=== PATIENT | female | born 1985 | race American Indian/Alaskan Native ===

== ENCOUNTER → 2020-07-06 08:53 | Outpatient (BNVA) | payer MEDICAID, SELFPAY | PROVIDERS: PCP Family Medicine; Visit Provider Advanced Practice Midwife | DX: Z30.42 Encounter for surveillance of injectable contraceptive (principal) | CPT/HCPCS: 96372; 99211 ==

== ENCOUNTER 2020-07-13 11:06 | Outpatient (REF) | payer MEDICAID, SELFPAY ==
[2020-07-13 16:07] LABS: CT PCR NOT DETECTED (Not Detect.); NG PCR NOT DETECTED (Not Detect.)
[2020-07-14 12:22] LABS: BV Int Neg Control Negative (Negative); BV Int Pos Control Positive (Positive)
[2020-07-15 12:26] LABS: HIV RNA PCR Qn Copies <20 NOT DETECTED copies/mL (NOT DETECTED); HIV RNA PCR Qn Log Copies <1.30 NOT DETECTED (NOT DETECTED)
[2020-07-16 08:50] LABS: HBsAGNum1 0.19 S/CO (0.00-0.99); Hepatitis B Surface Antigen Negative (Negative)
[2020-07-18 05:08] LABS: Syphilis Screen Nonreactive (Nonreactive)
[2020-07-19 21:13] LABS: HPV mRNA E6/E7 Not Detected (Not Detected)
== END 2020-07-13 11:07 | disposition home or self-care (01) ==
LOC: HO.LAB 11:06
PROVIDERS: PCP Family Medicine; Visit Provider Obstetrics & Gynecology
DX: N93.0 Postcoital and contact bleeding (principal); Z11.3 Encounter for screening for infections with a predominantly sexual mode of transmission; Z98.51 Tubal ligation status
CPT/HCPCS: 86780; 87340; 87480; 87491; 87510; 87536; 87591; 87624; 87625; 87660; 88142; 99213

== ENCOUNTER 2020-07-19 16:13 | Outpatient (REF) | payer MEDICAID, SELFPAY | END 2020-07-19 16:14 | disposition home or self-care (01) | LOC: HO.LAB 16:13 | PROVIDERS: Visit Provider Obstetrics & Gynecology | DX: Z13.89 Encounter for screening for other disorder (principal) ==

== ENCOUNTER → 2020-08-01 13:05 | Outpatient (BNVA) | payer MEDICAID, SELFPAY | PROVIDERS: PCP Family Medicine; Referring Provider Family Medicine; Visit Provider Advanced Practice Midwife | DX: Z76.89 Persons encountering health services in other specified circumstances (principal) ==

== ENCOUNTER → 2020-09-21 12:56 | Outpatient (BNVA) | payer MEDICAID, SELFPAY | PROVIDERS: Visit Provider Advanced Practice Midwife | DX: Z30.42 Encounter for surveillance of injectable contraceptive (principal) | CPT/HCPCS: 96372; 99211; J1050 ==

== ENCOUNTER → 2020-10-30 09:44 | Outpatient (BNVA) | payer MEDICAID, SELFPAY | PROVIDERS: PCP Family Medicine; Visit Provider Surgery | DX: N64.4 Mastodynia (principal); Z80.3 Family history of malignant neoplasm of breast; Z80.41 Family history of malignant neoplasm of ovary | CPT/HCPCS: 99202 ==

== ENCOUNTER 2020-11-12 08:42 | Outpatient (REF) | payer MEDICAID, SELFPAY ==
[2020-11-12 10:27] LABS: Hematocrit 37.2 % (37-47); Hemoglobin 12.3 g/dl (12.0-16.0); Mean Corpuscular HGB Conc 33.1 g/dl (31.0-35.0); Mean Corpuscular Hemoglobin 25.5 pg (27.0-33.0); Mean Corpuscular Volume 77.2 fL (80-98); Mean Platelet Volume 11.1 fL (9.4-12.3); Platelet Count 247 X10*3/uL (160-400); Red Blood Count 4.82 X10*6/uL (4.20-5.50)
[2020-11-12 11:10] LABS: TSH reflex Free T4 1.09 uIU/mL (0.32-4.0)
== END 2020-11-12 08:43 | disposition home or self-care (01) ==
LOC: HO.LAB 08:42
PROVIDERS: PCP Family Medicine; Visit Provider Advanced Practice Midwife
DX: R30.0 Dysuria (principal); N93.9 Abnormal uterine and vaginal bleeding, unspecified; N89.8 Other specified noninflammatory disorders of vagina
CPT/HCPCS: 36415; 81003; 84443; 85027; 87086; 87088; 87186; 87210; 99212

== ENCOUNTER → 2020-12-07 10:58 | Outpatient (BNVA) | payer MEDICAID, SELFPAY | PROVIDERS: PCP Family Medicine; Visit Provider Advanced Practice Midwife | DX: Z30.42 Encounter for surveillance of injectable contraceptive (principal) | CPT/HCPCS: 96372; 99211 ==

== ENCOUNTER 2020-12-12 11:00 | Outpatient (REF) | payer MEDICAID, SELFPAY ==
--- NOTE | ~2020-12-12 | US_ITS ---
EXAMINATION: US PELVIS COMPLETE CLINICAL INFORMATION: Abnormal uterine bleeding. COMPARISON: Ultrasound pelvis 02/02/2020. TECHNIQUE: Transabdominal and transvaginal imaging of pelvis is performed. FINDINGS: The uterus is anteverted and anteflexed measuring 8.7 cm in length, 4.0 cm in AP and 4.7 cm in transverse dimension. There is a hypoechoic lesion in the anterior lower uterus measuring 1.0 x 0.6 x 0.7 cm consistent with fibroid. There is echogenic fluid with debris within the endometrial canal. Endometrial thickness is 0.4 cm. The right ovary measures 2.5 x 2.2 x 1.7 cm, volume 4.9 mL. There are small follicular cysts seen. The right ovary measures 2.8 x 1.4 x 2.4 cm. The left ovary measures 2.6 x 1.6 x 2.5 cm and volume 5.4 mL. There are small follicular cysts seen. Previously left ovary measured 4.4 x 2.0 x 2.5 cm. There is a small amount of free fluid in the cul-de-sac. US/US pelvic complete IMPRESSION: Small uterine fibroid. Endometrial echogenic fluid collection with internal debris, likely from recent menses. The ovaries are grossly unremarkable. No free fluid seen. No abnormality seen in the right adnexa.
--- NOTE | ~2020-12-12 | US_ITS ---
EXAMINATION: US PELVIS COMPLETE CLINICAL INFORMATION: Abnormal uterine bleeding. COMPARISON: Ultrasound pelvis 02/02/2020. TECHNIQUE: Transabdominal and transvaginal imaging of pelvis is performed. FINDINGS: The uterus is anteverted and anteflexed measuring 8.7 cm in length, 4.0 cm in AP and 4.7 cm in transverse dimension. There is a hypoechoic lesion in the anterior lower uterus measuring 1.0 x 0.6 x 0.7 cm consistent with fibroid. There is echogenic fluid with debris within the endometrial canal. Endometrial thickness is 0.4 cm. The right ovary measures 2.5 x 2.2 x 1.7 cm, volume 4.9 mL. There are small follicular cysts seen. The right ovary measures 2.8 x 1.4 x 2.4 cm. The left ovary measures 2.6 x 1.6 x 2.5 cm and volume 5.4 mL. There are small follicular cysts seen. Previously left ovary measured 4.4 x 2.0 x 2.5 cm. There is a small amount of free fluid in the cul-de-sac. US/US transvaginal IMPRESSION: Small uterine fibroid. Endometrial echogenic fluid collection with internal debris, likely from recent menses. The ovaries are grossly unremarkable. No free fluid seen. No abnormality seen in the right adnexa.
== END 2020-12-12 11:01 | disposition home or self-care (01) ==
LOC: HO.US 11:00
PROVIDERS: Visit Provider Advanced Practice Midwife
DX: N93.9 Abnormal uterine and vaginal bleeding, unspecified (principal); Z80.41 Family history of malignant neoplasm of ovary
CPT/HCPCS: 76830; 76856; 99212

== ENCOUNTER → 2020-12-24 11:28 | Outpatient (BNVA) | payer MEDICAID, SELFPAY | PROVIDERS: PCP Family Medicine; Visit Provider Advanced Practice Midwife ==

== ENCOUNTER 2020-12-31 08:07 | Outpatient (REF) | payer MEDICAID, SELFPAY ==
[2021-01-01 08:53] LABS: CT PCR NOT DETECTED (Not Detect.); NG PCR NOT DETECTED (Not Detect.)
== END 2020-12-31 08:08 | disposition home or self-care (01) ==
LOC: HO.LAB 08:07
PROVIDERS: PCP Family Medicine; Visit Provider Obstetrics & Gynecology
DX: N93.0 Postcoital and contact bleeding (principal); D25.9 Leiomyoma of uterus, unspecified
CPT/HCPCS: 87491; 87591; 99212

== ENCOUNTER 2021-01-11 08:42 | Outpatient (REF) | payer MEDICAID, SELFPAY ==
[2021-01-11 09:13] LABS: COVID-19 Test Negative (Negative)
== END 2021-01-11 08:43 | disposition home or self-care (01) ==
LOC: HO.LAB 08:42
PROVIDERS: Visit Provider Internal Medicine
DX: Z20.822 Contact with and (suspected) exposure to COVID-19 (principal)
CPT/HCPCS: 36415; 87635; C9803

== ENCOUNTER 2021-01-14 10:03 | Outpatient (REF) | payer MEDICAID, SELFPAY ==
--- NOTE | ~2021-01-14 | MM_ITS ---
EXAMINATION: MM DIAGNOSTIC DIGITAL BREAST TOMOSYNTHESIS, BILATERAL US DIAGNOSTIC ULTRASOUND BREAST, LEFT CLINICAL INFORMATION: 35-year-old with recent palpable fullness and tenderness posterior upper outer left breast near axilla. Symptoms have resolved since making appointment. Family history multiple cancers. Patient notes personal BRCA testing negative. No prior breast imaging. The lifetime risk of breast cancer based on the Tyrer-Cuzick Model is 19%. COMPARISON: None (current study represents initial baseline exam). TECHNIQUE: Digital breast tomosynthesis is performed in both the craniocaudal and mediolateral oblique views along with computer-aided detection (CAD). Synthesized 2D images are generated from the tomosynthesis. Ultrasound left breast is targeted to the area of recent clinical concern, posterior upper outer quadrant/axilla. Grayscale imaging and color Doppler are performed without and with harmonics. FINDINGS: The breasts are heterogeneously dense, which may obscure small masses (ACR BI-RADS breast composition Category c). There are no significant masses, abnormal calcifications, or other abnormalities. No adenopathy. The skin contours are smooth. There is no skin thickening or retraction. No coarsening of the Waldo's ligaments. Ultrasound left breast demonstrates no cystic or solid mass, architectural abnormality, or focal duct ectasia. No lymphadenopathy. There is a benign node seen left axilla measuring under 1 cm short axis with normal tuan architecture and color flow. There is no skin thickening or edema tracking in soft tissue planes. Results are discussed with the patient at time of visit. MM/MM tomosynthesis diagnostic BI IMPRESSION: 1. No mammographic evidence of malignancy. 2. Unremarkable targeted left breast ultrasound. ASSESSMENT: BI-RADS 2: Benign RECOMMENDATION: 1. Patient should be managed based on the clinical impression. 2. Otherwise, routine annual screening mammography, by age 40, or earlier as clinical risk factors warrant. This patient's information was entered into a reminder system with a target due date for their next mammogram.
== END 2021-01-14 10:04 | disposition home or self-care (01) ==
LOC: HO.MAMMO 10:03
PROVIDERS: PCP Family Medicine; Visit Provider Surgery
DX: N64.4 Mastodynia (principal); Z80.3 Family history of malignant neoplasm of breast; Z80.41 Family history of malignant neoplasm of ovary
CPT/HCPCS: 76642; 77062; 77066

== ENCOUNTER 2021-01-29 08:35 | Outpatient (REF) | payer MEDICAID, SELFPAY | END 2021-01-29 08:36 | disposition home or self-care (01) | LOC: HO.LAB 08:35 | PROVIDERS: PCP Family Medicine; Visit Provider Obstetrics & Gynecology | DX: N93.0 Postcoital and contact bleeding (principal) | CPT/HCPCS: 58100; 88305 ==

== ENCOUNTER → 2021-02-12 11:37 | Outpatient (BNVA) | payer MEDICAID, SELFPAY | PROVIDERS: PCP Family Medicine; Visit Provider Obstetrics & Gynecology ==

== ENCOUNTER → 2021-02-27 12:55 | Outpatient (BNVA) | payer MEDICAID, SELFPAY | PROVIDERS: PCP Family Medicine; Visit Provider Advanced Practice Midwife | DX: Z30.42 Encounter for surveillance of injectable contraceptive (principal) | CPT/HCPCS: 96372; 99211; J1050 ==

== ENCOUNTER 2021-04-04 11:06 | Emergency (ER) | payer MEDICAID, SELFPAY ==
--- NOTE | ~2021-04-04 | CT_ITS ---
EXAMINATION: CT ABDOMEN AND PELVIS WITH CONTRAST CLINICAL INFORMATION: Generalized abdominal pain. Evaluate for appendicitis. COMPARISON: Previous CT of the abdomen and pelvis August 2008 pelvic ultrasound December 2020 TECHNIQUE: Multidetector volumetric images were obtained from the superior aspect of the liver through the pubic symphysis following administration 85 mL of Omnipaque 350 intravenous contrast. Sagittal and coronal reformatted images were obtained on the technologist's workstation. Oral contrast: Yes This CT examination was performed using dose optimization techniques as appropriate, variously including the following: *Automated exposure control *Adjustment of mA and/or kV according to patient size (this includes techniques or standardized protocols for targeted exams where dose is matched to indication/reason for exam; i.e. extremities or head) *Use of iterative reconstruction technique DLP: 465 mGy-cm FINDINGS: LUNG BASES: The visualized lung bases are unremarkable. LIVER, GALLBLADDER, AND BILIARY TREE: The liver is normal in size, shape, and attenuation. No focal hepatic lesion or biliary ductal dilatation is present. The gallbladder is unremarkable with no evidence of radiopaque gallstones, gallbladder wall thickening, or obvious pericholecystic inflammatory changes. PANCREAS: Unremarkable. SPLEEN: Unremarkable. ADRENAL GLANDS: Unremarkable. KIDNEYS AND URETERS: The kidneys are normal in size, shape, and attenuation. No hydronephrosis, hydroureter, or calculi seen. No perinephric stranding. BLADDER: Unremarkable. GASTROINTESTINAL TRACT: The small and large bowel are unremarkable. The appendix is unremarkable. ABDOMINAL WALL: There is a small umbilical hernia containing fat. LYMPH NODES: Normal. VASCULAR: Unremarkable. PELVIC VISCERA: There is a probable small anterior uterine fibroid. Uterus and adnexa are otherwise unremarkable. OSSEOUS STRUCTURES: Unremarkable. CT/CT abdomen pelvis w con IMPRESSION: Normal-appearing appendix. Small umbilical hernia containing fat. Small uterine fibroid.
[2021-04-04 11:37] VITALS: BP 109/72; PULSE 74; RESP 18; TEMP 36.6; O2SAT 98; BMI 29.9
[2021-04-04 13:49] VITALS: BP 118/71; PULSE 73; RESP 18; TEMP 36.7; O2SAT 100
[2021-04-04] MEDS: 0.9 % Sodium Chloride 1,000 ML 999 ML IV (14:09)
[2021-04-04 14:15] LABS: MANUAL DIFF FLAG NO
[2021-04-04 14:29] LABS: Basophils Absolute Auto 0.1 X10*3/uL (0.0-0.2); Basophils Percent Auto 0.5 % (0-2); Eosinophils Absolute Auto 0.2 X10*3/uL (0.0-0.4); Eosinophils Percent Auto 1.8 % (0-4); Hematocrit 38.3 % (37-47); Hemoglobin 12.5 g/dl (12.0-16.0); Imm Gran Abs Auto 0.06 X10*3/uL (0.00-0.03); Imm Gran Pct Auto 0.6 % (0.0-0.4); Lymphocytes Absolute Auto 3.1 X10*3/uL (1.2-4.9); Lymphocytes Percent Auto 29.5 % (20-40); Mean Corpuscular HGB Conc 32.6 g/dl (31.0-35.0); Mean Corpuscular Volume 76.6 fL (80-98); Mean Platelet Volume 10.4 fL (9.4-12.3); Monocytes Absolute Auto 0.7 X10*3/uL (0.1-1.2); Neutrophils Absolute Auto 6.4 X10*3/uL (2.0-8.3); Neutrophils Percent Auto 60.6 % (45-73); Platelet Count 289 X10*3/uL (160-400); Red Cell Distribution Width 13.2 % (11.0-16.0); White Blood Count 10.5 X10*3/uL (4.8-10.8)
[2021-04-04 14:33] LABS: Glucose Urine UA NEG (NEG); Leukocyte Esterase Urine TRACE (NEG); Nitrite Urine NEG (NEG); Urine Blood NEG (NEG); Urine Ketones NEG (NEG); Urine Protein NEG (NEG-TRACE)
[2021-04-04 14:39] LABS: Appearance Urine CLEAR; Color Urine YELLOW
[2021-04-04 14:48] LABS: UPreg QC Valid YES; Urine Pregnancy NEGATIVE (NEGATIVE)
[2021-04-04 14:52] LABS: Alanine Aminotransferase 10 U/L (0-31); Albumin Level 4.2 g/dL (3.5-5.0); Alkaline Phosphatase 86 U/L (39-117); Anion Gap 13 (12-20); Aspartate Amino Transferase 14 U/L (5-31); Bilirubin Direct 0.3 mg/dL (0.0-0.5); Bilirubin Total 0.8 mg/dL (0.0-1.0); Blood Urea Nitrogen 10 mg/dL (9-16); Calcium 9.6 mg/dL (8.4-10.2); Carbon Dioxide 24 mmol/L (22-29); Chloride 106 mmol/L (96-108); Creatinine Clr Calc Pharmacy 115.6; Estimated Glomerular Filt Rate > 60; Glucose Random 79 mg/dL (60-115); Lipase 23 U/L (8-78); Magnesium 2.1 mg/dL (1.6-2.6); Potassium 3.9 mmol/L (3.3-5.1); Sodium 139 mmol/L (135-145); Total Protein 7.7 g/dL (6.5-8.0)
--- NOTE | 2021-04-04 14:56 | ED.ABDPAIN ---
HPI - Abdominal Pain General Chief Complaint: Abdominal Pain Stated Complaint: VOMITING Time Seen by Provider: 04/04/21 13:40 Source: patient Mode of arrival: ambulatory Limitations: no limitations History of Present Illness HPI narrative: patient presents to ED for abdominal pain /cramping for the past 2 weeks. Patient states has not had a normal bowel movement 2 weeks. states only having small drops of bowel movement when she use the bathroom. Patient states also she has been working out a lot and trying a new protein drinks. Patient denies any vaginal discharge, vaginal bleeding, flank pain, nausea,dysuria, hematuria, or vomiting. MD elicited complaint: abdominal pain Related Data Previous Rx's Medication Instructions Recorded medroxyprogesterone 150 mg/mL 150 mg IM [id number] #1 ml 08/01/20 intramuscular suspension nitrofurantoin 100 mg PO Q12H 5 Days #10 cap 11/12/20 monohydrate/macrocrystals 100 mg capsule polyethylene glycol 3350 [Miralax] 17 g PO DAILY 7 Days #119 g 04/04/21 Allergies Allergy/AdvReac Type Severity Reaction Status Date / Time No Known Allergies Allergy Verified 02/12/21 11:38 [No Known Allergies*] Review of Systems Review of Systems Yes all other systems are reviewed and are negative Constitutional: Reports as per HPI and Reports no additional constitutional complaints Eyes: Reports as per HPI and Reports no additional eye complaints Reports system reviewed and no additional complaints, except as documented and Reports as per HPI Cardiovascular: Reports as per HPI and Reports no additional cardiovascular complaints Respiratory: Reports as per HPI and Reports no additional respiratory complaints Gastrointestinal: Reports as per HPI, Reports no additional gastrointestinal complaints, Reports abdominal pain, Reports constipation and Reports GI cramping Genitourinary: Reports no additional female genitourinary complaints and Reports as per HPI Musculoskeletal: Reports no additional musculoskeletal complaints and Reports as per HPI Reports system reviewed and no additional complaints, except as documented and Reports as per HPI Psychiatric: Reports no additional psychiatric complaints and Reports as per HPI Physical Exam Vital Signs: Vital Signs: Last Vital Signs Temp 98.0 F 04/04/21 13:49 Pulse 73 04/04/21 13:49 Resp 18 04/04/21 13:49 BP 118/71 04/04/21 13:49 Pulse Ox 100 04/04/21 13:49 Body Mass Index 29.9 Const: General: cooperative, healthy appearing, comfortable, no acute distress, well developed, alert, awake and Physically active Orientation/consciousness: patient oriented x3 HENMT: Head: Yes normal to inspection, Yes No palpable skull fracture present, Yes normocephalic, Yes atraumatic and No abrasion Eyes: General: appearance normal, both eyes and all related structures Neck: Neck: Yes normal visual inspection, Yes full ROM, Yes no lymphadenopathy, Yes no meningeal signs, Yes trachea midline, Yes supple and No tender Chest: Chest palpation & inspection: normal inspection of the chest and normal palpation of entire chest wall Resp: Effort & Inspection: normal respiratory effort and able to speak in complete sentences Auscultation: clear to auscultation bilaterally Cardio: Jugular venous distension: no JVD and no JVD Heart sounds: S1 normal heart sound present and S2 normal heart sound present GI: Inspection: Yes normal to inspection and No abdominal wall ecchymosis Palpation (GI): Tenderness to palpation present (GI) (mild) in the RLQ; not in the epigastrum, not in the LLQ, not in the LUQ, not in the RUQ, not at McBurney's point, not periumbilically, not suprapubicly, Keane's sign negative, obturator sign negative, psoas sign negative, with no rebound tenderness, Rovsing's sign negative and no other, no guarding and not rigid : General: No CVA tenderness and Yes no CVA tenderness Back/Spine/Pelvis: Back: no CVA tenderness, No CVA tenderness and No back tenderness Skin: General skin exam: no rashes or lesions noted and elasticity normal Neuro: General: patient oriented x3, gait normal and no meningeal signs Cranial nerves: Yes CN's II-XII intact bilaterally Extrem: General: Yes normal to inspection and Yes full ROM Psych: Appearance: grossly normal, well kempt and not disheveled Course Course Course Narrative: Patient have medical evaluation due to slight right lower quadrant tenderness was sent for CT scan to rule out appendicitis. Patient denies any complaints. Patient have labs drawn. Reevaluation(s) Reevaluation #1: abdominal CT scan came back negative for any acute intra-abdominal processes. Negative for appendicitis or small-bowel obstruction. Urine negative for any infection. Patient is not . Patient will be discharged with MiraLax for constipation. Negative for elevated white blood cell count or electrolyte abnormality. Patient not in any distress. Time: 17:26 MDM - Abdominal Pain MDM Narrative Medical decision making narrative: constipation Lab Data Result diagrams: 04/04/21 13:58 04/04/21 13:58 Labs: Lab Results 04/04/21 04/04/21 04/04/21 Range/Units 13:58 13:58 13:58 WBC 10.5 (4.8-10.8) X10*3/uL RBC 5.00 (4.20-5.50) X10*6/uL Hgb 12.5 (12.0-16.0) g/dl Hct 38.3 (37-47) % MCV 76.6 L (80-98) fL MCH 25.0 L (27.0-33.0) pg MCHC 32.6 (31.0-35.0) g/dl RDW 13.2 (11.0-16.0) % Plt Count 289 (160-400) X10*3/uL MPV 10.4 (9.4-12.3) fL Immature Gran % (Auto) 0.6 H (0.0-0.4) % Neut % (Auto) 60.6 (45-73) % Lymph % (Auto) 29.5 (20-40) % Angelina % (Auto) 7.0 (2-11) % Eos % (Auto) 1.8 (0-4) % Baso % (Auto) 0.5 (0-2) % Lymph # (Auto) 3.1 (1.2-4.9) X10*3/uL Angelina # (Auto) 0.7 (0.1-1.2) X10*3/uL Eos # (Auto) 0.2 (0.0-0.4) X10*3/uL Baso # (Auto) 0.1 (0.0-0.2) X10*3/uL Abs Immat Gran (auto) 0.06 H (0.00-0.03) X10*3/uL Absolute Neuts (auto) 6.4 (2.0-8.3) X10*3/uL Absolute Nucleated RBC 0.000 (0.0-0.012) X10*3/uL Nucleated RBC % (auto) 0.0 (0.0-0.2) /100WBC Sodium 139 (135-145) mmol/L Potassium 3.9 (3.3-5.1) mmol/L Chloride 106 (96-108) mmol/L Carbon Dioxide 24 (22-29) mmol/L Anion Gap 13 (12-20) BUN 10 (9-16) mg/dL Creatinine 0.71 (0.5-1.4) mg/dL Estim Creat Clear Calc 115.6 Estimated GFR > 60 Random Glucose 79 (60-115) mg/dL Calcium 9.6 (8.4-10.2) mg/dL Magnesium 2.1 (1.6-2.6) mg/dL Total Bilirubin 0.8 (0.0-1.0) mg/dL Direct Bilirubin 0.3 (0.0-0.5) mg/dL AST 14 (5-31) U/L ALT 10 (0-31) U/L Alkaline Phosphatase 86 (39-117) U/L Total Creatine Kinase 106 (26-140) U/L Total Protein 7.7 (6.5-8.0) g/dL Albumin 4.2 (3.5-5.0) g/dL Lipase 23 (8-78) U/L Urine Color YELLOW Urine Appearance CLEAR Urine pH 7.0 (5.0-8.0) Ur Specific [place] 1.020 (1.005-1.025) Urine Protein NEG (NEG-TRACE) MG/DL Urine Glucose (UA) NEG (NEG) MG/DL Urine Ketones NEG (NEG) MG/DL Urine Blood NEG (NEG) Urine Nitrite NEG (NEG) Ur Leukocyte Esterase TRACE H (NEG) Urine RBC 0-2 (0) /HPF Urine WBC 1-4 (0-4) /HPF Ur Squamous Epith Cells 2+ /LPF Urine Bacteria 3+ /LPF Urine Test (NEGATIVE) 04/04/21 Range/Units 14:36 WBC (4.8-10.8) X10*3/uL RBC (4.20-5.50) X10*6/uL Hgb (12.0-16.0) g/dl Hct (37-47) % MCV (80-98) fL MCH (27.0-33.0) pg MCHC (31.0-35.0) g/dl RDW (11.0-16.0) % Plt Count (160-400) X10*3/uL MPV (9.4-12.3) fL Immature Gran % (Auto) (0.0-0.4) % Neut % (Auto) (45-73) % Lymph % (Auto) (20-40) % Angelina % (Auto) (2-11) % Eos % (Auto) (0-4) % Baso % (Auto) (0-2) % Lymph # (Auto) (1.2-4.9) X10*3/uL Angelina # (Auto) (0.1-1.2) X10*3/uL Eos # (Auto) (0.0-0.4) X10*3/uL Baso # (Auto) (0.0-0.2) X10*3/uL Abs Immat Gran (auto) (0.00-0.03) X10*3/uL Absolute Neuts (auto) (2.0-8.3) X10*3/uL Absolute Nucleated RBC (0.0-0.012) X10*3/uL Nucleated RBC % (auto) (0.0-0.2) /100WBC Sodium (135-145) mmol/L Potassium (3.3-5.1) mmol/L Chloride (96-108) mmol/L Carbon Dioxide (22-29) mmol/L Anion Gap (12-20) BUN (9-16) mg/dL Creatinine (0.5-1.4) mg/dL Estim Creat Clear Calc Estimated GFR Random Glucose (60-115) mg/dL Calcium (8.4-10.2) mg/dL Magnesium (1.6-2.6) mg/dL Total Bilirubin (0.0-1.0) mg/dL Direct Bilirubin (0.0-0.5) mg/dL AST (5-31) U/L ALT (0-31) U/L Alkaline Phosphatase (39-117) U/L Total Creatine Kinase (26-140) U/L Total Protein (6.5-8.0) g/dL Albumin (3.5-5.0) g/dL Lipase (8-78) U/L Urine Color Urine Appearance Urine pH (5.0-8.0) Ur Specific [place] (1.005-1.025) Urine Protein (NEG-TRACE) MG/DL Urine Glucose (UA) (NEG) MG/DL Urine Ketones (NEG) MG/DL Urine Blood (NEG) Urine Nitrite (NEG) Ur Leukocyte Esterase (NEG) Urine RBC (0) /HPF Urine WBC (0-4) /HPF Ur Squamous Epith Cells /LPF Urine Bacteria /LPF Urine Test NEGATIVE (NEGATIVE) Discharge Plan Discharge Clinical Impression: Constipation Patient Disposition: Home, Self-Care Instructions: Constipation (ED) Additional Instructions: return to the ED immediately for worsening abdominal pain, vaginal bleeding, vaginal discharge, dysuria, hematuria, flank pain, fever, chills, inability to tolerate solid food/liquid, or any other concerning symptoms. Your history physical exam indicate constipation. The labs are normal. CT scan did not show any intra-abdominal processes. CT scan shows possible small uterine fibroid. Recommend high-fiber diet. Please follow-up with your PCP Prescriptions: New polyethylene glycol 3350 [Miralax] 17 gram/dose powder 17 g PO DAILY 7 Days Qty: 119 RF: 0 No Action medroxyprogesterone [Depo-Provera] 150 mg/mL suspension 150 mg IM [id number] Qty: 1 RF: 3 medroxyprogesterone [Depo-Provera] 150 mg/mL syringe 150 mg IM ONCE Qty: 1 RF: 0 nitrofurantoin monohyd/m-cryst [Macrobid] 100 mg capsule 100 mg PO Q12H 5 Days Qty: 10 RF: 0 Referrals: Suzy Mabry MD [Primary Care Provider] - 2 days ( cramping abdominal pain with constipation for [address] scan negative for intra-acute abdominal processes. labs normal. urine negative for UTI. negative) Stand Alone Forms: Work/School Release Interventions: ED Discharge Assessment Last Done: 04/04/21 18:06 Discharge Date/Time: 04/04/21 18:06 Print Language: [place] [facility] Past Medical History Medical History Asthma Family history of breast cancer Family history of ovarian cancer Hx of lipoma Surgical History H/O tubal ligation History of hernia surgery Family History Family History Paternal Aunt Hx of breast cancer Hx of ovarian cancer Maternal Aunt History of uterine cancer Father History of prostate cancer Paternal Grandmother History of colon cancer Paternal Uncle History of prostate cancer Social History Social History Alcohol intake: never Smoked in Last 30 Days: No Use of substances other than those prescribed or required for medical reasons: No Advance Directives: Yes Advance Directives Information Provided: Yes Advance Directives on File: No Patient : No Sexual orientation: Straight/Heterosexual Gender identity: female
[2021-04-04 14:58] LABS: RBC Urine 0-2 /HPF (0); Squamous Epithelial Cell Urine 2+ /LPF
[2021-04-04 14:59] LABS: Bacteria Urine 3+ /LPF
--- NOTE | 2021-04-04 15:58 | PC.NURSE ---
Patient is resting quietly in bed in no dsitress
[2021-04-04] MEDS: iohexoL 350 MG/ML 100 ML INFUS..BTL IV (16:15)
== END 2021-04-04 18:06 | disposition home or self-care (01) ==
PROVIDERS: Physician Assistant; Emergency Provider Emergency Medicine Emergency Medical Services; PCP Family Medicine
DX: K59.00 Constipation, unspecified (principal)
CPT/HCPCS: 36415; 74177; 80053; 80076; 81001; 81025; 82248; 82550; 83690; 83735; 85025; 96360; 99284; Q9967

== ENCOUNTER 2021-05-09 11:52 | Outpatient (REF) | payer MEDICAID, SELFPAY | END 2021-05-09 11:53 | disposition home or self-care (01) | LOC: HO.LAB 11:52 | PROVIDERS: PCP Family Medicine; Visit Provider Internal Medicine | DX: Z20.822 Contact with and (suspected) exposure to COVID-19 (principal) | CPT/HCPCS: C9803; U0003; U0005 ==

== ENCOUNTER → 2021-05-20 13:57 | Outpatient (BNVA) | payer MEDICAID, SELFPAY | PROVIDERS: PCP Family Medicine; Visit Provider Advanced Practice Midwife | DX: Z30.42 Encounter for surveillance of injectable contraceptive (principal) | CPT/HCPCS: 96372; 99211 ==

== ENCOUNTER 2021-08-15 12:10 | Emergency (ER) | payer MEDICAID, SELFPAY ==
--- NOTE | ~2021-08-15 | XR_ITS ---
EXAMINATION: XR FOOT, LEFT CLINICAL INFORMATION: Left foot pain. COMPARISON: None TECHNIQUE: AP, lateral, and oblique views of the left foot. FINDINGS: The bones and soft tissues are normal. No fracture. Alignment is anatomic. Joint spaces are maintained. Incidental note is made of an accessory ossicle adjacent to the cuboid. XR/XR foot LT 2V IMPRESSION: No radiographic evidence of any osseous, articular or soft tissue abnormalities identified.
[2021-08-15 12:17] VITALS: BP 114/70; PULSE 89; RESP 18; TEMP 36.7; O2SAT 99; BMI 26.2
--- NOTE | 2021-08-15 12:57 | ED_ITS ---
HPI - General Adult General Chief complaint: Extremity Injury, Lower Stated complaint: ft pain Time Seen by Provider: 08/15/21 12:57 Source: patient Limitations: no limitations History of Present Illness HPI narrative: Patient complaining of left foot pain. Patient had some skin breakdown between the 4th and 5th toes. Question fungal infection. Now read some redness on the dorsum of the left foot. Patient states pain is 6/10. Patient denies any recent trauma. Patient denies history of diabetes. Patient states no fever chills chest pain shortness of breath. Patient did state her foot was itchy before this redness started. Symptoms mild to moderate. No other complaints at this time. Related Data Previous Rx's Medication Instructions Recorded medroxyprogesterone 150 mg/mL 150 mg IM [id number] #1 ml 08/01/20 intramuscular suspension (Depo-Provera) nitrofurantoin 100 mg PO Q12H 5 Days #10 cap 11/12/20 monohydrate/macrocrystals 100 mg capsule (Macrobid) polyethylene glycol 3350 17 17 g PO DAILY 7 Days #119 g 04/04/21 gram/dose oral powder (Miralax) medroxyprogesterone 150 mg/mL 150 mg IM [id number] Days #1 ml 08/13/21 intramuscular suspension cephalexin 500 mg capsule 500 mg PO TID 7 Days #21 cap 08/15/21 tolnaftate 1 % topical spray 1 spray TOPICAL BID 7 Days #150 g 08/15/21 (Tinactin) Allergies Allergy/AdvReac Type Severity Reaction Status Date / Time No Known Allergies Allergy Verified 08/15/21 12:17 [No Known Allergies*] Review of Systems Constitutional: Constitutional: Denies chills, Denies fever(s) and Denies headache(s) ENT: Denies headache(s) and Denies sore throat Cardiovascular: Cardiovascular: Denies chest pain and Denies dyspnea Respiratory: Respiratory: Denies dyspnea Gastrointestinal: Gastrointestinal: Denies nausea and Denies vomiting Musculoskeletal: Comments: Left foot pain Neurologic: Denies headache(s) Hematologic/Lymphatic: Hematologic/Lymphatic: Denies easy bleeding PMFSH Past Medical History Medical History Asthma Family history of breast cancer Family history of ovarian cancer Hx of lipoma Surgical History H/O tubal ligation History of hernia surgery Family History Family History Paternal Aunt Hx of breast cancer Hx of ovarian cancer Maternal Aunt History of uterine cancer Father History of prostate cancer Paternal Grandmother History of colon cancer Paternal Uncle History of prostate cancer Social History Social History Alcohol intake: never Advance Directives: No Advance Directives Information Provided: No Patient : No Sexual orientation: Straight/Heterosexual Gender identity: Female Physical Exam Vital Signs: Vital Signs: Last Vital Signs Temp 98.0 F 08/15/21 12:17 Pulse 89 08/15/21 12:17 Resp 18 08/15/21 12:17 BP 114/70 08/15/21 12:17 Pulse Ox 99 08/15/21 12:17 Body Mass Index 26.2 vital signs have been reviewed as normal and appeared to be correct. Blood pressure normal. Heart rate normal. Respiration rate normal. Temperature normal. Oxygen saturation normal. Appearance: Alert. Oriented X3. No acute distress. Head: Normal external exam. Normocephalic. Atraumatic. Eyes: PERRLA. EOMI. Conjunctiva and sclera normal. Eyelids normal. ENT: Pharynx normal. Uvula midline. Moist mucous membranes. Neck: Soft full range of motion, no JVD CVS: Heart regular rate and rhythm no murmurs and rubs Respiratory: Breath sounds are clear to auscultation bilaterally. No accessory muscle use noted. Skin: Slight erythema located on the dorsum of the left foot. Extremities: Left foot between the 4th and 5th digit some white skin noted positive tenderness erythema extends to the dorsum of the left foot with no overt lymphangitis positive pulses positive sensation Course Course Course Narrative: Left foot fungal infection Left foot cellulitis Left foot rash Left foot allergic reaction Symptoms are consistent with fungal infection between the 4th and 5th digit slight erythema noted to the dorsum of the foot may be early cellulitis on top of fungal infection will treat accordingly X-rays pending Medical Decision Making Imaging Data Chest x-ray: Radiologist's impression: Launch?Image [address] [address] XRay Report Signed Patient: Iirsh Pope MR#: [id number] : 1985 Acct:[id number] Age/Sex: 36 / F ADM Date: 08/15/21 Loc: HO.ED Attending Dr: Ordering Physician: Zeyad Ochoa MD Date of Service: 08/15/21 Procedure(s): XR foot LT 2V Accession Number(s): [id number] cc: Zeyad Ochoa MD~ EXAMINATION: XR FOOT, LEFT CLINICAL INFORMATION: Left foot pain.? COMPARISON: None? TECHNIQUE: AP, lateral, and oblique views of the left foot. FINDINGS: The bones and soft tissues are normal. No fracture. Alignment is anatomic. Joint spaces are maintained. Incidental note is made of an accessory ossicle adjacent to the cuboid. XR/XR foot LT 2V IMPRESSION: No radiographic evidence of any osseous, articular or soft tissue abnormalities identified. Dictated By: BECKY QUEEN MD Signed By: <Electronically signed by BECKY QUEEN MD in OV> 08/15/21 1316 DD/ 1233 TD/TT:? Inserter Promotional Item: PK Discharge Plan Discharge Clinical Impression: Cellulitis of foot, left, Infection, fungal, left foot Patient Disposition: Home, Self-Care Instructions: Cellulitis (ED), Athlete's Foot (ED) Additional Instructions: X-rays negative Rest elevate your left leg. Medications as directed Prescriptions: New cephalexin 500 mg capsule 500 mg PO TID 7 Days Qty: 21 RF: 0 Tinactin 1 % aerosol,spray 1 spray topical BID 7 Days Qty: 150 RF: 0 No Action medroxyprogesterone 150 mg/mL suspension 150 mg IM [id number] 90 Days Qty: 1 RF: 0 polyethylene glycol 3350 [Miralax] 17 gram/dose powder 17 g PO DAILY 7 Days Qty: 119 RF: 0 medroxyprogesterone [Depo-Provera] 150 mg/mL suspension 150 mg IM [id number] Qty: 1 RF: 3 medroxyprogesterone [Depo-Provera] 150 mg/mL syringe 150 mg IM ONCE Qty: 1 RF: 0 nitrofurantoin monohyd/m-cryst [Macrobid] 100 mg capsule 100 mg PO Q12H 5 Days Qty: 10 RF: 0
== END 2021-08-15 13:57 | disposition home or self-care (01) ==
PROVIDERS: Emergency Provider Emergency Medicine; PCP Family Medicine
DX: L03.116 Cellulitis of left lower limb (principal); B35.3 Tinea pedis
CPT/HCPCS: 73620; 99283

== ENCOUNTER → 2021-08-19 11:01 | Outpatient (BNVA) | payer MEDICAID, SELFPAY | PROVIDERS: PCP Family Medicine; Visit Provider Advanced Practice Midwife | DX: Z30.42 Encounter for surveillance of injectable contraceptive (principal) | CPT/HCPCS: 96372; 99211 ==

== ENCOUNTER 2021-10-07 11:12 | Outpatient (REF) | payer MEDICAID, SELFPAY ==
[2021-10-07 12:39] LABS: COVID-19 Test Positive (Negative); IDNOW Serial# 16C4AD1C
== END 2021-10-07 11:13 | disposition home or self-care (01) ==
LOC: HO.LAB 11:12
PROVIDERS: Visit Provider Internal Medicine
DX: Z20.822 Contact with and (suspected) exposure to COVID-19 (principal)
CPT/HCPCS: 36415; 87635; C9803

== ENCOUNTER → 2021-11-11 10:42 | Outpatient (BNVA) | payer MEDICAID, SELFPAY | PROVIDERS: PCP Family Medicine; Visit Provider Advanced Practice Midwife | DX: Z30.42 Encounter for surveillance of injectable contraceptive (principal) | CPT/HCPCS: 96372; 99211 ==

== ENCOUNTER → 2022-02-07 09:02 | Outpatient (BNVA) | payer MEDICAID, SELFPAY | PROVIDERS: PCP Family Medicine; Visit Provider Advanced Practice Midwife | DX: N93.0 Postcoital and contact bleeding (principal) | CPT/HCPCS: 96372; 99211 ==

== ENCOUNTER 2022-02-28 10:32 | Outpatient (REF) | payer MEDICAID, SELFPAY ==
[2022-02-28 20:21] LABS: CT PCR NOT DETECTED (Not Detect.); NG PCR NOT DETECTED (Not Detect.)
[2022-03-01 12:49] LABS: BV Int Neg Control Negative (Negative); BV Int Pos Control Positive (Positive)
[2022-03-07 06:25] LABS: HPV mRNA E6/E7 rflx Not Detected (Not Detected)
== END 2022-02-28 10:33 | disposition home or self-care (01) ==
LOC: HO.LAB 10:32
PROVIDERS: PCP Family Medicine; Visit Provider Advanced Practice Midwife
DX: Z01.419 Encounter for gynecological examination (general) (routine) without abnormal findings (principal); Z11.51 Encounter for screening for human papillomavirus (HPV); K64.9 Unspecified hemorrhoids
CPT/HCPCS: 87480; 87491; 87510; 87591; 87624; 87660; 88142

== ENCOUNTER → 2022-05-02 09:06 | Outpatient (BNVA) | payer MEDICAID, SELFPAY | PROVIDERS: PCP Family Medicine; Visit Provider Advanced Practice Midwife | DX: Z30.42 Encounter for surveillance of injectable contraceptive (principal); D25.9 Leiomyoma of uterus, unspecified | CPT/HCPCS: 96372; 99211 ==

== ENCOUNTER → 2022-09-01 11:35 | Outpatient (BNVA) | payer MEDICAID, SELFPAY | PROVIDERS: PCP Family Medicine; Visit Provider Advanced Practice Midwife | DX: Z30.42 Encounter for surveillance of injectable contraceptive (principal); Z87.42 Personal history of other diseases of the female genital tract | CPT/HCPCS: 81025; 96372; 99212 ==

== ENCOUNTER → 2022-11-27 09:07 | Outpatient (BNVA) | payer MEDICAID, SELFPAY | PROVIDERS: PCP Family Medicine; Visit Provider Advanced Practice Midwife | DX: Z30.42 Encounter for surveillance of injectable contraceptive (principal) | CPT/HCPCS: 96372; 99211 ==

== ENCOUNTER → 2023-02-19 09:01 | Outpatient (BNVA) | payer MEDICAID, SELFPAY | PROVIDERS: PCP Family Medicine; Visit Provider Advanced Practice Midwife | DX: Z30.42 Encounter for surveillance of injectable contraceptive (principal) | CPT/HCPCS: 96372; 99211 ==

== ENCOUNTER 2023-02-20 12:55 | Outpatient (REF) | payer MEDICAID, SELFPAY ==
--- NOTE | ~2023-02-20 | XR_ITS ---
EXAMINATION: XR CERVICAL SPINE CLINICAL INFORMATION: Pain. No injury. COMPARISON: None available. TECHNIQUE: 6 views of the cervical spine. FINDINGS: Straightening of the cervical curvature. The vertebral alignment is normal. No acute fracture or subluxation. Vertebral body heights and disc spaces are maintained. Facet degeneration at C7-T1. No prevertebral soft tissue swelling. Neural foramen are grossly patent. Lung apices are clear. XR/XR cervical spine 5V IMPRESSION: No radiographic evidence of acute fracture.
== END 2023-02-20 12:56 | disposition home or self-care (01) ==
LOC: HO.HHCX 12:55
PROVIDERS: Visit Provider General Practice
DX: M54.2 Cervicalgia (principal)
CPT/HCPCS: 72050

== ENCOUNTER 2023-03-11 14:01 | Outpatient (REF) | payer MEDICAID, SELFPAY ==
[2023-03-12 03:28] LABS: CT PCR NOT DETECTED (Not Detect.); NG PCR NOT DETECTED (Not Detect.)
[2023-03-12 13:40] LABS: BV Int Neg Control Negative (Negative); BV Int Pos Control Positive (Positive)
== END 2023-03-11 14:02 | disposition home or self-care (01) ==
LOC: HO.LNP 14:01
PROVIDERS: PCP Family Medicine; Visit Provider Advanced Practice Midwife
DX: Z01.419 Encounter for gynecological examination (general) (routine) without abnormal findings (principal); Z87.42 Personal history of other diseases of the female genital tract; K64.9 Unspecified hemorrhoids
CPT/HCPCS: 0353U; 81003; 87480; 87510; 87660

== ENCOUNTER 2023-04-15 16:12 | Outpatient (REF) | payer MEDICAID, SELFPAY ==
[2023-04-15 17:41] LABS: MANUAL DIFF FLAG NO
[2023-04-15 17:52] LABS: Basophils Absolute Auto 0.1 X10*3/uL (0.0-0.2); Basophils Percent Auto 0.8 % (0-2); Eosinophils Absolute Auto 0.2 X10*3/uL (0.0-0.4); Eosinophils Percent Auto 1.7 % (0-4); Hematocrit 37.2 % (37.0-47.0); Hemoglobin 12.1 g/dl (12.0-16.0); Imm Gran Abs Auto 0.04 X10*3/uL (0.00-0.03); Imm Gran Pct Auto 0.5 % (0.0-0.4); Lymphocytes Percent Auto 23.5 % (20-40); Mean Corpuscular HGB Conc 32.5 g/dl (31.0-35.0); Mean Corpuscular Hemoglobin 24.8 pg (27.0-33.0); Mean Corpuscular Volume 76.4 fL (80.0-98.0); Mean Platelet Volume 11.3 fL (9.4-12.3); Monocytes Absolute Auto 0.6 X10*3/uL (0.1-1.2); Monocytes Percent Auto 6.6 % (2-11); Neutrophils Absolute Auto 5.8 x10*3/uL (2.0-8.3); Neutrophils Percent Auto 66.9 % (45-73); Platelet Count 247 X10*3/uL (160-400); Red Blood Count 4.87 X10*6/uL (4.20-5.50); Red Cell Distribution Width 13.2 % (11.0-16.0); White Blood Count 8.7 X10*3/uL (4.8-10.8)
[2023-04-15 18:05] LABS: Estimated Average Glucose 88 mg/dL; Hemoglobin A1c % 4.7 %
[2023-04-15 18:59] LABS: Alanine Aminotransferase 18 U/L (0-31); Albumin Level 4.2 g/dL (3.5-5.0); Alkaline Phosphatase 78 U/L (39-117); Anion Gap 16 (12-20); Aspartate Amino Transferase 18 U/L (5-31); Bilirubin Total 0.7 mg/dL (0.0-1.0); Blood Urea Nitrogen 10 mg/dL (9-16); Calcium 9.8 mg/dL (8.4-10.2); Carbon Dioxide 21 mmol/L (22-29); Chloride 109 mmol/L (96-108); Estimated Glomerular Filt Rate > 60; Glucose Random 70 mg/dL (60-115); Iron 43 mcg/dL (30-160); Percent Iron Saturation 18 % (15-50); Potassium 3.5 mmol/L (3.3-5.1); Sodium 142 mmol/L (135-145); Total Iron Binding Capacity 242 mcg/dL (228-428); Total Protein 7.5 g/dL (6.5-8.0); Unsaturated Iron Binding 199 ug/dL
[2023-04-15 19:16] LABS: Ferritin 160 ng/mL (10-122); Vitamin D 25-OH Total 18.3 ng/mL (>30)
[2023-04-15 19:27] LABS: Folate 13.7 ng/mL (> or = 4.0); Vitamin B12 419 pg/mL (200-900)
[2023-04-17 06:14] LABS: HBS Num1 38.06 mIU/mL (0-7.99); HBc Num1 0.14 S/CO (0.00-0.79); HIV AB/AG Nonreactive (Nonreactive); HIV Num 1 0.07 S/CO (0.00-0.99); Hepatitis B Core Antibody Nonreactive (Nonreactive); Hepatitis B Surface Antigen Negative (Negative); ~Hepatitis B Surface Antibody REACTIVE (Nonreactive); ~Hepatitis C Antibody Nonreactive (Nonreactive)
[2023-04-17 12:08] LABS: Syphilis Screen Nonreactive (Nonreactive)
== END 2023-04-15 16:13 | disposition home or self-care (01) ==
LOC: HO.HHCL 16:12
PROVIDERS: Visit Provider Family Medicine
DX: Z00.00 Encounter for general adult medical examination without abnormal findings (principal); E55.9 Vitamin D deficiency, unspecified; R10.13 Epigastric pain; Z11.3 Encounter for screening for infections with a predominantly sexual mode of transmission; Z86.2 Personal history of diseases of the blood and blood-forming organs and certain disorders involving the immune mechanism
CPT/HCPCS: 36415; 80053; 82306; 82607; 82728; 82746; 83036; 83540; 85025; 86704; 86706; 86780; 86803; 87340; 87389

== ENCOUNTER 2023-05-07 11:03 | Outpatient (AMB) | payer MEDICAID, SELFPAY ==
[2023-05-07 11:20] VITALS: BMI 27.2
--- NOTE | 2023-05-07 11:20 | AM.OFFVISNUR ---
Intake Vital Signs 05/07/23 11:20 Height 5 ft 5 in Weight 74.162 kg BMI 27.2 Intake Visit Reasons: Depo inj. Allergies No Known Allergies [No Known Allergies*] Allergy (Verified 03/11/23 14:05) Nursing Note [place] is here today for her scheduled Depo-Provera inj. She ad some dk spotting 04/25/23. Pt is concerned about Depo-Provera and increased risk of Osteoporosis, as she has a family hx of this. Pt was advised to schedule consult with provider to discuss her concerns. Office Procedures Depo Questionnaire If YES to any of the following questions, please consult a provider. Date of last injection: 02/19/23 Date of last menstrual period: 04/25/23 Date of last gynecology exam: 03/11/23 Menstrual pattern since last injection has been: Light Irregular bleeding?: No Breast lumps or other breast changes?: No Changes in weight or appetite?: No Depression or changes in mood?: No Abnormal hair growth or loss?: No Skin problems (rash, acne, discoloration)?: No Pain at the injection site?: No Headaches?: No Nervousness?: No Abdominal pain or cramping?: No Dizziness or nausea?: No Fatigue or weakness?: No Decrease in sexual drive?: No Chest pain or shortness of breath?: No Swelling in arms or legs?: No Any other problems or concerns?: Pt concerned regarding effects of Depo-Provera and Osteoporosis. Form completed by?: Tho chairez LPN Office Meds Depo-Provera Performing Provider: Araceli Valdivia CNM Administered by: Shayy Chairez LPN on 05/07/23 11:21 Dose Route Admin Location Lot Number Expiration Date NDC Lease Picker 150 mg IM rt. deltoid [id number] 10/04/26 99757-596-63 [facility] Coding Level of Care Code Established Pt Est Pt Level 1 (03410) Patient Type Established History Problem Focused Exam Problem Focused Medical Decision Making Low Complexity Diagnoses Time Spent (min) 20 Assessment & Plan Assessment & Plan Orders: Orders AMB Medroxyprogesterone Injection Patient Supplied Today Z87.42 - Personal history of other diseases of the female genital tract
== END 2023-05-07 12:52 | disposition home or self-care (01) ==
LOC: HO.HWS 11:03
PROVIDERS: PCP Family Medicine; Visit Provider Advanced Practice Midwife
DX: Z87.42 Personal history of other diseases of the female genital tract (principal)

== ENCOUNTER → 2023-05-07 11:03 | Outpatient (BNVA) | payer MEDICAID, SELFPAY | PROVIDERS: PCP Family Medicine; Visit Provider Advanced Practice Midwife | DX: Z87.42 Personal history of other diseases of the female genital tract (principal) | CPT/HCPCS: 96372; 99211; J1050 ==

== ENCOUNTER 2023-10-08 14:52 | Outpatient (REF) | payer MEDICAID, SELFPAY | END 2023-10-08 14:53 | disposition home or self-care (01) | LOC: HO.LAB 14:52 | PROVIDERS: PCP Family Medicine; Visit Provider Advanced Practice Midwife | DX: N94.9 Unspecified condition associated with female genital organs and menstrual cycle (principal); R10.2 Pelvic and perineal pain; Z20.2 Contact with and (suspected) exposure to infections with a predominantly sexual mode of transmission; Z11.3 Encounter for screening for infections with a predominantly sexual mode of transmission; Z11.59 Encounter for screening for other viral diseases; Z86.018 Personal history of other benign neoplasm | CPT/HCPCS: 0353U; 81003; 81025; 86704; 86780; 86803; 87389; 87480; 87510; 87660; 99212 ==

== ENCOUNTER 2023-10-08 14:52 | Outpatient (AMB) | payer MEDICAID, SELFPAY ==
--- NOTE | 2023-10-08 14:54 | MHC.OFFVIS ---
Intake Vital Signs 10/08/23 14:55 Height 5 ft 5 in Weight 160 lb BMI 26.6 BP 126/80 Intake Visit Reasons: BC follow up/30 mins Intake Note: pt stopped depo, pt c/o yeast infection would like STD testing Allergies No Known Allergies [No Known Allergies*] Allergy (Verified 10/08/23 14:54) Is last menstrual period known: Yes Last menstrual period: 09/04/23 HPI HPI Comments History of Present Illness Details Patient is here today with concerns: Stopped Depo due to concerns re: bone loss. She reports on cycle in September. History of very painful heavy menses, used Depo for many years. For to just watch and see how her body reacts now that she is not on Depo-Provera. She is reports she is prone to yeast infections and she used a suppository to clean herself out after her last week. She has cramps today. [facility] Medical History (Updated 10/08/23 @ 15:26 by Chantelle Bernal CNM) Asthma Family history of ovarian cancer Family history of breast cancer Hx of lipoma Surgical History History of hernia surgery H/O tubal ligation Family History Paternal Aunt Hx of breast cancer Hx of ovarian cancer Maternal Aunt History of uterine cancer Father History of prostate cancer Paternal Grandmother History of colon cancer Paternal Uncle History of prostate cancer Social History Alcohol intake: never Sexual orientation: Straight/Heterosexual Gender identity: Female Female Reproductive History Menstrual Age of Menarche: 10 Date of last menstrual period: 09/04/23 Review of Systems Const All systems reviewed & are unremarkable except as noted in HPI and below Physical Exam Vital Signs: Last Vital Signs BP 126/80 10/08/23 14:55 BMI result Body Mass Index 26.6 Const General: cooperative, healthy appearing and no acute distress Orientation/consciousness: patient oriented x3 GI Inspection: Yes normal to inspection Palpation (GI): Soft to palpation and Other GI palpation findings present (Nontender) Rectal Exam - Female: visual inspection normal General: Yes bladder normal to palpation External Female Exam: normal appearance of the urethra Speculum Exam - Vagina: normal appearance of the vagina, normal palpation and normal vaginal discharge Speculum Exam - Cervix: normal appearance of the cervix and normal palpation Bimanual exam- vagina & uterus: normal bimanual exam, normal palpation, uterine size normal, bladder normal to palpation, normal palpation, uterine shape normal and Uterine tenderness (slightly) Bimanual Exam- Adnexa, other: normal adnexae Neuro General: patient oriented x3 Results AMB Test Urine AMB Test Urine Negative Last Edit by GINO Sanchez on 10/08/23 15:08 AMB Urinalysis, Automated UA Leukoctes 0 Jaja/uL Last Edit by GINO Sanchez on 10/08/23 15:08 UA Nitrite Negative Last Edit by Sarah De Dios Darvin on 10/08/23 15:08 UA Urobilinogen 2 mg/dL Last Edit by GINO Sanchez on 10/08/23 15:08 UA Protein 0 mg/dL Last Edit by Sraah De Dios Darvin on 10/08/23 15:08 UA pH 7.5 Last Edit by GINO Sanchez on 10/08/23 15:08 UA Blood 0 Johnny/uL Last Edit by Sarah De Dios Darvin on 10/08/23 15:08 UA Specific Richards 1.015 Last Edit by Sarah De Dios Darvin on 10/08/23 15:08 UA Ketone Negative Last Edit by GINO Sanchez on 10/08/23 15:08 UA Bilirubin 0 mg/dL Last Edit by Sarah De Dios Darvin on 10/08/23 15:08 UA Glucose 0 mg/dL Last Edit by Sarah De Dios [facility] on 10/08/23 15:08 Results Reviewed Results Reviewed: Laboratory Last Values Urine pH (Auto) 7.5 10/08/23 15:07 Specific Richards (Auto) 1.015 10/08/23 15:07 Urine Protein (Auto) 0 mg/dL 10/08/23 15:07 Glucose (UA)(Auto) 0 mg/dL 10/08/23 15:07 Urine Ketones (Auto) Negative 10/08/23 15:07 Urine Blood (Auto) 0 Johnny/uL 10/08/23 15:07 Urine Nitrite (Auto) Negative 10/08/23 15:07 Urine Bilirubin (Auto) 0 mg/dL 10/08/23 15:07 Urine Urobilinogen (Auto) 2 mg/dL 10/08/23 15:07 Leukocyte Esterase (Auto) 0 Jaja/uL 10/08/23 15:07 Tst Clinic Negative 10/08/23 15:07 Assessment & Plan Assessment & Plan (1) Pelvic pain: Code(s): R10.2 - Pelvic and perineal pain (2) History of uterine fibroid: Code(s): Z86.018 - Personal history of other benign neoplasm (3) control counseling: Code(s): Z30.09 - Encounter for other general counseling and advice on contraception (4) Possible exposure to STD: Code(s): Z20.2 - Contact with and (suspected) exposure to infections with a predominantly sexual mode of transmission Plan Discussed previous ultrasound with findings of fibroids. Counseled re: Leiomyoma: common pelvic neoplasm. Differential diagnosis-may include leiomyosarcoma which is a rare uterine sarcoma 3-7/100,000, difficult to distinguish from fibroids on ultrasound from uterine sarcoma's. Unlikely any single test will have a highly positive predictive value. Hysterectomy is not recommended for sole purpose of excluding malignant neoplasm. Discussed control options including Mirena IUD, Depo-Provera, pills, NuvaRing. Plan ultrasound for follow-up on fibroids and pelvic pain, consider labs due to potential exposure to STDs. Return to the office after ultrasound for results and plan of care. Discussed use of [id number] medications such as Tylenol or ibuprofen, use as directed with taken with food. Use of a heating pad. If significant pelvic pain to report to the emergency room for immediate evaluation. All of her questions and concerns were addressed to the best of my ability and shared decision making. She is agreeable to the plan of care. Orders: Orders AMB HCG Urine Test Today Z32.02 - Encounter for test, result negative Bacterial Vaginosis Panel Today R10.2 - Pelvic and perineal pain, Z20.2 - Contact with and (suspected) exposure to infections with a predominantly sexual mode of transmission, Z86.018 - Personal history of other benign neoplasm CT NG by PCR Today R10.2 - Pelvic and perineal pain, Z20.2 - Contact with and (suspected) exposure to infections with a predominantly sexual mode of transmission, Z86.018 - Personal history of other benign neoplasm US pelvic and transvaginal Today R10.2 - Pelvic and perineal pain, Z86.018 - Personal history of other benign neoplasm Syphilis Screen Today Z20.2 - Contact with and (suspected) exposure to infections with a predominantly sexual mode of transmission AMB Urinalysis Automated Today N94.9 - Unspecified condition associated with female genital organs and menstrual cycle HIV Ab/Ag Today Z20.2 - Contact with and (suspected) exposure to infections with a predominantly sexual mode of transmission Hepatitis C Antibody Today Z20.2 - Contact with and (suspected) exposure to infections with a predominantly sexual mode of transmission Hepatitis B Core Antibody Today Z20.2 - Contact with and (suspected) exposure to infections with a predominantly sexual mode of transmission Coding Level of Care Code Est Pt Level 4 (97448) Diagnoses Pelvic pain R10.2 History of uterine fibroid Z86.018 control counseling Z30.09 Possible exposure to STD Z20.2
[2023-10-08 14:55] VITALS: BP 126/80; BMI 26.6
== END 2023-10-08 15:46 | disposition home or self-care (01) ==
LOC: HO.HWS 14:52
PROVIDERS: PCP Family Medicine; Visit Provider Advanced Practice Midwife
DX: R10.2 Pelvic and perineal pain (principal); Z86.018 Personal history of other benign neoplasm; Z30.09 Encounter for other general counseling and advice on contraception; Z20.2 Contact with and (suspected) exposure to infections with a predominantly sexual mode of transmission; Z32.02 Encounter for pregnancy test, result negative; N94.9 Unspecified condition associated with female genital organs and menstrual cycle
CPT/HCPCS: 99214

== ENCOUNTER 2023-10-08 15:21 | Outpatient (REF) | payer MEDICAID, SELFPAY | END 2023-10-08 15:22 | disposition home or self-care (01) | LOC: HO.LNP 15:21 | PROVIDERS: Visit Provider Advanced Practice Midwife | DX: Z13.89 Encounter for screening for other disorder (principal) ==

== ENCOUNTER 2023-10-15 14:30 | Outpatient (REF) | payer MEDICAID, SELFPAY ==
--- NOTE | ~2023-10-15 | US_ITS ---
EXAMINATION: US PELVIS CLINICAL INFORMATION: Pelvic and perineal pain. COMPARISON: CT abdomen pelvis 04/04/2021, ultrasound pelvis 12/12/2020. TECHNIQUE: Ultrasound of the pelvis is performed using both transabdominal and transvaginal transducers along with Doppler. Transvaginal imaging is performed due to inadequate visualization transabdominally. FINDINGS: Uterus: The uterus is anteverted and measures 8.1 x 4.8 x 5.2 cm. The double wall endometrial thickness is 10 mm. The uterus is smooth in contour and has normal myometrial echogenicity. Small dorsal fibroid measuring 5 x 3 x 4 mm, slightly smaller than previous when this measured 10 x 6 x 7 mm. Adnexa: Both ovaries are visualized. There is normal color flow to the adnexa. There is no ovarian torsion. There is no pelvic ascites or fluid collection. Right ovary measures 3.0 x 2.0 x 2.6 cm for a volume of 7.9 mL which includes a 2.8 cm minimally complex cyst. Left ovary measures 2.6 x 1.9 x 1.8 cm for a volume of 4.6 mL and appears normal. US/US pelvic and transvaginal IMPRESSION: 1. Small uterine fibroid. 2. Minimally complex right ovarian cyst. No follow up should be needed. 3. No other significant abnormality is seen.
== END 2023-10-15 14:31 | disposition home or self-care (01) ==
LOC: HO.HMGCX 14:30
PROVIDERS: PCP Family Medicine; Visit Provider Advanced Practice Midwife
DX: R10.2 Pelvic and perineal pain (principal); Z86.018 Personal history of other benign neoplasm
CPT/HCPCS: 76830; 76856

== ENCOUNTER 2023-10-29 10:29 | Outpatient (AMB) | payer MEDICAID, SELFPAY ==
--- NOTE | 2023-10-29 10:32 | A.OFFVIS_ITS ---
Intake Vital Signs 10/29/23 10:34 BP 110/72 Intake Visit Reasons: US follow up Allergies No Known Allergies [No Known Allergies*] Allergy (Verified 10/29/23 10:33) Is last menstrual period known: Yes Last menstrual period: 10/16/23 HPI HPI Comments History of Present Illness Details Patient is here for an ultrasound follow-up due to heavy menstrual bleeding. She reports her last cycle was normal and no concerns for bleeding at this time. She would like to monitor her menstrual cycles, not start cycle control therapy at this time. She reports discomfort at times on the right side in the area where her hernia surgery was. She reports a history of rectal bleeding in the past and was seen a few years back she reports the bleeding has been ongoing from the hemorrhoids here [facility] Medical History (Updated 10/29/23 @ 11:51 by Chantelle Bernal CNM) Asthma Family history of ovarian cancer Family history of breast cancer Hx of lipoma Surgical History History of hernia surgery H/O tubal ligation Family History Paternal Aunt Hx of breast cancer Hx of ovarian cancer Maternal Aunt History of uterine cancer Father History of prostate cancer Paternal Grandmother History of colon cancer Paternal Uncle History of prostate cancer Social History Alcohol intake: never Sexual orientation: Straight/Heterosexual Gender identity: Female Female Reproductive History Menstrual Age of Menarche: 10 Date of last menstrual period: 10/16/23 Physical Exam Vital Signs: Last Vital Signs BP 110/72 10/29/23 10:34 Results Reviewed Results Reviewed: [facility] [place] [address] Ultrasound Report Signed Patient: Irish Pope MR#: [id number] : 1985 Acct:[id number] Age/Sex: 38 / F ADM Date: 10/15/23 Loc: HO.HMGCX Attending Dr: Chantelle Bernal CNM Ordering Physician: Chantelle Bernal CNM Date of Service: 10/15/23 Procedure(s): US pelvic and transvaginal Accession Number(s): [id number] cc: Chantelle Bernal CNM; Suzy Mabry MD~ EXAMINATION: US PELVIS CLINICAL INFORMATION: Pelvic and perineal pain. COMPARISON: CT abdomen pelvis 04/04/2021, ultrasound pelvis 12/12/2020. TECHNIQUE: Ultrasound of the pelvis is performed using both transabdominal and transvaginal transducers along with Doppler. Transvaginal imaging is performed due to inadequate visualization transabdominally. FINDINGS: Uterus: The uterus is anteverted and measures 8.1 x 4.8 x 5.2 cm. The double wall endometrial thickness is 10 mm. The uterus is smooth in contour and has normal myometrial echogenicity. Small dorsal fibroid measuring 5 x 3 x 4 mm, slightly smaller than previous when this measured 10 x 6 x 7 mm. Adnexa: Both ovaries are visualized. There is normal color flow to the adnexa. There is no ovarian torsion. There is no pelvic ascites or fluid collection. Right ovary measures 3.0 x 2.0 x 2.6 cm for a volume of 7.9 mL which includes a 2.8 cm minimally complex cyst. Left ovary measures 2.6 x 1.9 x 1.8 cm for a volume of 4.6 mL and appears normal. US/US pelvic and transvaginal IMPRESSION: 1. Small uterine fibroid. 2. Minimally complex right ovarian cyst. No follow up should be needed. 3. No other significant abnormality is seen. Dictated By: Zeyad Sagastume MD Signed By: <Electronically signed by Zeyad Sagastume MD in OV> 10/19/23 1637 DD/ 1508 TD/TT: Medical Assistant Dermatology: SS Assessment & Plan Assessment & Plan (1) Uterine fibroid: Code(s): D25.9 - Leiomyoma of uterus, unspecified Qualifiers: Uterine leiomyoma location: unspecified location Qualified Code(s): D25.9 - Leiomyoma of uterus, unspecified (2) Encounter to discuss test results: Code(s): Z71.2 - Person consulting for explanation of examination or test findings (3) Rectal bleeding: Code(s): K62.5 - Hemorrhage of anus and rectum Plan Discussed: Ultrasound findings including ovarian cyst and fibroid. Most cysts are benign and resolve on their own. Radiology recommendations do do not suggest any concerns for surveillance. If she was to have any pain on the right side or increased discomfort she is advised today to notify the office so she can have a sooner follow-up and evaluation. Fibroid Counseled re: Leiomyoma: common pelvic neoplasm. Differential diagnosis- may include leiomyosarcoma which is a rare uterine sarcoma 3-7/100,000, difficult to distinguish from fibroids on ultrasound from uterine sarcoma's. Unlikely any single test will have a highly positive predictive value. H ysterectomy is not recommended for sole purpose of excluding malignant neoplasm. Report any AUB. Pelvic pressure, bloating, or pain. Currently the fibroid has decreased in size over the last couple of years. Menstrual cycle is currently normal not heavy, she would prefer to watch it with expected management versus a trial of hormones at this time. Advised small risk with a tubal ligation history, if Ms. Menses or late menses to do a home test to confirm, if positive would need to be seen immediately due to the risk of a tubal . Referral sent to GI for rectal bleeding. All of her questions and concerns were addressed to the best of my ability and shared decision making. She is agreeable to the plan of care. Schedule annual exam for March 2024. Orders: Referrals General Surgery Referral K64.9 - Unspecified hemorrhoids Coding Level of Care Code Est Pt Level 3 (63222) Diagnoses Uterine leiomyoma, unspecified location D25.9 Uterine leiomyoma location: unspecified location Encounter to discuss test results Z71.2 Rectal bleeding K62.5
[2023-10-29 10:34] VITALS: BP 110/72
== END 2023-10-29 11:01 | disposition home or self-care (01) ==
LOC: HO.HWS 10:29
PROVIDERS: PCP Family Medicine; Visit Provider Advanced Practice Midwife
DX: D25.9 Leiomyoma of uterus, unspecified (principal); Z71.2 Person consulting for explanation of examination or test findings; K62.5 Hemorrhage of anus and rectum
CPT/HCPCS: 99213

== ENCOUNTER → 2023-10-29 10:29 | Outpatient (BNVA) | payer MEDICAID, SELFPAY | PROVIDERS: PCP Family Medicine; Visit Provider Advanced Practice Midwife | DX: D25.9 Leiomyoma of uterus, unspecified (principal); Z71.2 Person consulting for explanation of examination or test findings; K62.5 Hemorrhage of anus and rectum | CPT/HCPCS: 99212 ==

== ENCOUNTER 2024-02-17 10:18 | Outpatient (AMB) | payer MEDICAID, SELFPAY ==
--- NOTE | 2024-02-17 10:39 | A.OFFVIS_ITS ---
Vital Signs 02/17/24 10:49 Height 5 ft 5 in Weight 156 lb BMI 26.0 BP 141/74 H Blood Pressure Location Rt brachial Position Sitting Pulse 80 Intake Visit Reasons: Hemorrhoids Intake Note: This patient presents for an assessment for hemorrhoids. Patient c/o; reports occasional spotting after bowel movements, reports no rectal pain, straining with bowel movements or constipation. Police Chief Deputy Required: No Vocational Instructor: Vocational Instructor Present (Kayleigh) Accompanied by: Self / Same As Patient Allergies No Known Allergies [No Known Allergies*] Allergy (Verified 02/17/24 10:48) Medication List - Last Reconciled 02/17/24 by Maynor Billingsley MD No Known Home Meds HPI HPI Hemorrhoids: Details: [age] year old female referred for hemorrhoid issues. She says she has had hemorrhoids for about 18 years now since she 1st became . She occasionally has passage of bright blood per rectum seen on wiping. She also has itching around her anus once in a while and discomfort. She denies being constipated. She does describe her symptoms as mild but says that she wanted this rechecked. [facility] Medical History (Updated 02/17/24 @ 11:01 by Maynor Billingsley MD) Bleeding hemorrhoids Asthma Family history of ovarian cancer Family history of breast cancer Hx of lipoma Surgical History History of hernia surgery H/O tubal ligation Family History Paternal Aunt Hx of breast cancer Hx of ovarian cancer Maternal Aunt History of uterine cancer Father History of prostate cancer Paternal Grandmother History of colon cancer Paternal Uncle History of prostate cancer Social History Alcohol intake: never Sexual orientation: Straight/Heterosexual Gender identity: Female Female Reproductive History Menstrual Age of Menarche: 10 Review of Systems Const Denies chills and Denies fever(s) Card Denies chest pain, Denies dyspnea and Denies dyspnea on exertion Resp Denies cough, Denies dyspnea and Denies dyspnea on exertion GI Denies hematochezia and Denies change in bowel habits Denies hematuria Musc Denies back pain and Denies limited range of motion Neuro Denies focal weakness and Denies convulsions Psych Denies depression and Denies mood swings Physical Exam Vital Signs: Last Vital Signs Pulse 80 02/17/24 10:49 BP 141/74 H 02/17/24 10:49 BMI result Body Mass Index 26.0 Const General: comfortable and no acute distress Orientation/consciousness: patient oriented x3 Neck Neck: Yes no lymphadenopathy Resp Auscultation: clear to auscultation bilaterally Cardio Rhythm: regular rhythm GI Other: rectal exam shows external hemorrhoids on the left and right side Palpation (GI): Soft to palpation, nontender and no guarding Neuro General: patient oriented x3 Office Procedures Anoscopy she was in antonia-knife position. The anoscope was gently inserted. A full examination of the anal canal was done. She does have non bulky hemorrhoidal columns on both the left and right side, a mix of internal and external . There were no other lesions. There was no fissure ulceration. There was no induration on digital exam. There was no bleeding. [id number] Assessment & Plan Assessment & Plan (1) Bleeding hemorrhoids: Code(s): K64.9 - Unspecified hemorrhoids Category: Medical Plan: She describes occasional passage of bright blood per rectum seen on wiping. She says that this is not frequent. She describes perianal itching as well with her hemorrhoids. I explained to her that her hemorrhoids are not bulky at all. I did explained the option of hemorrhoidectomy for severe symptoms. I discussed the technique of this procedure as well as the risks, benefits, and alternatives. She does state that she does not feel her symptoms are severe and wants to hold off on hemorrhoidectomy. She says she did want to have an ointment for perianal itching. I will prescribe her Calmoseptine. She can follow up with me on a p.r.n. basis. Coding Level of Care Code New Pt Level 3 (31879) Diagnoses Bleeding hemorrhoids K64.9 CPT Codes Details - CPT: 89101-Fduispfn ([id number])
[2024-02-17 10:49] VITALS: BP 141/74; PULSE 80; BMI 26.0
== END 2024-02-17 11:04 | disposition home or self-care (01) ==
PROVIDERS: PCP Family Medicine; Referring Provider Family Medicine; Visit Provider Surgery
DX: K64.9 Unspecified hemorrhoids (principal)
CPT/HCPCS: 46600; 99203

== ENCOUNTER → 2024-02-17 10:18 | Outpatient (BNVA) | payer MEDICAID, SELFPAY | PROVIDERS: PCP Family Medicine; Visit Provider Surgery | DX: K64.9 Unspecified hemorrhoids (principal) | CPT/HCPCS: 46600; 99202 ==

== ENCOUNTER 2024-06-27 10:39 | Outpatient (AMB) | payer MEDICAID, SELFPAY ==
[2024-06-27 11:03] VITALS: BP 110/70; BMI 25.3
--- NOTE | 2024-06-27 11:03 | A.OFFVIS_ITS ---
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 But she had been on the Depo for a very long time and she was told that it would be best to stop it because it was affecting her bones. She says she eats well and she does exercise at a women's gym and she gets enough calcium in her diet. She currently has no symptoms today though she did some that her clean-catch urine test which would we will send. She says she has not seen her primary care provider in years the here she is at the [facility]. She had her tubes tied so she does not need a hormonal method of control she says her periods can be very heavy on the 2nd day but they only last 3 days for max. She says before when she has been tested in seen at the time that she has the ?? cuts she has been told problem was using panty liners and pads. PFSH Medical History Bleeding hemorrhoids Asthma Family history of ovarian cancer Family history of breast cancer Hx of lipoma Surgical History History of hernia surgery H/O tubal ligation Family History Paternal Aunt Hx of breast cancer Hx of ovarian cancer Maternal Aunt History of uterine cancer Father History of prostate cancer Paternal Grandmother History of colon cancer Paternal Uncle History of prostate cancer Social History Alcohol intake: never Sexual orientation: Straight/Heterosexual Gender identity: Female Female Reproductive History Menstrual Age of Menarche: 10 Duration of menses: 3-5 days Date of last menstrual period: 06/08/24 control method: none Total pregnancies: 3 Full term: 3 Date of last pap smear: 03/05/22 (negative,previous pap 2020 +hpv) Physical Exam Vital Signs: Last Vital Signs BP 110/70 06/27/24 11:03 BMI result Body Mass Index 25.3 Const General: healthy appearing, comfortable, no acute distress, well developed and alert Nutritional Appearance: average body habitus Orientation/consciousness: patient oriented x3 Limitations: no limitations HEENT Head: Yes normocephalic Neck Neck: Yes normal visual inspection Chest Chest palpation & inspection: normal inspection of the chest Breast/axilla inspection: normal inspection of the breasts and normal inspection of the axillae Breast/axilla palpation: normal palpation of the breasts and normal palpation of the axillae Resp Effort & Inspection: normal respiratory effort GI Inspection: Yes normal to inspection, No Abdominal wall edema and No distended Palpation (GI): Soft to palpation and nontender Other: Completely within normal lesions or irritation all. Vagina and cervix multiparous healthy appearing scant clear mucus uterus midposition to anteverted mobile nontender adnexa nontender good tone with Kegel General: Yes bladder normal to palpation External Female Exam: normal external appearance and normal appearance of the urethra Speculum Exam - Vagina: normal appearance of the vagina, normal palpation and normal vaginal discharge Speculum Exam - Cervix: normal appearance of the cervix, normal palpation and nontender Bimanual exam- vagina & uterus: normal bimanual exam, normal palpation, uterine size normal, bladder normal to palpation, consistency normal, normal palpation, uterine mobility normal, uterine shape normal, No Cervical tenderness present, non-tender and no cervical motion tenderness Bimanual Exam- Adnexa, other: normal adnexae, no masses, normal and No adnexal tenderness Neuro General: patient oriented x3 Results Reviewed Results Reviewed: Irish Luke G Age/Sex: 37/F Attending: Araceli Valdivia CNM : 1985 Submitted by: Araceli Valdivia CNM Copies to: Suzy Mabry MD MR #: [id number] Status: DEP REF Collected: 02/28/22 Location: .LAB Received: 03/05/22 Interpretation Satisfactory for evaluation. Negative for intraepithelial lesion or malignancy. HPV mRNA E6/E7: NOT DETECTED This assay detects E6/E7 viral messenger RNA (mRNA) from 14 high-risk HPV types (16, 18, 31, 33, 35, 39, 45, 51, 52, 56, 58, 59, 66, 68) HPV testing performed by [facility], [place], [place]. See reference laboratory pion of the EMR for entire report. Clinical Information LMP: Paxtono prove Previous PAP test: 07/17/2020, HPV+ Material Received ThinPrep-Cervical Copies To Araceli Valdivia CNM [address] [place] [address] Dr. Lockhart [address] [place] [id number] Suzy Mabry MD [address] [place] [id number] Electronically Signed By: BRONSON Soto (ASCP) 03/21/22 1523 The Pap Test is a screening procedure with the inherent possibility of both false negative and false positive results. Results should be interpreted in the context of historic and current clinical findings. Reliability of the Pap Test is enhanced by performing the test on a regular repetitive basis. Patient: Irish Pope Age/Sex: 37/F MR#: [id number] Page 1 of 1 hipolito: Irish Pope Specimen #: [id number] Age/Sex: 35/F Attending: Karo Donahue MD : 1985 Submitted by: Karo Donahue MD Collected: 07/13/20 MR #: [id number] Received: 07/17/20 Status: [facility] REF Location: .LAB Interpretation Satisfactory for evaluation. Negative for intraepithelial lesion or malignancy. HPV mRNA E6/E7: Not Detected This assay detects E6/E7 viral messenger RNA (mRNA) from 14 high-risk HPV types (16, 18, 31, 33, 35, 39, 45, 51, 52, 56, 58, 59, 66, 68) HPV testing performed by [facility], [place], [place]. See reference laboratory portion of the EMR for entire report. Clinical Information LMP: 07/06/20 Previous PAP test: Unknown date, Abnormal Other history: HPV positive, On depo Material Received ThinPrep-Cervical Electronically Signed By: BRONSON Soto (ASCP) 08/27/20 0931 The Pap Test is a screening procedure with the inherent possibility of both false negative and false positive results. Results should be interpreted in the context of historic and current clinical findings. Reliability of the Pap Test is enhanced by performing the test on a regular repetitive basis. Patient: Enoch Page 1 of 1 Assessment & Plan Assessment & Plan (1) Well woman exam with routine gynecological exam: Code(s): Z01.419 - Encounter for gynecological examination (general) (routine) without abnormal findings Category: Medical (2) Cervical cancer screening: Comment: pt states hx of hpv.; Pap done is 02/28/2022 equals negative with negative HPV. 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 But she had been on the Depo for a very long time and she was told that it would be best to stop it because it was affecting her bones. She says she eats well and she does exercise at a women's gym and she gets enough calcium in her diet. She currently has no symptoms today though she did some that her clean-catch urine test which would we will send. She says she has not seen her primary care provider in years the here she is at the [facility]. She had her tubes tied so she does not need a hormonal method of control she says her periods can be very heavy on the 2nd day but they only last 3 days for max. She says before when she has been tested in seen at the time that she has the ?? cuts she has been told problem was using panty liners and pads. Discussed that if it were something else we would need to see her at the very moment that the cut like lesions or there so we can be sure that they do not appear herpetic and that will be the only way to test, and also I corrected this information she had about getting screened for herpes all the time ??, as that is not what commonly is included in STI blood work testing however she may have it today request. We will send UA C&S and see there is anything to treat there testing done today for GC chlamydia trich BV and yeast though it appears completely within normal. Recommend no panty liner use and limited pad use then the maybe the source of the issues she says that is what she was told before She will start mammograms next year when she turns 40.. Orders: Orders CT NG by PCR Today N94.89 - Other specified conditions associated with female genital organs and menstrual cycle, Z20.2 - Contact with and (suspected) exposure to infections with a predominantly sexual mode of transmission Bacterial Vaginosis Panel Today N89.8 - Other specified noninflammatory disorders of vagina Urine Culture Today N94.89 - Other specified conditions associated with female genital organs and menstrual cycle Hepatitis B Surface Antigen Today Z01.419 - Encounter for gynecological examination (general) (routine) without abnormal findings, Z11.3 - Encounter for screening for infections with a predominantly sexual mode of transmission, Z12.4 - Encounter for screening for malignant neoplasm of cervix Hepatitis C Antibody Today Z01.419 - Encounter for gynecological examination (general) (routine) without abnormal findings, Z11.3 - Encounter for screening for infections with a predominantly sexual mode of transmission, Z12.4 - Encounter for screening for malignant neoplasm of cervix HIV Ab/Ag Today [id number] - Encounter for gynecological examination (general) (routine) without abnormal findings, Z11.3 - Encounter for screening for infections with a predominantly sexual mode of transmission, Z12.4 - Encounter for screening for malignant neoplasm of cervix Syphilis Screen Today Z01.419 - Encounter for gynecological examination (general) (routine) without abnormal findings, Z11.3 - Encounter for screening for infections with a predominantly sexual mode of transmission, Z12.4 - Encounter for screening for malignant neoplasm of cervix Coding Level of Care Code Est Pt Prev Care 18-39y(87301) Diagnoses Well woman exam with routine gynecological exam Z01.419 Cervical cancer screening Z12.4 Encounter for screening examination for sexually transmitted disease Z11.3
== END 2024-06-27 12:12 | disposition home or self-care (01) ==
PROVIDERS: PCP Family Medicine; Visit Provider Advanced Practice Midwife
DX: Z01.419 Encounter for gynecological examination (general) (routine) without abnormal findings (principal); Z12.4 Encounter for screening for malignant neoplasm of cervix; Z11.3 Encounter for screening for infections with a predominantly sexual mode of transmission
CPT/HCPCS: 99395

== ENCOUNTER 2024-06-27 10:39 | Outpatient (REF) | payer MEDICAID, SELFPAY ==
[2024-06-28 11:38] LABS: Bacterial Vaginosis PCR NEGATIVE (Negative); Candida Group PCR NOT DETECTED (Not Detect); Candida glab krusei PCR NOT DETECTED (Not Detect); Trichomonas vaginalis PCR NOT DETECTED (Not Detect)
[2024-06-28 12:09] LABS: CT PCR NOT DETECTED (Not Detect.); NG PCR NOT DETECTED (Not Detect.)
== END 2024-06-27 10:40 | disposition home or self-care (01) ==
LOC: HO.LAB 10:39
PROVIDERS: PCP Family Medicine; Visit Provider Advanced Practice Midwife
DX: Z01.419 Encounter for gynecological examination (general) (routine) without abnormal findings (principal); N94.89 Other specified conditions associated with female genital organs and menstrual cycle; N89.8 Other specified noninflammatory disorders of vagina; Z20.2 Contact with and (suspected) exposure to infections with a predominantly sexual mode of transmission; Z11.3 Encounter for screening for infections with a predominantly sexual mode of transmission
CPT/HCPCS: 0352U; 87086; 87088; 87186; 87491; 87591; 99395

== ENCOUNTER 2024-06-27 12:45 | Outpatient (REF) | payer MEDICAID, SELFPAY ==
[2024-06-28 08:24] LABS: HBsAGNum1 0.47 S/CO (0.00-0.99); HIV AB/AG Nonreactive (Nonreactive); HIV Num 1 0.04 S/CO (0.00-0.99); Hepatitis B Surface Antigen Negative (Negative); ~HepC Num1 0.16 S/CO (0.00-0.79); ~Hepatitis C Antibody Nonreactive (Nonreactive)
[2024-06-28 08:36] LABS: Syphilis Screen Nonreactive (Nonreactive)
== END 2024-06-27 12:46 | disposition home or self-care (01) ==
LOC: HO.HHCL 12:45
PROVIDERS: Visit Provider Advanced Practice Midwife
DX: Z01.419 Encounter for gynecological examination (general) (routine) without abnormal findings (principal); Z11.3 Encounter for screening for infections with a predominantly sexual mode of transmission
CPT/HCPCS: 0352U; 36415; 86780; 86803; 87086; 87088; 87186; 87340; 87389; 87491; 87591; 99395

== ENCOUNTER 2024-07-21 14:47 | Outpatient (REF) | payer MEDICAID, SELFPAY ==
[2024-07-21 16:25] LABS: MANUAL DIFF FLAG NO
[2024-07-21 16:33] LABS: Basophils Absolute Auto 0.1 X10*3/uL (0.0-0.2); Basophils Percent Auto 0.7 % (0-2); Eosinophils Absolute Auto 0.1 X10*3/uL (0.0-0.4); Eosinophils Percent Auto 1.4 % (0-4); Hematocrit 35.7 % (37.0-47.0); Hemoglobin 11.8 g/dl (12.0-16.0); Imm Gran Abs Auto 0.03 X10*3/uL (0.00-0.03); Imm Gran Pct Auto 0.3 % (0.0-0.4); Immature Retic Fraction 16.3 % (3.0-15.9); Lymphocytes Absolute Auto 2.5 X10*3/uL (1.2-4.9); Lymphocytes Percent Auto 26.3 % (20-40); Mean Corpuscular HGB Conc 33.1 g/dl (31.0-35.0); Mean Corpuscular Hemoglobin 25.2 pg (27.0-33.0); Mean Corpuscular Volume 76.3 fL (80.0-98.0); Mean Platelet Volume 11.4 fL (9.4-12.3); Monocytes Absolute Auto 0.5 X10*3/uL (0.1-1.2); Monocytes Percent Auto 5.3 % (2-11); Neutrophils Absolute Auto 6.2 x10*3/uL (2.0-8.3); Platelet Count 244 X10*3/uL (160-400); Red Blood Count 4.68 X10*6/uL (4.20-5.50); Red Cell Distribution Width 13.1 % (11.0-16.0); Retic HGB Equivalent 29.1 pg (30.0-35.0); Reticulocyte Percent 1.5 % (0.5-1.8); Reticulocytes Absolute 0.069 X10*6/uL (0.026-0.095); White Blood Count 9.4 X10*3/uL (4.8-10.8)
[2024-07-21 16:52] LABS: Alanine Aminotransferase 10 U/L (0-31); Albumin Level 4.1 g/dL (3.5-5.0); Alkaline Phosphatase 80 U/L (39-117); Anion Gap 9 (12-20); Aspartate Amino Transferase 14 U/L (5-31); Bilirubin Total 0.4 mg/dL (0.0-1.0); Blood Urea Nitrogen 8 mg/dL (9-16); Calcium 9.3 mg/dL (8.4-10.2); Carbon Dioxide 26 mmol/L (22-29); Chloride 107 mmol/L (96-108); Estimated Glomerular Filt Rate > 60; Glucose Random 123 mg/dL (60-115); Iron 65 mcg/dL (30-160); Percent Iron Saturation 22 % (15-50); Potassium 3.3 mmol/L (3.3-5.1); Sodium 139 mmol/L (135-145); Total Iron Binding Capacity 292 mcg/dL (228-428); Total Protein 7.6 g/dL (6.5-8.0); Unsaturated Iron Binding 227 ug/dL
[2024-07-21 17:05] LABS: Parathyroid Hormone Intact 64.4 pg/mL (8.7-77.1)
[2024-07-21 17:08] LABS: Ferritin 26 ng/mL (10-122); TSH reflex Free T4 0.41 uIU/mL (0.32-4.0); Vitamin D 25-OH Total 20.8 ng/mL (>30)
[2024-07-25 13:24] LABS: Hematocrit 37.2 % (35.0-45.0); Hemoglobin 11.8 g/dL (11.7-15.5); MCH 25.3 pg (27.0-33.0); MCV 79.7 fL (80.0-100.0); RBC 4.67 Million/uL (3.80-5.10); RDW 12.7 % (11.0-15.0)
== END 2024-07-21 14:48 | disposition home or self-care (01) ==
LOC: HO.HHCL 14:47
PROVIDERS: Visit Provider Family Medicine
DX: Z86.2 Personal history of diseases of the blood and blood-forming organs and certain disorders involving the immune mechanism (principal); R53.83 Other fatigue; E55.9 Vitamin D deficiency, unspecified; Z83.2 Family history of diseases of the blood and blood-forming organs and certain disorders involving the immune mechanism
CPT/HCPCS: 36415; 80053; 82306; 82728; 83020; 83540; 83970; 84443; 85014; 85018; 85025; 85041; 85045

== ENCOUNTER 2024-08-23 11:54 | Outpatient (AMB) | payer MEDICAID, SELFPAY ==
[2024-08-23 11:55] VITALS: BP 102/74; BMI 25.3
--- NOTE | 2024-08-23 11:55 | MHC.OFFVIS ---
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 She stopped Depo because she thought it is attributed to her chronic vaginitis conditions. History of tubal ligation. She had stopped per Provera for awhile and discuss her concerns at her last annual and was told she had been using Depo for too long there was a concern for her bone density. At that time she was also bleeding for over a month. Labs 07/21/2024 hemoglobin was 11.8, TSH 0.41. 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 She also reports she has decreased desire. [facility] Medical History Bleeding hemorrhoids Asthma Family history of ovarian cancer Family history of breast cancer Hx of lipoma Surgical History History of hernia surgery H/O tubal ligation Family History Paternal Aunt Hx of breast cancer Hx of ovarian cancer Maternal Aunt History of uterine cancer Father History of prostate cancer Paternal Grandmother History of colon cancer Paternal Uncle History of prostate cancer Social History Alcohol intake: never Sexual orientation: Straight/Heterosexual Gender identity: Female Female Reproductive History Menstrual Age of Menarche: 10 control method: progesterone injection and permanent sterilization Total pregnancies: 3 Full term: 3 Number of Living Children: 3 Date of last pap smear: 03/05/22 History of abnormal pap smear: No History of STI: No Review of Systems Const All systems reviewed & are unremarkable except as noted in HPI and below Endo Reports no additional complaints Physical Exam Vital Signs: Last Vital Signs BP 102/74 08/23/24 11:55 BMI result Body Mass Index 25.3 Const General: cooperative, healthy appearing and no acute distress Psych Appearance: well kempt Attitude: cooperative Thought process: Normal thought process present Assessment & Plan Assessment & Plan (1) Uterine fibroid: Code(s): D25.9 - Leiomyoma of uterus, unspecified Category: Medical Qualifiers: Uterine leiomyoma location: unspecified location Qualified Code(s): D25.9 - Leiomyoma of uterus, unspecified (2) Abnormal uterine bleeding: Code(s): N93.9 - Abnormal uterine and vaginal bleeding, unspecified Plan Discussed: Workup for AUB to include pelvic ultrasound, recent GC chlamydia BV panel were all negative. Counseled regarding endometrial biopsy and pre biopsy anticipatory guidance. Discussed Depo-Provera use and other forms of contraception for cycle control along with her libido concerns at future visit. All of her questions and concerns were addressed to the best of my ability and shared decision making. She is agreeable to the plan of care. This note is constructed using voice recognition software. While every effort has been made to ensure accuracy, college and career counselor errors may have been included. Orders: Orders US pelvic and transvaginal Today D25.9 - Leiomyoma of uterus, unspecified, N93.9 - Abnormal uterine and vaginal bleeding, unspecified MM tomosynthesis screening BI Today Z12.31 - Encounter for screening mammogram for malignant neoplasm of breast Coding Level of Care Code Est Pt Level 3 (05947) Diagnoses Uterine leiomyoma, unspecified location D25.9 Uterine leiomyoma location: unspecified location Abnormal uterine bleeding N93.9
== END 2024-08-23 12:21 | disposition home or self-care (01) ==
LOC: HO.HWS 11:54
PROVIDERS: PCP Family Medicine; Visit Provider Advanced Practice Midwife
DX: D25.9 Leiomyoma of uterus, unspecified (principal); N93.9 Abnormal uterine and vaginal bleeding, unspecified
CPT/HCPCS: 99213

== ENCOUNTER → 2024-08-23 11:54 | Outpatient (BNVA) | payer MEDICAID, SELFPAY | PROVIDERS: PCP Family Medicine; Visit Provider Advanced Practice Midwife | DX: D25.9 Leiomyoma of uterus, unspecified (principal); N93.9 Abnormal uterine and vaginal bleeding, unspecified | CPT/HCPCS: 99212 ==

== ENCOUNTER 2024-09-07 11:07 | Outpatient (REF) | payer MEDICAID, SELFPAY | END 2024-09-07 11:08 | disposition home or self-care (01) | LOC: HO.US 11:07 | PROVIDERS: PCP Family Medicine; Visit Provider Advanced Practice Midwife | DX: D25.9 Leiomyoma of uterus, unspecified (principal); N93.9 Abnormal uterine and vaginal bleeding, unspecified | CPT/HCPCS: 76830; 76856 ==

== ENCOUNTER 2024-11-09 10:38 | Outpatient (REF) | payer MEDICAID, SELFPAY ==
--- OUTSIDE RECORDS SUMMARY | 2024-11-09 12:39 | XMS_ITS | Encounter Summary ---
Author Organization [facility] Address [address] [place] [address] Care Team Providers Care Child Care Director Name Role Phone Suzy Mabry MD Primary Care Provider [phone] Encounter Details Date Type Department Care Team (Late st Contact Info) Description 07/06/2023 Abstract [facility] MEDICINE [address] [place] [address] Apple Fuller Social History Tobacco Use Types Packs/Day Years Used Date Smoking Tobacco: Never Passive Smoke Exposure: Never Smokeless Tobacco: Never Alcohol Use Standard Drinks/Week Comments Not Currently 0 (1 standard drink = 0.6 oz pur e alcohol) Depression Answer Date Recorded Patient Health Questionnaire-9 Score 0 04/09/2023 Depression Answer Date Recorded Patient Health Questionnaire-2 Score 0 04/09/2023 Comments Unknown Sex and Gender Information Value Date Recorded Sex Assigned at Female 08/04/2022 10:20 AM EDT Legal Sex Female 10:20 AM EDT Gender Identity Female 02/20/2023 11:14 AM EDT Sexual Orientation Don't know 02/20/2023 11 :14 AM EDT documented as of this encounter Plan of Treatment Not on file documented as of this encounter Procedures Procedure Name Priority Date/Time Associated Diagnosis Comments PAP/HPV Routine 02/28/2022 PAP/HPV Routine 07/13/2020 documented in this encounter Results * Pap Smear (02/28/2022) Pap Negative for intraephithelial lesion or malignancy Negative for intraephithelial lesion or malignancy, Other HPV Undetected Historical Provider HEALTH MAINTENANCE Final Result * Pap Smear (07/13/2020) Pap Negative for intraephithelial lesion or malignancy Negative for intraephithelial lesion or malignancy, Other HPV Undetected Historical Provider HEALTH MAINTENANCE Edited Result - Final documented in this encounter Visit Diagnoses Not on filedocumented in this encounter Additional Health Concerns Assessment Noted Time PHQ-9 Depression Total Score: 0 04/09/20 23 11:11 AM EDT documented as of this encounter Care Teams Child Care Director Relationship Specialty Start Date End Date Suzy Mabry MD [address] [place] [id number] PCP - General Family Medicine 10/05/18 documented as of this encounter
--- OUTSIDE RECORDS SUMMARY | 2024-11-09 12:39 | XMS_ITS | Encounter Summary ---
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 Name Role Phone Rigoberto Carias MD Primary Care Provider [phone] Encounter Details Date Type Department Care Team (Late st Contact Info) Description 11/05/2011 Documentation [facility] [place] [address] [place] [address] Family Medicine, Physician [address] [place] [address] Social History Tobacco Use Types Packs/Day Years Used Date Smoking Tobacco: Never Assessed Comments Unknown Sex and Gender Information Value Date Recorded Sex Assigned at Not on file Legal Sex Female 4:40 PM EDT Gender Identity Not on file Sexual Orientation Not on file documented as of this encounter Plan of Treatment Not on file documented as of this encounter Visit Diagnoses Not on filedocumented in this encounter Care Teams Flash Welding Machine Operator Relationship Specialty Start Date End Date Rigoberto Carias MD [address] [facility] [place] [address] PCP - General 05/15/17 03/11/23 documented as of this encounter
--- OUTSIDE RECORDS SUMMARY | 2024-11-09 12:39 | XMS_ITS | Encounter Summary ---
Author Organization [employer] Address [address] [place] [address] Care Team Providers Care Color Dipper Name Role Phone Suzy Mabry MD Primary Care Provider [phone] Reason for Referral * Consultation (Routine) - Closed Specialty Diagnoses / Procedures Referred By Contac t Referred To Contact Optometry Diagnoses Visual impairment Suzy Mabry MD [address] [place] [address] Phone: tel: fax: [facility] OPTOMETRY [address] [place] [address] Phone: tel: fax: Referral ID Status Reason Start Date Expiration Date V isits Requested Visits Authorized [id number] Closed Consult and Treat 08/02/2024 08/02/2025 1 1 Encounter Details Date Type Department Care Team (Late st Contact Info) Description 07/26/2024 Orders Only [facility] MEDICINE [address] [place] [phone] Suzy Mabry MD [address], [place] [id number] Visual impairment (Primary Dx) Social History Tobacco Use Types Packs/Day Years Used Date Smoking Tobacco: Never Passive Smoke Exposure: Never Smokeless Tobacco: Never Alcohol Use Standard Drinks/Week Comments Not Currently 0 (1 standard drink = 0.6 oz pur e alcohol) Alcohol Answer Date Recorded Frequency of Alcohol Consumption Not on file 07/21/2024 Average Number of Drinks Not on file 024 Frequency of Binge Drinking Not on file 07/05 Score 0 07/21/2024 Depression Answer Date Recorded Patient Health Questionnaire-9 Score 0 04/09/2023 Housing Stability Answer Date Recorded What is your housing situation today? I have francie ordoñez 08/03/[address] you li ve. Do you have problems with any of the following? None of the above 08/03/2023 Food Insecurity Answer Date Recorded Within the past 12 months, y ou worried that your food would run out before you got money to buy more: Never True 08/03/2023 Within the past 12 months,th e food you bought just didn't last and you didn't have enough money to get more: Never True Transportation Answer Date Recorded In the past 12 months, has l ack of transportation kept you from medical appts, meetings, work or from getting things needed for daily living? No 08/03/2023 Utilities Answer Date Recorded In the past 12 months, has t he electric, gas, oil or water company threatened to shut off services in your home? No 08/03/2023 Depression Answer Date Recorded Patient Health Questionnaire-2 Score 0 04/09/2023 Comments Unknown Sex and Gender Information Value Date Recorded Sex Assigned at Female 08/04/2022 10:20 AM EDT Legal Sex Female 10:20 AM EDT Gender Identity Female 02/20/2023 11:14 AM EDT Sexual Orientation Don't know 02/20/2023 11 :14 AM EDT documented as of this encounter Plan of Treatment Scheduled Referrals Name Type Priority Associated Diagnoses Orde r Schedule Referral to [facility] Eye Care Outpatient Referral Routine Visual impairment Expected: 08/02/2024 (Approximate), Expires: 08/02/2025 documented as of this encounter Visit Diagnoses Diagnosis Visual impairment- Primary Unspecified visual loss documented in this encounter Additional Health Concerns Assessment Noted Time PHQ-9 Depression Total Score: 0 04/09/20 23 11:11 AM EDT documented as of this encounter Care Teams Color Dipper Relationship Specialty Start Date End Date Suzy Mabry MD [address] [place] [address] PCP - General Family Medicine 10/05/18 documented as of this encounter
--- OUTSIDE RECORDS SUMMARY | 2024-11-09 12:39 | XMS_ITS | Encounter Summary ---
Author Organization [employer] Address [address] [place] [address] Care Team Providers Care Vp Production Name Role Phone Suzy Mabry MD Primary Care Provider [phone] Encounter Details Date Type Department Care Team (Late st Contact Info) Description 09/07/2024 Orders Only [facility] External Provider, [facility] Social History Tobacco Use Types Packs/Day Years [...] Procedure Name Priority Date/Time Associated Diagnosis Comments US PELVIS TRANSVAGINAL Routine 09/07/2024 11:15 AM EST documented in this encounter Results * US Pelvis Transvaginal (09/07/2024 11:15 AM EST) Anatomical Region Laterality Modality Pelvis Ultrasound 09/07/2024 11:1 5 AM EST Narrative 10/23/2024 11:57 AM EST ? [facility] ?[address] ?[place] [address] ? Ultrasound Report ? Signed ? Patient: Irish Pope ?MR#: ?? [id number] ? : 1985 ?Acct:[id number] ? Age/Sex: 39 / F ?ADM Date: 09/07/24 ? Loc: HO.US ? Attending Dr: Chantelle Bernal CNM ? Ordering Physician: Chantelle Bernal CNM ?? Date of Service: 09/07/24 ?? Procedure(s): US pelvic and transvaginal ?? Accession Number(s): [id number] ? cc: Chantelle Bernal CNM; Suzy Mabry MD ? EXAMINATION: ? US PELVIS ? CLINICAL INFORMATION: ? Leiomyoma, last menstrual period is due any day. ? COMPARISON: ?? 10/15/2023. ? TECHNIQUE: ?? Ultrasound of the pelvis is performed using both transabdominal and ?? transvaginal transducers along with Doppler. Transvaginal imaging is ?? performed due to inadequate visualization transabdominally. ? FINDINGS: ?? Anteverted uterus measures 10.4 x 4.5 x 5.4 cm. Previously identified ?? 0.4 cm fibroid not identified on the current exam. Heterogeneous ?? uterine echotexture. ? No significant free fluid. ? Endometrial thickness is 12 mm. A 7 x 6 x 7 mm complex cystic ?? collection with echogenic wall is identified within the endometrium and ?? was not identified on the prior study. ? No significant free fluid. ? Right ovary measures 2.5 x 1.4 x 1.7 cm, volume 3.1 mL. ? Left ovary measures 2.7 x 1.8 x 1.6 cm, volume 4.1 mL. ? No significant free fluid. ? US/US pelvic and transvaginal ?? IMPRESSION: ?? 1. Previously identified 0.4 cm fibroid not identified on the current ?? exam. Heterogeneous uterine echotexture. ? 2. Endometrial thickness is 12 mm. A 7 x 6 x 7 mm complex cystic ?? collection with echogenic wall is identified within the endometrium and ?? was not identified on the prior study. ? 3. Gynecologic consultation recommended to determine further management ?? including possible biopsy. Recommend followup ultrasound in 6-8 weeks. ? Electronically signed by: ??Tory Escobar MD ??10/23/2024 11:54 AM EST ? Dictated By: ?Tory Escobar MD ? Signed By: ?<Electronically signed by Tory Escobar MD in OV> ? 10/23/24 1154 ? DD/ 1115 ? TD/TT: 09/07/24 1145 ? Figure Clerk: ? Procedure Note Sylwiater, Image - 10/23/[address] [address] Ultrasound Report Signed Patient: Irish Pope R#: [id number] : 1985Acct:[id number] Age/Sex: 39 / FADM Date: 09/07/24 Loc: HO. Attending Dr: Chantelle Bernal CNM Ordering Physician: Chantelle Bernal CNM Date of Service: 09/07/24 Procedure(s): US pelvic and transvaginal Accession Number(s): [id number] cc: Chantelle Bernal CNM; Suzy Mabry MD EXAMINATION: US PELVIS CLINICAL INFORMATION: Leiomyoma, last menstrual period is due any day. COMPARISON: 10/15/2023. TECHNIQUE: Ultrasound of the pelvis is performed using both transabdominal and transvaginal transducers along with Doppler. Transvaginal imaging is performed due to inadequate visualization transabdominally. FINDINGS: Anteverted uterus measures 10.4 x 4.5 x 5.4 cm. Previously identified 0.4 cm fibroid not identified on the current exam. Heterogeneous uterine echotexture. No significant free fluid. Endometrial thickness is 12 mm. A 7 x 6 x 7 mm complex cystic collection with echogenic wall is identified within the endometrium and was not identified on the prior study. No significant free fluid. Right ovary measures 2.5 x 1.4 x 1.7 cm, volume 3.1 mL. Left ovary measures 2.7 x 1.8 x 1.6 cm, volume 4.1 mL. No significant free fluid. US/US pelvic and transvaginal IMPRESSION: 1. Previously identified 0.4 cm fibroid not identified on the current exam. Heterogeneous uterine echotexture. 2. Endometrial thickness is 12 mm. A 7 x 6 x 7 mm complex cystic collection with echogenic wall is identified within the endometrium and was not identified on the prior study. 3. Gynecologic consultation recommended to determine further management including possible biopsy. Recommend followup ultrasound in 6-8 weeks. Electronically signed by: Tory Escobar MD 10/23/2024 11:54 AM [facility] Dictated By: Tory Escobar MD Signed By: <Electronically signed by Tory Escobar MD in OV> 10/23/24 1154 DD/ 1115 TD/TT: 09/07/24 1145 Figure Clerk: [facility] External Provider IMG US PROCEDURES Edited Result - Final documented in this encounter Visit Diagnoses Not on filedocumented in this encounter Additional Health Concerns Assessment Noted Time PHQ-9 Depression Total Score: 0 04/09/20 23 11:11 AM EDT documented as of this encounter Care Teams Vp Production Relationship Specialty Start Date End Date Suzy Mabry MD [address] [place] [address] PCP - General Family Medicine 10/05/18 documented as of this encounter
--- OUTSIDE RECORDS SUMMARY | 2024-11-09 12:39 | XMS_ITS | Encounter Summary ---
Author Organization [employer] Address [address] [facility] [address] [place] [address] Care Team Providers Care Pediatric Physical Therapy Assistant Name Role Phone Suzy Mabry MD Primary Care Provider [phone] Encounter Details Date Type Department Care Team (Late st Contact Info) Description 04/16/2023 Orders Only [facility] MEDICINE [address] [place], [place] [phone] Suzy Mabry MD [address] [place], [place] [phone] Social History Tobacco Use Types Packs/Day Years [...] Don't know 02/20/2023 11 :14 AM EDT COVID-19 Exposure Response Date Recorded In the last 10 days, have yo u been in contact with someone who was confirmed or suspected to have Coronavirus/COVID-19? No / Unsure 04/09/2023 11:01 AM EDT documented as of this encounter Plan of Treatment Not on file documented as of this encounter Visit Diagnoses Not on filedocumented in this encounter Additional Health Concerns Assessment Noted Time PHQ-9 Depression Total Score: 0 04/09/20 23 11:11 AM EDT documented as of this encounter Care Teams Pediatric Physical Therapy Assistant Relationship Specialty Start Date End Date Suzy Mabry MD [address] [place] [address] PCP - General Family Medicine 10/05/18 documented as of this encounter
--- OUTSIDE RECORDS SUMMARY | 2024-11-09 12:39 | XMS_ITS | Encounter Summary ---
Author Organization [employer] Address [address] [facility] [address] [place] [address] Care Team Providers Care Linter Drier Operator Name Role Phone Suzy Mabry MD Primary Care Provider [phone] Reason for Referral * Consultation (Urgent) - Closed Specialty Diagnoses / Procedures Referred By Contjamila t Referred To Contact Obstetrics and Gynecology Diagnoses Encounter for well woman exam with routine gynecological exam Pelvic pain Suzy Mabry MD [address] [place] [phone] Phone: tel: fax: [facility] Referral ID Status Reason Start Date Expiration Date V isits Requested Visits Authorized [id number] Closed Specialty Services Required 06/27/2024 06/27/2025 9 9 Encounter Details Date Type Department Care Team (Late st Contact Info) Description 06/28/2024 Orders Only [facility] MEDICINE [address] [place] [address] [phone] Suzy Mabry MD [address] [place], [place] [phone] Encounter for well woman exam with routine gynecological exam (Primary Dx); Pelvic pain; Nonintractable headache, unspecified chronicity pattern, unspecified headache type; History of anemia Social History Tobacco Use Types Packs/Day Years [...] Associated Diagnoses Orde r Schedule Referral to Obstetrics / Gynecology Outpatient Referral Urgent Encounter for well woman exam with routine gynecological exam Pelvic pain Expected: 06/28/2024 (Approximate), Expires: 06/28/2025 documented as of this encounter Procedures Procedure Name Priority Date/Time Associated Diagnosis Comments CBC WITH AUTO DIFFERENTIAL Routine 07/21/2024 2:50 PM EDT History of anemia IRON AND TOTAL IRON BINDING CAPACITY Routine 07/21/2024 2:50 PM EDT History of anemia RETICULOCYTE COUNT Routine 07/21/2024 2: 50 PM EDT History of anemia FERRITIN Routine 07/21/2024 2:50 PM EDT History of anemia documented in this encounter Results * (ABNORMAL) Reticulocyte Count (07/21/2024 2:50 PM EDT) Reticulocytes Absolute 0.069 0.026 - 0.095 X10*6/uL [facility] Immature Retic Fraction 16.3(H) 3.0 - 15.9 % [facility] Retic HGB Equivalent 29.1(L) 30.0 - 35.0 pg [facility] Reticulocyte Percent 1.5 0.5 - 1.8 % [facility] Blood Venous blood specimen / Unknown 07/21/2024 2:50 PM EDT 07/21/2024 4:18 PM EDT Suzy Mabry MD LAB BLOOD ORDERABLES Final Resul t Performing Organization Address [facility] Co de Phone Number [facility] [address] [place] [phone] * Iron And Total Iron Binding Capacity (07/21/2024 2:50 PM EDT) Iron 65 30 - 160 mcg/dL [facility] Total Iron Binding Capacity 292 228 - 428 mcg/dL [facility] Percent Iron Saturation 22 15 - 50 % [facility] Unsaturated Iron Binding 227 ug/dL [facility] Blood Venous blood specimen / Unknown 07/21/2024 2:50 PM EDT 07/21/2024 4:18 PM EDT Suzy Mabry MD LAB BLOOD ORDERABLES Final Resul t Performing Organization Address [facility] Co de Phone Number [facility] [address] [place] [phone] * Ferritin (07/21/2024 2:50 PM EDT) Ferritin 26 10 - 122 ng/mL [facility] Blood Venous blood specimen / Unknown 07/21/2024 2:50 PM EDT 07/21/2024 4:18 PM EDT us Suzy Mabry MD LAB BLOOD ORDERABLES Final Resul t [facility] [address] [place] [phone] * (ABNORMAL) CBC auto differential (07/21/2024 2:50 PM EDT) White Blood Count 9.4 4.8 - 10.8 X10*3/uL [facility] Red Blood Count 4.68 4.20 - 5.50 X10*6/uL [facility] Hemoglobin 11.8(L) 12.0 - 16.0 g/dl [facility] Hematocrit 35.7(L) 37.0 - 47.0 % [facility] Mean Corpuscular Volume 76.3(L) 80.0 - 98.0 fL [facility] Mean Corpuscular Hemoglobin 25.2(L) 27.0 - 33.0 pg [facility] Mean Corpuscular HGB Conc 33.1 31.0 - 35.0 g/dl [facility] Red Cell Distribution Width 13.1 11.0 - 16.0 % [facility] Platelet Count 244 160 - 400 X10*3/uL [facility] Mean Platelet Volume 11.4 9.4 - 12.3 fL [facility] Neutrophils Percent Auto 66.0 45 - 73 % [facility] Imm Gran Pct Auto 0.3 0.0 - 0.4 % [facility] Lymphocytes Percent Auto 26.3 20 - 40 % [facility] Monocytes Percent Auto 5.3 2 - 11 % [facility] Eosinophils Percent Auto 1.4 0 - 4 % [facility] Basophils Percent Auto 0.7 0 - 2 % [facility] NRBC Pct Auto 0.0 0.0 - 0.2 /100WBC [facility] Neutrophils Absolute Auto 6.2 2.0 - 8.3 x10*3/uL [facility] Imm Gran Abs Auto 0.03 0.00 - 0.03 X10*3/uL [facility] Lymphocytes Absolute Auto 2.5 1.2 - 4.9 X10*3/uL [facility] Monocytes Absolute Auto 0.5 0.1 - 1.2 X10*3/uL [facility] Eosinophils Absolute Auto 0.1 0.0 - 0.4 X10*3/uL [facility] Basophils Absolute Auto 0.1 0.0 - 0.2 X10*3/uL [facility] NRBC Abs Auto 0.000 0.0 - 0.012 X10*3/uL [facility] Blood Venous blood specimen / Unknown 07/21/2024 2:50 PM EDT 07/21/2024 4:18 PM EDT us Suzy Mabry MD LAB BLOOD ORDERABLES Final Resul t Performing Organization Address City/State/[facility] Co de Phone Number [facility] [address] [place] [phone] documented in this encounter Visit Diagnoses Diagnosis Encounter for well woman exam with routine gynecological exam- Primary Pelvic pain Nonintractable headache, unspecified chronicity pattern, unspecified headache type History of anemia Personal history of diseases of blood and blood-forming organs documented in this encounter Additional Health Concerns Assessment Noted Time PHQ-9 Depression Total Score: 0 04/09/20 23 11:11 AM EDT documented as of this encounter Care Teams Linter Drier Operator Relationship Specialty Start Date End Date Suzy Mabry MD [address] [place] [phone] PCP - General Family Medicine 10/05/18 documented as of this encounter
--- OUTSIDE RECORDS SUMMARY | 2024-11-09 12:39 | XMS_ITS | Encounter Summary ---
Author Organization [employer] Address [address] [place] [address] Care Team Providers Care Quantitative Research Analyst Name Role Phone Suzy Mabry MD Primary Care Provider [phone] Reason for Visit * Reason Comments Med Refill Encounter Details Date Type Department Care Team ([facility] st Contact Info) Description 10/15/2024 Refill [facility] MEDICINE [address] [place], [place] [phone] Suzy Mabry MD [address] [place], [place] [phone] Allergic rhinitis, unspecified seasonality, unspecified trigger Social History Tobacco Use Types Packs/Day Years [...] as of this encounter Visit Diagnoses Diagnosis Allergic rhinitis, unspecified seasonality, unspecified trigger documented in this encounter Additional Health Concerns Assessment Noted Time PHQ-9 Depression Total Score: 0 04/09/20 23 11:11 AM EDT documented as of this encounter Care Teams Quantitative Research Analyst Relationship Specialty Start Date End Date Suzy Mabry MD [address] [place] [phone] PCP - General Family Medicine 10/05/18 documented as of this encounter
--- OUTSIDE RECORDS SUMMARY | 2024-11-09 12:39 | XMS_ITS | Encounter Summary ---
Author Organization [employer] Address [address] [facility] [address] [place] [address] Care Team Providers Care Import Dispatcher Name Role Phone Suzy Mabry MD Primary Care Provider [phone] Encounter Details Date Type Department Care Team (Late st Contact Info) Description 05/01/2023 Abstract [facility] MEDICINE [address] [place], [place] [phone] Suzy Mabry MD [address] [place], [place] [phone] Social History Tobacco Use Types Packs/Day Years [...] Noted Time PHQ-9 Depression Total Score: 0 07/06/20 23 11:11 AM EDT documented as of this encounter Care Teams Import Dispatcher Relationship Specialty Start Date End Date Suzy Mabry MD [address] [place] [phone] PCP - General Family Medicine 10/05/18 documented as of this encounter
--- OUTSIDE RECORDS SUMMARY | 2024-11-09 12:40 | XMS_ITS | Continuity of Care Document ---
Author Organization [facility], [facility] Address [address] [place] [address] Care Team Providers Care Parking Patroller Name Role Phone BRANDON JOSEPH Primary Care Provider [phone] Assessment Encounter Date Assessment Date Assessment LastModified by Organization Details LastModified Time 10/18/2024 10/18/2024 Thankfully audiometric testing showed normal hearing. I recommended masking for the tinnitus. She has not yet been contacted about her CT, so I gave her contact information. She can continue allergy regimen. [email or web address] Not available 10/24/2024 04:44:58 Plan of Treatment Reminders Order Date Submit Date Provider Last Modified By Organization Details Last Modified Time Details Appointments None record ed. Lab None record ed. Referral None record ed. Procedures None record ed. Surgeries None record ed. Imaging None record ed. Medication Orders None record ed. Patient TargetsNo targets recorded. Patient InstructionsNo instructions recorded. Reason for Referral None Reported. Results Created Date Observation Date Name Description Value Unit Range Abnormal Flag Note LastModifiedBy Organization Detail LastModifiedTime 10/19/19 25 audio gram No observ ation record ed. BARCODE Not Available 2024 09:38:23 Result Notes None recorded. Problems Name Problem SNOMED Code Status Onset Date Resolution Date Notes Provider Name and Address Organization Details Recorded Time Mild intermitt ent asthma 492217214 Active 2015 Mild intermitt ent asthma, uncomplic ated; Note: Date Diagnosed : 12/07/2015 12:16 PM (J45.20) Not Available [facility] 03:23:42 Allergic rhinitis 38552678 Active 2015 Allergic rhinitis: Due to other allergen; Note: Date Diagnosed : 05/08/2016 4:32 PM (477.8) Other allergic rhinitis; Note: Date Diagnosed : 12/07/2015 12:35 PM (J30.89) ; Start Date : 6 Not Available [facility] 4 03:23:42 Acute upper respirato ry infection 70237943 Active 2015 Upper respirato ry disease, acute; Note: Date Diagnosed : 02/21/2016 11:24 AM (J06.9) Not Available [facility] 4 03:23:42 Hypertrop hy of nasal turbinate s 03175197 Active 2015 Hypertrop hy of nasal turbinate s; Note: Date Diagnosed : 12/07/2015 12:20 PM (J34.3) Not Available [facility] 4 03:23:42 Atypical facial pain 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 - [facility] 4 09:30:36 Deviated nasal septum 041374687 Active 2023 MARYLU BILLS MD [address] [place] [address],[place] [address], [place], [address] , [facility] - [facility] 4 05:49:37 Cyst of maxillary sinus 899391757 Active 2023 MARYLU BILLS MD [address] [place] [address],[place] [address], [place], [address] , [facility] - [facility] 4 05:49:43 Bilateral tinnitus 98954003969 02 Active 2024 Gerardo GARZA [address] [facility],[place] [address], [place], [address] , [facility] - [facility] 5 10:59:05 Problem Notes None recorded. Procedures Surgical History Date Name Laterality Status Provider Name and Address Organization Details Recorded Time 5 Comp Audio with Tymps (06617 & 22549) completed Gerardo GARZA [address], [address], [facility] - [facility] 10/18/2024 10:58:40 JMSNasal/Sinus Endoscopy completed MARYLU BILLS MD [address], [address], [facility] - [facility] 08/11/2024 09:30:24 Imaging Results None recorded. Procedure Notes None recorded. Medical Equipment None Reported. Allergies No known drug allergies Medications Name Sig Start Date Stop Date Status Note LastModified by Organization Details LastModified Time terbinafi ne HCl 1 % topical cream APPLY TO AFFECTED AREA TWICE A DAY 10/18 completed Not Available Not Available Not Available cetirizin e 10 mg tablet TAKE 1 TABLET (10 MG) BY MOUTH ONCE PER DAY. 10/18 completed Not Available Not Available Not Available fexofenad ine 180 mg tablet TAKE 1 TABLET BY MOUTH EVERY DAY 10/18 completed Not Available Not Available Not Available azelastin e 137 mcg (0.1 %) nasal spray 2 spray into both nostrils 10/18 completed Medicati on ID: [id number] P rescribe d By Name: Cristiane Royal nd Name: azelasti ne Send Method: E-Prescr ibed Sub s Allowed: subs OK Medic ationGen ericName : azelasti ne Not Available Not Available Not Available fluticaso ne propionat e 50 mcg/actua tion nasal spray,chidi pension PLEASE SEE ATTACHED FOR DETAILED DIRECTIO NS active Not Available Not Available No t Available medroxypr ogesteron e 150 mg/mL intramusc ular suspensio n INJECT 150 MG INTRAMUS CULARLY EVERY 12 WEEKS 10/18 completed Not Available Not Available Not Available oxymetazo line 0.05 % nasal spray 2 spray 10/18 completed Medicati on ID: [id number] D uration Value: 3 Prescri bed By Name: Cristiane Royal nd Name: oxymetaz oline nd Method: E-Prescr ibed Sub s Allowed: subs OK Speci al Instruct ion: 2 sprays to affected side for noseblee d Medica tionGene ricName: oxymetaz oline Not Available Not Available Not Available nitrofura ntoin monohydra te/macroc rystals 100 mg capsule TAKE 1 CAPSULE BY MOUTH TWICE A DAY 10/18 completed Not Available Not Available Not Available cholecalc iferol (vitamin D3) 25 mcg (1,000 unit) tablet TAKE 1 TABLET (25 MCG) BY MOUTH ONCE PER DAY. 10/18 completed Not Available Not Available Not Available Calmosept ine 0.44 %-20.6 % topical ointment APPLY TO AFFECTED AREA TOPICALL Y 4 TIMES A DAY NEEDED FOR ANAL ITCHING 10/18 completed Not Available Not Available Not Available EpiPen 2-Jermaine 0.3 mg/0.3 mL injection , auto-inje ctor 1 pen injector intramus cularly 10/18 completed Medicati on ID: [id number] D uration Value: 180 Prescri bed By Name: Cristiane Royal nd Name: EpiPen 2-Jermaine Se nd Method: E-Prescr ibed Sub s Allowed: subs OK Medic ationGen ericName : EpiPen 2-Jermaine Not Available Not Available Not Available Vitals Date Recorded Body height Body mass index (BMI) Body weight Provider Name and Address Organization Details Last Updated DateTime 10/18/2024 165.1 cm 25 kg/m2 77906.65 g Selina Griffin [place] - [facility] 10/18/2024 11:08:54 Social History None recorded. Functional Status None recorded. Mental Status None recorded. Family History Nothing Reported Notes:Cancer:. ? Pertinent negatives: lung cancer, thyroid cancer, unknown type of cancer. Ears:. ? Pertinent negatives: hearing loss after age 20, hearing loss before age 20. Cardiovascular: Hypertension - father. ? Pertinent negatives: heart disease. Respiratory: Asthma - mother and brother(s). Neurologic:. ? Pertinent negatives: stroke. Endocrine:. ? Pertinent negatives: diabetes (age at onset unspecified). Hematologic/Lymphatic:. ? Pertinent negatives: bleeding or blood clotting problems. Medical History Condition Response Anxiety Y Migraines Y Depression Y Anemia Y Asthma Y Gynecological HistoryNo gynecological history recorded. Obstetrics History GPAL:G 0 P 0 0 0 0 Past Encounters Encounter ID Performer Location Encounter Start Date Encounter Closed Date Diagnosis/Indication Diagnosis SNOMED-CT Code Diagnosis ICD10 Code Diagnosis Note [id number] MARYLU BILLS MD [facility] on [address] [place] [address] 10/18/2024 10:18:43 10/19/2024 08:30:39 Bilateral tinnitus [id number] 102 H93.13 Audiologic al evaluation results: Right ear: {{Normal* Normal through 2 kHz Mild M oderate Mo derately-s evere Loni re Profoun d}} {{hearing* hearing. sloping to a mild slopi ng to a moderate s loping to moderately severe slo ping to severe slo ping to profound f lat high frequency low frequency mid frequency cookie bite miles curve}} {{with* se nsorineura l hearing loss with condu ctive hearing loss with mixed hearing loss with}} {{excellen t* good fa ir poor no measurable }} word recognitio n. Left ear: {{Normal* Normal through 2 kHz Mild M oderate Mo derately-s evere Loni re Profoun d}} {{hearing* hearing. sloping to a mild slopi ng to a moderate s loping to moderately severe slo ping to severe slo ping to profound f lat high frequency low frequency mid frequency cookie bite miles curve}} {{with* se nsorineura l hearing loss with condu ctive hearing loss with mixed hearing loss with}} {{excellen t* good fa ir poor no measurable }} word recognitio n. Tympanomet ry: Right Ear:{{Type A* Type As Type Ad Type C Type C, shallow & rounded Ty pe B Type B with large volume Cou ld not maintain a hermetic seal}} Left Ear:{{Type A* Type As Type Ad Type C Type C, shallow & rounded Ty pe B Type B with large volume Cou ld not maintain a hermetic seal}} Health Concerns Section Related Observation LastModified by Organization Detai ls LastModified Time None Recorded Concern Status LastModified by Organization Details LastModified Time None Recorded Payers Encounter Date Sequence Insurance Name Policy Number Policy Krishnan Covered Member ID Krishnan Member ID Guarantor Name 10/18/2024 1 MEDICAID-[place]: [facility] Irish Kendall [id number] Irish Kendall Notes Date Note Type Note Provider Name and Address Organization Details Recorded Time 10/18/2024 text/html Did not get imag ing. PV: 39-year-old female presents today for evaluation of nasal cyst and allergies. Taking excedrin for migraines. Does have headache, dizziness, tinnitus No allergy medication now. She had a CT in 2009 showing mild send show nasal septal deviation to the right, 1 cm mucous retention cyst in the inferior posterior left maxillary sinus, and minimal mucosal thickening in the left maxillary sinus. She reports no testing since then. Has 2 dogs at home. [facility] trait PV (2015):. Patient presents for long standing hx of chronic nasal congestion refractory to antihistamines and nasal steroids.Hx of mild asthma, last albuterol use in October. No preventative medications. Allergy testing showed rx to dust, mold, cat grasses, dog, trees, ragweed, andcockroach. She has had minimal improvement with Astelin. MARYLU BILLS MD [address] [place] [address], [address], [facility] - [facility] 10/24/2024 04:45:07 OBGyn Episode No OBEpisode recorded.
--- OUTSIDE RECORDS SUMMARY | 2024-11-09 12:40 | XMS_ITS | Clinical Summary ---
Author Organization [facility] Address [address] [facility] [address] [place] [address] Care Team Providers Care Plumbing Hardware Assembler Name Role Phone Suzy Mabry MD Primary Care Provider [phone] Allergies No known active allergies Medications cetirizine (ZyrTEC) 10 MG tabletIndicatio ns:Allergic rhinitis, unspecified seasonality, unspecified trigger Take 1 tablet (10 mg) by mouth Once per day. 90 tablet 3 07/21/20 24 Active terbinafine (LamISIL AT) 1 % cream Apply topically 2 times daily. 42 g 07/21/20 24 Active cholecalciferol (Vitamin D-3) 25 MCG (1000 UT) tablet Take 1 tablet (25 mcg) by mouth Once per day. 90 tablet 3 07/26/20 24 Active fluticasone (Flonase) 50 MCG/ACT nasal sprayIndication s:Allergic rhinitis, unspecified seasonality, unspecified trigger ADMINISTER 1-2 SPRAYS INTO EACH NOSTRIL ONCE PER DAY. SHAKE GENTLY. BEFORE FIRST USE, PRIME PUMP. AFTER USE, CLEAN TIP AND REPLACE CAP. 48 mL 10/17/19 25 026 Active fluticasone (Flonase) 50 MCG/ACT nasal sprayIndication s:Allergic rhinitis, unspecified seasonality, unspecified trigger Administer 1-2 sprays into each nostril Once per day. Shake gently. Before first use, prime pump. After use, clean tip and replace cap. 16 g 2 07/21/20 24 025 Discontinued Active Problems Problem Noted Date Diagnosed Date Headache 07/21/2024 Assessment & Plan (07/21/2024 12:43 PM EDT): - multifactorial - sinus headache and tension headache, unlikely migraine - will optimize treatment for sinusitis - continue ibuprofen or acetaminophen prn Anemia 07/21/2024 Assessment & Plan (07/21/2024 12:46 PM EDT): - patient has history of iron deficiency anemia and AUB - patient has fibroid and following with blowing weasand - will check anemia and will also check sickle cell trait Neck pain 02/23/2023 Assessment & Plan (02/23/2023 6:33 AM EDT): With muscle spams No neck rigidity or signs of meningitis Will order plain films, pt says this has been a problem for her in the past Heat, massage, muscle relaxer Consider PT after xray returns Asthma 12/19/2016 Allergic rhinitis 12/19/2016 Assessment & Plan (07/21/2024 12:45 PM EDT): - will restart cetrizine and flonase Vitamin D deficiency 06/18/2015 Lipoma of scalp 01/16/2014 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/2013 Assessment & Plan (07/21/2024 12:45 PM EDT): - patient had previous imaging CT scan showing a cyst in the nasal cavity Chronic sinusitis 07/28/2013 Assessment & Plan (07/21/2024 12:44 PM EDT): - will refer her to ENT Encounters Date Type Department Care Team Description 10/15/2024 Refill [facility] [address] [place] [address] Suzy Mabry MD Allergic rhinitis, unspecified seasonality, unspecified trigger 09/07/2024 Orders Only [facility] External Provider, [facility] from Last 3 Months Immunizations Name Administration Dates Next Due DTP 05/04/1999, 7,06/04/1996,1994,12/02/1994 Hep B, Adolescent or Pediatric 03/04/1997,1995,08/04/1996 IPV 05/04/1999, 7,06/04/1996,1994,09/03/1995 Influenza, Split (incl. vivian fied surface antigen) 07/28/2013 MMR 06/04/1996,08/04/1990 Td (adult), 5 Lf tetanus tox oid, preservative free, adsorbed 12/17/1998 Tdap 07/28/2013 Social History Tobacco Use Types Packs/Day Years Used Date Smoking Tobacco: Never Passive Smoke Exposure: Never Smokeless Tobacco: Never Tobacco Cessation:Counseling Given: Not Answered Alcohol Use Standard Drinks/Week Comments Not Currently [...] Don't know 02/20/2023 11 :14 AM EDT Last Filed Vital Signs Vital Sign Reading Time Taken Comments Blood Pressure 130/77 07/21/2024 11:38 AM EDT Pulse 96 07/21/2024 11:38 AM EDT Temperature 36.2 ??C (97.1 ??F) 07/21/2024 11:38 AM E DT Respiratory Rate 19 07/21/2024 11:38 AM EDT Oxygen Saturation 98% 04/09/2023 11:11 AM EDT Inhaled Oxygen Concentration - - Weight 70.5 kg (155 lb 6.4 oz) 07/21/2024 11:38 AM EDT Height 164.1 cm (5' 4.61 ) 07/21/2024 11:38 AM E DT Body Mass Index 26.17 07/21/2024 11:38 AM EDT Plan of Treatment Health Maintenance Due Date Last Done Comments Family Planning (PISQ) 02/07/2000 Pneumococcal Vaccine: Pediatrics (0 to 5 Years) and At-Risk Patients (6 to 49) Years) (1 of 2 - PCV) 02/07/2004 DTaP/Tdap/Td Vaccines (8 - Td or Tdap) 07/28/2023 07/28/2013, 05/04/1999, 12/17/1998, Additional history exists Depression Screening 04/09/2024 04/09/2023, 04/09/20 23 SDOH Screening 04/09/2024 04/09/2023 COVID-19 Vaccine ( - season) 2024 Influenza Vaccine (#1) 2024 07/28/2013 Alcohol/Substance Use Screening 07/21/2025 07/21/2024 Tobacco Screening 07/21/2025 07/21/2024 Cervical Cancer Screening 02/28/2027 HPV/Cotest 02/28/2027 02/28/2022, 02/03, 02/28/2022, Additional history exists Pap Smear 02/28/2027 02/28/2022, 07/13/2020 Zoster Vaccines (1 of 2) 2035 RSV Patients and Patients Aged 60 years or older (1 - 1-dose 75+ series) 02/07/2060 Hepatitis B Vaccines Completed 03/04/1997, 10/04/1996, 08/04/1996 IPV Vaccines Completed 05/04/1999, 05/07, 06/04/1996, Additional history exists HIV Screening Completed 10/08/2023, 04/04, 07/13/2020, Additional history exists Hepatitis C Screening Completed 10/08/2023, 023 HIB Vaccines Aged Out No longer eligi ble based on patient's age to complete this topic HPV Vaccines Aged Out No longer eligi ble based on patient's age to complete this topic Hepatitis A Vaccines Aged Out No long er eligible based on patient's age to complete this topic Meningococcal Vaccine Aged Out No rocio chu eligible based on patient's age to complete this topic RSV under 20 months Aged Out No longe r eligible based on patient's age to complete this topic Rotavirus Vaccines Aged Out No longer eligible based on patient's age to complete this topic Procedures Procedure Name Priority Date/Time Associated Diagnosis Comments US PELVIS TRANSVAGINAL Routine 09/07/2024 11:15 AM EST HEPATITIS C ANTIBODY Routine 10/08/2023 3:40 PM EST HIV 1/2 ANTIGEN/ANTIBODY, FOURTH GENERATION W/RFL Routine 10/08/2023 3:40 PM EST HM PAP/HPV Routine 02/28/2022 from Last 3 Months or Most Recently Relevant to Health Maintenance Results * US Pelvis Transvaginal (09/07/2024 11:15 AM EST) Anatomical Region Laterality Modality Pelvis Ultrasound 09/07/2024 11:1 5 AM EST Narrative 10/23/2024 11:57 AM EST ? [facility] ?[address] ?[place] [address] ? Ultrasound Report ? Signed ? Patient: Kendall Grant,Irish G ?MR#: ?? [id number] ? : 1985 ?Acct:[id number] ? Age/Sex: 39 / F ?ADM Date: 12/04/24 ? Loc: HO.US ? Attending Dr: Chantelle Bernal CNM ? Ordering Physician: Chantelle Bernal CNM ?? Date of Service: 09/07/24 ?? Procedure(s): US pelvic and transvaginal ?? Accession Number(s): [id number] ? cc: Chantelle Bernal CNM; Suzy Mabry [...] ??Tory Escobar MD ??10/23/2024 11:54 AM EST ?? RP ? Dictated By: ?Tory Escobar MD ? Signed By: ?<Electronically signed by Tory Escobar MD in OV> ? 10/23/24 1154 ? DD/ 1115 ? TD/TT: 09/07/24 1145 ? Supervisor Liquefaction: ? Procedure Note Donotuseinterpreter, Image - 10/23/[address] [address] Ultrasound Report Signed Patient: Irish Pope GMR#: [id number] : 1985Acct:[id number] Age/Sex: 39 / FADM Date: 09/07/24 Loc: HO.US Attending Dr: Chantelle Bernal CNM Ordering Physician: Chantelle Bernal CNM Date of Service: 09/07/24 Procedure(s): US pelvic and transvaginal Accession Number(s): [id number] cc: Chantelle Bernal CNM; Suzy Mabry MD [...] by: Tory Escobar MD 10/23/2024 11:54 AM EST Dictated By: Tory Escobar MD Signed By: <Electronically signed by Tory Escobar MD in OV> 10/23/24 1154 DD/ 1115 TD/TT: 09/07/24 1145 Supervisor Liquefaction: us [facility] External Provider IMG US PROCEDURES Edited Result - Final * Hepatitis C Ab (10/08/2023 3:40 PM EST) Hepatitis C Antibody Nonreactive Nonreactive [facility] Comment:Antibodies to HCV no t detected; does not exclude early acuteHCV infection. 10/08/2023 3:40 PM EST 10/08/2023 3:45 PM EST Generic External Data Provider LAB BLOOD ORDERAB LES Final Result [facility] [address] [place] [phone] * HIV-1/2 Antigen and Antibodies, Fourth Generation, with Reflexes (10/08/2023 3:40 PM EST) HIV AB/AG Nonreactive Nonreactive [facility] Comment:HIV-1 p24 Ag and/or HIV-1/HIV-2 Ab not detected.A test result that is nonreactive does not exclude thepossibility of exposure to or infection with HIV-1 and/orHIV-2. Nonreactive results in this assay for individualswith prior exposure to HIV-1 and/or HIV-2 may be due toantigen and antibody levels that are below the limit ofdetection of this assay.The [employer] HIV Ag/Ab Combo assay result andsupplemental assay results should be interpreted inconjunction with the patient's clinical presentation,history and other laboratory results. If the results areinconsistent with clinical evidence, additional testing issuggested to confirm the result. 10/08/2023 3:40 PM EST 10/08/2023 3:45 PM EST us Generic External Data Provider LAB BLOOD ORDERAB LES Final Result [facility] [address] [place] [phone] [phone] * Hm Pap Smear (02/28/2022) Pap Negative for intraephithelial lesion or malignancy Negative for intraephithelial lesion or malignancy, Other HPV Undetected us Historical Provider HEALTH MAINTENANCE Final Result from Last 3 Months or Most Recently Relevant to Health Maintenance [facility] Care Teams Plumbing Hardware Assembler Relationship Specialty Start Date End Date Suzy Mabry MD [address] [place] [id number] PCP - General Family Medicine 10/05/18
--- OUTSIDE RECORDS SUMMARY | 2024-11-09 12:40 | XMS_ITS | Clinical Summary ---
Author Organization [facility] Address [address] [place] [phone] Phone Care Team Providers Care Esthetician Name Role Phone Unavailable Primary Care Provider Unavailabl e Immunizations Name Administration Dates Next Due DTP 05/04/1999, 7,06/04/1996,10/04/19 95,12/02/1994 Hep B, ped/adol 03/04/1997,10/04/1996,08/04/1996 IPV 05/04/1999, 7,06/04/1996,10/04/19 95,09/03/1995 MMR 06/04/1996,08/04/1990 Td (adult) (Teniva), 5 Lf t etanus toxoid, PF, adsorbed 12/17/1998 Social History Tobacco Use Types Packs/Day Years Used Date Smoking Tobacco: Never Assessed Comments Unknown Sex and Gender Information Value Date Recorded Sex Assigned at Not on file Legal Sex Female 4:40 PM EDT Gender Identity Not on file Sexual Orientation Not on file Plan of Treatment Health Maintenance Due Date Last Done Comments Varicella Vaccines (1 of 2 - 13+ 2-dose series) 1998 DTaP,Tdap,and Td Vaccines (7 - Tdap) 05/04/2009 05/04/1999, 12/17/1998, 06/04/1997, Additional history exists Influenza Vaccines (#1) 2024 07/28/2013 COVID-19 Vaccine ( season) 2024 MMR Vaccines Completed 06/04/1996, 08/04/1990 Hepatitis B Vaccines Completed 03/04/1997, 10/04/1996, 08/04/1996 IPV Vaccines Completed 05/04/1999, 05/07, 06/04/1996, Additional history exists HIB Vaccines Aged Out No longer eligi ble based on patient's age to complete this topic HPV Vaccines Aged Out No longer eligi ble based on patient's age to complete this topic Hepatitis A Vaccines Aged Out No long er eligible based on patient's age to complete this topic Men B Vaccine Aged Out No longer elig ible based on patient's age to complete this topic Meningococcal Vaccine Aged Out No rocio chu eligible based on patient's age to complete this topic Pneumococcal Vaccine Aged Out No long er eligible based on patient's age to complete this topic
--- OUTSIDE RECORDS SUMMARY | 2024-11-09 12:41 | XMS_ITS | Encounter Summary ---
Author Organization [facility] Address [address] [place] [address] Phone Care Team Providers Care Public Policy Manager Name Role Phone Rigoberto Carias MD Primary Care Provider [phone] Encounter Details Date Type Department Care Team (Late st Contact Info) Description 05/18/2012 Documentation [facility] Family Medicine [address] [place] [address] Family Medicine, Physician [address] [place] [address] Social History Tobacco Use Types [...] on filedocumented in this encounter Care Teams Public Policy Manager Relationship Specialty Start Date End Date Rigoberto Carias MD [address] [facility] [place] [address] PCP - General 05/15/17 03/11/23 documented as of this encounter
== END 2024-11-09 10:39 | disposition home or self-care (01) ==
LOC: HO.LAB 10:38
PROVIDERS: PCP Family Medicine; Visit Provider Advanced Practice Midwife
DX: N93.9 Abnormal uterine and vaginal bleeding, unspecified (principal); R93.89 Abnormal findings on diagnostic imaging of other specified body structures; Z20.2 Contact with and (suspected) exposure to infections with a predominantly sexual mode of transmission
CPT/HCPCS: 81025; 81515; 86704; 86780; 86803; 87389; 87491; 87591; 99212

== ENCOUNTER 2024-11-09 11:14 | Outpatient (REF) | payer MEDICAID, SELFPAY ==
[2024-11-10 04:52] LABS: CT PCR NOT DETECTED (Not Detect.); NG PCR NOT DETECTED (Not Detect.)
[2024-11-10 07:19] LABS: HBc Num1 0.16 S/CO (0.00-0.79); HIV AB/AG Nonreactive (Nonreactive); HIV Num 1 0.06 S/CO (0.00-0.99); Hepatitis B Core Antibody Nonreactive (Nonreactive); ~Hepatitis C Antibody Nonreactive (Nonreactive)
[2024-11-10 07:40] LABS: Syphilis Screen Nonreactive (Nonreactive)
[2024-11-10 12:36] LABS: Bacterial Vaginosis PCR NEGATIVE (Negative); Candida Group PCR NOT DETECTED (Not Detect); Candida glab krusei PCR NOT DETECTED (Not Detect); Trichomonas vaginalis PCR NOT DETECTED (Not Detect)
== END 2024-11-09 11:15 | disposition home or self-care (01) ==
LOC: HO.LNP 11:14
PROVIDERS: Visit Provider Advanced Practice Midwife
DX: Z20.2 Contact with and (suspected) exposure to infections with a predominantly sexual mode of transmission (principal); N93.9 Abnormal uterine and vaginal bleeding, unspecified
CPT/HCPCS: 81515; 86704; 86780; 86803; 87389; 87491; 87591

== ENCOUNTER 2024-11-09 11:36 | Outpatient (REF) | payer MEDICAID, SELFPAY ==
--- OUTSIDE RECORDS SUMMARY | 2024-11-09 13:27 | XMS_ITS | Encounter Summary ---
Author Organization [facility] Address [address] [place] [address] Care Team Providers Care Lock And Dam Equipment Repairer Name Role Phone Suzy Mabry MD Primary Care Provider Encounter Details Date Type Department Care Team (Late st Contact Info) Description 04/16/2023 Orders Only [facility] MEDICINE [address] [place], [place] [phone] Suzy Mabry MD [address] [place], [place] [phone] Social History Tobacco Use Types Packs/Day Years [...] documented as of this encounter Care Teams Lock And Dam Equipment Repairer Relationship Specialty Start Date End Date Suzy Mabry MD [address] [place] [address] PCP - General Family Medicine 10/05/18 documented as of this encounter
== END 2024-11-09 11:37 | disposition home or self-care (01) ==
LOC: HO.LAB 11:36
PROVIDERS: PCP Family Medicine; Visit Provider Advanced Practice Midwife
DX: Z13.89 Encounter for screening for other disorder (principal)

== ENCOUNTER 2024-11-30 11:05 | Outpatient (AMB) | payer MEDICAID, SELFPAY ==
--- NOTE | 2024-11-30 11:30 | A.OFFVIS_ITS ---
Intake Visit Reasons: Hysteroscopy consult Bending Machine Operator: Bending Machine Operator Present (Melissa) Accompanied by: Self / Same As Patient Allergies No Known Allergies [No Known Allergies*] Allergy (Verified 11/30/24 11:36) Is last menstrual period known: Yes Last menstrual period: 08/02/20 Post menopausal: No Patient : No Do you need a note to return to daycare/school/sports/work: Yes (for surgery on thursday) HPI Comments Details: Presenting referred from Chantelle Bernal CNM regarding abnormal endometrium by recent Pap ultrasound which showed the following: Anteverted uterus measures 10.4 x 4.5 x 5.4 cm. Previously identified 0.4 cm fibroid not identified on the current exam. Heterogeneous uterine echotexture. No significant free fluid. Endometrial thickness is 12 mm. A 7 x 6 x 7 mm complex cystic collection with echogenic wall is identified within the endometrium and was not identified on the prior study. No significant free fluid. Right ovary measures 2.5 x 1.4 x 1.7 cm, volume 3.1 mL. Left ovary measures 2.7 x 1.8 x 1.6 cm, volume 4.1 mL. No significant free fluid. The patient has been having heavy menstrual cycles the following workup has been done so far: H&H 11.8/35.7 TSH, GC/CT negative 03/26 co testing negative PFSH Medical History (Updated 11/30/24 @ 11:49 by Amadeo Mays MD) Possible exposure to STD Bleeding hemorrhoids Asthma Family history of ovarian cancer Family history of breast cancer Hx of lipoma Surgical History History of hernia surgery H/O tubal ligation Family History Paternal Aunt Hx of breast cancer Hx of ovarian cancer Maternal Aunt History of uterine cancer Father History of prostate cancer Paternal Grandmother History of colon cancer Paternal Uncle History of prostate cancer Social History Alcohol intake: never Sexual orientation: Straight/Heterosexual Gender identity: Female Female Reproductive History Menstrual Age of Menarche: 10 Duration of menses: 3-5 days Date of last menstrual period: 08/02/20 Total pregnancies: 3 Full term: 3 Date of last pap smear: 02/28/22 (negative pap smear, negative hpv) Review of Systems Card Reports as per HPI and Reports no additional complaints Resp Reports as per HPI and Reports no additional complaints GI Reports as per HPI and Reports no additional complaints Reports as per HPI Physical Exam Const General: cooperative, healthy appearing and comfortable Resp Effort & Inspection: normal respiratory effort Auscultation: clear to auscultation bilaterally Percussion: percussion normal Cardio Palpation: normal PMI Rate: regular rate Rhythm: regular rhythm Heart sounds: no murmurs and no rubs Peripheral pulses: Peripheral pulses 2+ throughout GI Inspection: Yes normal to inspection Palpation (GI): Soft to palpation, nontender, no guarding, not rigid and No hepatosplenomegaly present Percussion: Yes normal to percussion Auscultation: normal bowel sounds Rectal Exam - Female: deferred Assessment & Plan Assessment & Plan (1) Abnormal ultrasound of endometrium: Code(s): R93.5 - Abnormal findings on diagnostic imaging of other abdominal regions, including retroperitoneum Category: Medical Plan: Discussed with the patient the finding on pelvic ultrasound, recommended hysteroscopy D&C possible polypectomy/myomectomy. Discussed with the patient the procedure , all benefits and risks including but not limited to inability to complete the procedure , insufficient endometrial tissue for a complete evaluation of the endometrial cavity , bleeding, infection, possible need for blood transfusion with all its risk ( HIV,syphilis, Hepatitis, anaphylaxis shock, others..), injury to bladder, rectum, possible need for laparoscopy/laparotomy or hysterectomy. The patient verbalized understanding and signed the consent. Instructions given the patient to stay NPO after midnight the day prior to the procedure and to take only the specific medication (s) discussed the morning of the surgical procedure and to schedule a 2 week postoperative appointment (2) Abnormal uterine bleeding (AUB): Code(s): N93.9 - Abnormal uterine and vaginal bleeding, unspecified Category: Medical Plan: Discussed with the patient the workup done, will proceed with hysteroscopy D&C possible polypectomy/myomectomy to rule out endometrial pathology including endometrial hyperplasia and/or malignancy. All questions answered, the patient verbalized understand Coding Level of Care Code Est Pt Level 3 (04081) Diagnoses Abnormal ultrasound of endometrium R93.5 Abnormal uterine bleeding (AUB) N93.9
--- OUTSIDE RECORDS SUMMARY | 2024-11-30 13:55 | XMS_ITS | Encounter Summary ---
Author Organization [employer] Address [address] [facility] [address] [place] [address] Care Team Providers Care Jinrikisha Driver Name Role Phone Suzy Mabry MD Primary Care Provider [phone] Encounter Details Date Type Department Care Team (Late st Contact Info) Description 04/16/2023 Orders Only [facility] MEDICINE [address] [place], [place] [phone] Suzy Mabry MD [address] [place], [place] [phone] Social History Tobacco Use Types Packs/Day Years [...] documented as of this encounter Care Teams Jinrikisha Driver Relationship Specialty Start Date End Date Suzy Mabry MD [address] [place] [address] PCP - General Family Medicine 10/05/18 documented as of this encounter
--- OUTSIDE RECORDS SUMMARY | 2024-11-30 13:56 | XMS_ITS | Clinical Summary ---
Author Organization [facility] Address [address] [place] [phone] Phone Care Team Providers Care Hat Model Name Role Phone Unavailable Primary Care Provider Unavailabl e Immunizations Immunization Administration Dates Next Due DTP 05/04/1999, 7,06/04/1996,1994,12/02/1994 Hep B, ped/adol 03/04/1997,10/04/1996,08/04/1996 IPV 05/04/1999, 7,06/04/1996,1994,09/03/1995 MMR 06/04/1996,08/04/1990 Td (adult) (Teniva), 5 Lf [...] Vaccines (#1) 2024 07/28/2013 COVID-19 Vaccine ( - season) 2024 MMR Vaccines Completed 06/04/1996, 08/04/1990 [...]
--- OUTSIDE RECORDS SUMMARY | 2024-11-30 13:56 | XMS_ITS | Encounter Summary ---
Author Organization [facility] Address [address] [place] [phone] Phone Care Team Providers Care Monorail Crane Operator Name Role Phone Rigoberto Cairas MD Primary Care Provider Encounter Details Date Type Department Care Team (Late st Contact Info) Description 11/05/2011 Documentation [facility] [place] [address] [place] [address] Family Medicine, Physician [address] [place] [address] Social History Tobacco Use Types [...] on filedocumented in this encounter Care Teams Monorail Crane Operator Relationship Specialty Start Date End Date Rigoberto Carias MD [address] [facility] [place] [address] PCP - General 05/15/17 03/11/23 documented as of this encounter
--- OUTSIDE RECORDS SUMMARY | 2024-11-30 13:56 | XMS_ITS | Encounter Summary ---
Author Organization [employer] Address [address] [facility] [address] [place] [address] Care Team Providers Care Rosin Barrel Filler Name Role Phone Suzy Mabry MD Primary Care Provider [phone] Reason for Referral * Consultation (Urgent) - Closed Specialty Diagnoses / Procedures Referred By Contjamila t Referred To Contact Obstetrics and Gynecology Diagnoses Encounter for well woman exam with routine gynecological exam Pelvic pain Suzy Mabry MD [address] [place] [address] Phone: tel: fax: [facility] Referral ID Status Reason Start Date Expiration Date V isits Requested Visits Authorized [id number] Closed Specialty Services Required 06/27/2024 06/27/2025 9 9 Encounter Details Date Type Department Care Team (Late st Contact Info) Description 06/28/2024 Orders Only [facility] MEDICINE [address] [place] [address] [phone] Suzy Mabry MD [address] [place], [place] [phone] Encounter for well woman exam with routine [...] Reticulocytes Absolute 0.069 0.026 - 0.095 X10*6/uL [facility] Immature Retic Fraction 16.3(H) 3.0 - 15.9 % [facility] Retic HGB Equivalent 29.1(L) 30.0 - 35.0 pg [facility] Reticulocyte Percent 1.5 0.5 - 1.8 % [facility] Blood Venous blood specimen / Unknown 07/21/2024 2:50 PM EDT 07/21/2024 4:18 PM EDT Suzy Mabry MD LAB BLOOD ORDERABLES Final Resul t Performing Organization Address [facility] Co de Phone Number [facility] [address] [place] [phone] * Iron And Total Iron Binding Capacity (07/21/2024 2:50 PM EDT) Iron 65 30 - 160 mcg/dL [facility] Total Iron Binding Capacity 292 228 - 428 mcg/dL [facility] Percent Iron Saturation 22 15 - 50 % [facility] Unsaturated Iron Binding 227 ug/dL [facility] Blood Venous blood specimen / Unknown 07/21/2024 2:50 PM EDT 07/21/2024 4:18 PM EDT Suzy Mabry MD LAB BLOOD ORDERABLES Final Resul t Performing Organization Address [facility] Co de Phone Number [facility] [address] [place] [phone] * Ferritin (07/21/2024 2:50 PM EDT) Ferritin 26 10 - 122 ng/mL [facility] Blood Venous blood specimen / Unknown 07/21/2024 2:50 PM EDT 07/21/2024 4:18 PM EDT us Suzy Mabry MD LAB BLOOD ORDERABLES Final Resul t [facility] [address] [place] [phone] * (ABNORMAL) CBC auto differential (07/21/2024 2:50 PM EDT) White Blood Count 9.4 4.8 - 10.8 X10*3/uL [facility] Red Blood Count 4.68 4.20 - 5.50 X10*6/uL [facility] Hemoglobin 11.8(L) 12.0 - 16.0 g/dl [facility] Hematocrit 35.7(L) 37.0 - 47.0 % [facility] Mean Corpuscular Volume 76.3(L) 80.0 - 98.0 fL [facility] Mean Corpuscular Hemoglobin 25.2(L) 27.0 - 33.0 pg [facility] Mean Corpuscular HGB Conc 33.1 31.0 - 35.0 g/dl [facility] Red Cell Distribution Width 13.1 11.0 - 16.0 % [facility] Platelet Count 244 160 - 400 X10*3/uL [facility] Mean Platelet Volume 11.4 9.4 - 12.3 fL [facility] Neutrophils Percent Auto 66.0 45 - 73 % [facility] Imm Gran Pct Auto 0.3 0.0 - 0.4 % [facility] Lymphocytes Percent Auto 26.3 20 - 40 % [facility] Monocytes Percent Auto 5.3 2 - 11 % [facility] Eosinophils Percent Auto 1.4 0 - 4 % [facility] Basophils Percent Auto 0.7 0 - 2 % [facility] NRBC Pct Auto 0.0 0.0 - 0.2 /100WBC [facility] Neutrophils Absolute Auto 6.2 2.0 - 8.3 x10*3/uL [facility] Imm Gran Abs Auto 0.03 0.00 - 0.03 X10*3/uL [facility] Lymphocytes Absolute Auto 2.5 1.2 - 4.9 X10*3/uL [facility] Monocytes Absolute Auto 0.5 0.1 - 1.2 X10*3/uL [facility] Eosinophils Absolute Auto 0.1 0.0 - 0.4 X10*3/uL [facility] Basophils Absolute Auto 0.1 0.0 - 0.2 X10*3/uL [facility] NRBC Abs Auto 0.000 0.0 - 0.012 X10*3/uL [facility] Blood Venous blood specimen / Unknown 07/21/2024 2:50 PM EDT 07/21/2024 4:18 PM EDT us Suzy Mabry MD LAB BLOOD ORDERABLES Final Resul t Performing Organization Address City/State/[facility] Co de Phone Number [facility] [address] [place] [phone] documented in this encounter Visit Diagnoses [...] documented as of this encounter Care Teams Rosin Barrel Filler Relationship Specialty Start Date End Date Suzy Mabry MD [address] [place] [phone] PCP - General Family Medicine 10/05/18 documented as of this encounter
--- OUTSIDE RECORDS SUMMARY | 2024-11-30 13:56 | XMS_ITS | Clinical Summary ---
Author Organization [employer] Address [address] [facility] [address]t [place] [address] Care Team Providers Care Otolaryngology Surgeon Name Role Phone Suzy Mabry MD Primary Care Provider [phone] Allergies No known active allergies Medications cetirizine (ZyrTEC) 10 MG tabletIndication s:Allergic rhinitis, unspecified seasonality, unspecified trigger Take 1 tablet (10 mg) by mouth Once per day. 90 tablet 3 4 Active terbinafine (LamISIL AT) 1 % cream Apply topically 2 times daily. 42 g 4 Active cholecalciferol (Vitamin D-3) 25 MCG (1000 UT) tablet Take 1 tablet (25 mcg) by mouth Once per day. 90 tablet 3 4 Active fluticasone (Flonase) 50 MCG/ACT nasal sprayIndications :Allergic rhinitis, unspecified seasonality, unspecified trigger ADMINISTER 1-2 SPRAYS INTO EACH NOSTRIL ONCE PER DAY. SHAKE GENTLY. BEFORE FIRST USE, PRIME PUMP. AFTER USE, CLEAN TIP AND REPLACE CAP. 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 [facility] ?[address] ?[place] [address] ? Ultrasound Report ? Signed ? Patient: Enoch Burns,[place] G ?MR#: ?? [id number] ? : 1985 ?Acct:[id number] ? Age/Sex: 39 / F ?ADM Date: 12/04/24 ? Loc: HO.US ? Attending Dr: Chantelle Bernal CNM ? Ordering Physician: Chantelle Bernal CNJurgen ?? Date of Service: 12/04/24 ?? Procedure(s): US pelvic and transvaginal ?? Accession Number(s): [id number] ? cc: Chantelle Bernal CNM; Suzy Mabry [...] DD/ 1115 ? TD/TT: 09/07/24 1145 ? Bone Tender: ? Procedure Note Saúl, Juan - 10/23/[address] [address] Ultrasound Report Signed Patient: Irish Pope R#: [id number] : 1985Acct:[id number] Age/Sex: 39 / FADM Date: 09/07/24 Loc: HO.US Attending Dr: Chantelle Bernal CNM Ordering Physician: Chantelle Bernal CNM Date of Service: 09/07/24 Procedure(s): US pelvic and transvaginal Accession Number(s): [id number] cc: Chantelle Bernal CNM; Suzy Mabry MD [...] by: Tory Escobar MD 10/23/2024 11:54 AM [facility] Dictated By: Tory Escobar MD Signed By: <Electronically signed by Tory Escobar MD in OV> 10/23/24 1154 DD/ 1115 TD/TT: 09/07/24 1145 Bone Tender: [facility] External Provider IMG US PROCEDURES Edited Result - Final * Hepatitis C Ab (10/08/2023 3:40 PM EST) Hepatitis C Antibody Nonreactive Nonreactive [facility] Comment:Antibodies to HCV no t detected; does not exclude early acuteHCV infection. 10/08/2023 3:40 PM EST 10/08/2023 3:45 PM EST Generic External Data Provider LAB BLOOD ORDERAB LES Final Result Performing Organization Address [facility] Co de Phone Number [facility] [address] [place] [phone] * HIV-1/2 Antigen and Antibodies, Fourth Generation, with Reflexes (10/08/2023 3:40 PM EST) HIV AB/AG Nonreactive Nonreactive [facility] Comment:HIV-1 p24 Ag and/or HIV-1/HIV-2 Ab not detected.A test result that is nonreactive does not exclude thepossibility of exposure to or infection with HIV-1 and/orHIV-2. Nonreactive results in this assay for individualswith prior exposure to HIV-1 and/or HIV-2 may be due toantigen and antibody levels that are below the limit ofdetection of this assay.The [employer] HIV Ag/Ab Combo assay result andsupplemental assay results should be interpreted inconjunction with the patient's clinical presentation,history and other laboratory results. If the results areinconsistent with clinical evidence, additional testing issuggested to confirm the result. 10/08/2023 3:40 PM EST 10/08/2023 3:45 PM EST Generic External Data Provider LAB BLOOD ORDERAB LES Final Result Performing Organization Address [facility]/ZIP Co de Phone Number [facility] [address] [place] [address] [phone] * Hm Pap Smear (02/28/2022) Pap Negative for intraephithelial lesion or malignancy Negative for intraephithelial lesion or malignancy, Other HPV Undetected us Historical Provider HEALTH MAINTENANCE Final Result from Last 3 Months or Most Recently Relevant to Health Maintenance [facility] Care Teams Otolaryngology Surgeon Relationship Specialty Start Date End Date Suzy Mabry MD [address] [place] [phone] PCP - General Family Medicine 10/05/18
--- OUTSIDE RECORDS SUMMARY | 2024-11-30 13:56 | XMS_ITS | Encounter Summary ---
Author Organization [facility] Address [address] [place] [phone] Phone Care Team Providers Care Patient Access Director Name Role Phone Rigoberto Carias MD Primary Care Provider [phone] Encounter Details Date Type Department Care Team (Late st Contact Info) Description 05/18/2012 Documentation [facility] [place] [address] [place] [address] Family Medicine, Physician [address] [place], [place] [phone] Social History Tobacco Use Types Packs/Day Years [...] on filedocumented in this encounter Care Teams Patient Access Director Relationship Specialty Start Date End Date Rigoberto Carias MD [address] [facility] [place] [address] PCP - General 05/15/17 03/11/23 documented as of this encounter
--- OUTSIDE RECORDS SUMMARY | 2024-11-30 13:56 | XMS_ITS | Encounter Summary ---
Author Organization [facility] Address [address] [facility] [address] [place] [address] Care Team Providers Care Hotel Dining Room Cashier Name Role Phone Suzy Mabry MD Primary Care Provider [phone] Encounter Details Date Type Department Care Team (Late st Contact Info) Description 07/06/2023 Abstract [facility] MEDICINE [address] [place] [address] [place] Fuller Social History Tobacco Use Types [...] documented as of this encounter Care Teams Hotel Dining Room Cashier Relationship Specialty Start Date End Date Suzy Mabry MD [address] [place] [address] PCP - General Family Medicine 10/05/18 documented as of this encounter
--- OUTSIDE RECORDS SUMMARY | 2024-11-30 13:56 | XMS_ITS | Encounter Summary ---
Author Organization [employer] Address [address] [facility] [address] [place] [address] Care Team Providers Care Guncotton Packer Name Role Phone Suzy Mabry MD Primary Care Provider [phone] Reason for Referral * Consultation (Routine) - Closed Specialty Diagnoses / Procedures Referred By Contac t Referred To Contact Optometry Diagnoses Visual impairment Suzy Mabry MD [address] [place] [address] Phone: tel: fax: [facility] OPTOMETRY [address] [place] [address] Phone: tel: fax: Referral ID Status Reason Start Date Expiration Date V isits Requested Visits Authorized [id number] Closed Consult and Treat 08/02/2024 08/02/2025 1 1 Encounter Details Date Type Department Care Team (Late st Contact Info) Description 07/26/2024 Orders Only [facility] MEDICINE [address] [place] [address] Suzy Mabry MD [address] [place], [place] [phone] Visual impairment (Primary Dx) Social History Tobacco [...] Associated Diagnoses Orde r Schedule Referral to [facility] Eye Care Outpatient Referral Routine Visual impairment Expected: 08/02/2024 (Approximate), Expires: 08/02/2025 documented as of this encounter Visit Diagnoses Diagnosis Visual impairment- Primary Unspecified visual loss documented in this encounter Additional Health Concerns Assessment Noted Time PHQ-9 Depression Total Score: 0 04/09/20 23 11:11 AM EDT documented as of this encounter Care Teams Guncotton Packer Relationship Specialty Start Date End Date Suzy Mabry MD [address] [place] [address] PCP - General Family Medicine 10/05/18 documented as of this encounter
--- OUTSIDE RECORDS SUMMARY | 2024-11-30 13:56 | XMS_ITS | Data Portability ---
Demographics Address [address] [place] [address] Home Phone Mobile Phone Email Address Preferred Language es Marital Status Domestic partner Latter Day Affiliation Unknown Race Unknown Additional Race(s) Other Race Ethnic Group or Author Organization [facility], Allergy Address [address] [address] Care Team Providers Care Recycling Director Name Role Phone SANJUANITA JOSEPHA Primary Care Provider [phone] Assessment Encounter Date Assessment Date Assessment LastModified by Organization Details LastModified Time 08/11/2024 08/11/2024 39-year-old female with a history of migraines presents today for evaluation of allergy symptoms and also to follow-up on previous CT sinus in 2009 showing a mucous retention cyst. She has had no imaging since then. There is a rightward deviated septum on exam, turbinates are 3+. No pus or polyps. I recommended an antihistamine. Will obtain updated imaging given persistent symptoms. 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 She has some secondary concern for her hearing so we will plan on audiogram at follow-up. [email or web address] Not available 08/19/2024 05:49:23 10/18/2024 10/18/2024 Thankfully audiometric testing showed normal hearing. I recommended masking for the tinnitus. She has not yet been contacted about her CT, so I gave her contact information. She can continue allergy regimen. [email or web address] Not available 10/24/2024 04:44:58 Plan of Treatment Reminders Order Date Submit Date Provider Last Modified By Organization Details Last Modified Time Details Appointments None recorded. Lab None recorded. Referral None recorded. Procedures None recorded. Surgeries None recorded. Imaging CT, sinuses, w/o contrast 2023 024 [email or web address] [facility] Centralized Scheduling([facility] [address] [place] [address], [phone], 4 10:35:17 Medication Orders Mary Allergy 180 mg tablet 2023 025 [facility][id number], [address] [facility], [place], [address], 5 11:09:21 Patient TargetsNo targets recorded. Patient InstructionsNo instructions [...] Details Recorded Time Mild intermitt ent asthma 857083389 Active 2015 Mild intermitt ent asthma, uncomplic ated; Note: Date Diagnosed : 12/07/2015 12:16 PM (J45.20) Not Available [facility]ly [facility], [facility] 4 03:23:42 Allergic rhinitis 59405211 Active 2015 Allergic rhinitis: Due to other allergen; Note: Date Diagnosed : 05/08/2016 4:32 PM (477.8) Other allergic rhinitis; Note: Date Diagnosed : 12/07/2015 12:35 PM (J30.89) ; Start Date : 6 Not Available [facility], [facility]–1983 4 03:23:42 Acute upper respirato ry infection 73735089 Active 2015 Upper respirato ry disease, acute; Note: Date Diagnosed : 02/21/2016 11:24 AM (J06.9) Not Available [facility], [facility] 4 03:23:42 Hypertrop hy of nasal turbinate s 72490574 Active 2015 Hypertrop hy of nasal turbinate s; Note: Date Diagnosed : 12/07/2015 12:20 PM (J34.3) Not Available [facility], [facility] 4 03:23:42 Atypical facial pain 38434447 Active 2023 MARYLU BILLS MD [address] [place] [address], [place], [address] , [facility] 4 09:30:36 Deviated nasal septum 470353443 Active 2023 MARYLU BILLS MD [address] [facility],[place] [address], [facility] [place], [address] , [facility] - [facility] 4 05:49:37 Cyst of maxillary sinus 745781078 Active 2023 MARYLU BILLS MD [address] [facility],[place] [address], [facility] [place], [address] , [facility] - [facility] 4 05:49:43 Bilateral tinnitus 88195378421 02 Active 2024 Gerardo GARZA [address] [facility],[place] [address], [facility] [place], [address] , [facility] - [facility] 5 10:59:05 Problem Notes None recorded. Procedures Surgical History Date Name Laterality Status Provider Name and Address Organization Details Recorded Time 5 Comp Audio with Tymps (91981 & 26189) completed Gerardo GARZA [address] [facility],[place] [address], [place], [address], [facility] 10/18/2024 10:58:40 JMSNasal/Sinus Endoscopy completed MARYLU BILLS MD [address] [facility],[place] [address], [place], [address], [facility] - [facility] 08/11/2024 09:30:24 Imaging Results Imaging Date Name Status LastModified by Organiz ation Details LastModified Time 10/19/2024 audiogram completed BARCODE Information no t available 10/19/2024 09:38:23 Procedure Notes None recorded. Medical Equipment None [...] both nostrils 10/18 completed Medicati on ID: [id number] P rescribe d By Name: Cristiane Royal nd Name: azelastjulissa joey Send Method: E-Prescr ibed Sub s Allowed: [...] 2 spray 10/18 completed Medicati on ID: [id number] D uration Value: 3 Prescri bed By Name: Cristiane Royal nd Name: oxymetaz oline Se nd Method: E-Prescr ibed Sub s [...] intramus cularly 10/18 completed Medicati on ID: [id number] D uration Value: 180 Prescri bed By Name: Sreedhar soares M.D. Bra nd Name: Sharath Araujo Se nd Method: E-Prescr ibed Sub s Allowed: subs OK Medic ationGen ericName : Sharath 2-Jermaine Not Available Not Available Not Available Vitals Date Recorded Body height Body mass index (BMI) Body weight Provider Name and Address Organization Details Last Updated DateTime 08/11/2024 165.1 cm 25 kg/m2 65729.86 g Selina Guzman [facility] 08/11/2024 09:12:02 Date Recorded Body height Body mass index (BMI) Body weight Provider Name and Address Organization Details Last Updated DateTime 10/18/2024 165.1 cm 25 kg/m2 00731.65 juan luis Selina Guzman [facility] 10/18/2024 11:08:54 Social History None recorded. Functional [...] blood clotting problems. Medical History Condition Response Anemia Y Migraines Y Anxiety Y Depression Y Asthma Y Gynecological HistoryNo gynecological history recorded. Obstetrics History GPAL:G 0 P 0 0 0 0 Past Encounters Encounter ID Performer Location Encounter Start Date Encounter Closed Date Diagnosis/Indication Diagnosis SNOMED-CT Code Diagnosis ICD10 Code Diagnosis Note [id number] MARYLU BILLS MD [facility] [address] [place] [address] 08/11/2024 08:54:29 08/11/2024 09:39:51 Allergic rhinitis 78103879 J30.9 Atypical facial pain 713 30819 G50.1 Hypertroph y of nasal turbinates 20226807 J34.3 Deviated nasal septum 12 8417003 J34.2 Cyst of [place] xillary sinus 799386655 J34.1 [id number] MARYLU BILLS MD [facility] [address] [place] [address] 10/18/2024 10:18:43 10/19/2024 08:30:39 Bilateral tinnitus 7428830860 102 H93.13 Audiologic al evaluation results: Right [...] by Organization Details LastModified Time None Recorded Advance Directives Directive None Recorded Payers Encounter Date Sequence Insurance Name Policy Number Policy Krishnan Covered Member ID Krishnan Member ID Guarantor Name 08/11/2024 1 [place] [facility] Irish Kendall [id number] Irish Kendall 10/18/2024 1 [place] [facility] Irish Kendall [id number] Irish Kendall Notes Date Note Type Note Provider Name and Address Organization Details Recorded Time 08/11/2024 text/html 39-year-old ashley peterson presents today for evaluation of nasal cyst [...] since then. Has 2 dogs at home. [facility] trait PV (2015):. Patient presents for long standing hx of chronic nasal congestion refractory to antihistamines and nasal steroids.Hx of mild asthma, last albuterol use in October. No preventative medications. Allergy testing showed rx to dust, mold, cat grasses, dog, trees, ragweed, andcockroach. She has had minimal improvement with Astelin. MARYLU BILLS MD [address] [facility],[address], [address], [facility] 08/19/2024 05:50:17 10/18/2024 text/html Did not get imag ing. [...] since then. Has 2 dogs at home. [facility] trait PV (2016):. Patient presents for long standing hx of chronic nasal congestion refractory to antihistamines and nasal steroids.Hx of mild asthma, last albuterol use in October. No preventative medications. Allergy testing showed rx to dust, mold, cat grasses, dog, trees, ragweed, andcockroach. She has had minimal improvement with Astelin. MARYLU BILLS MD [address] [facility],[address], [address], [facility] - [facility] 10/24/2024 04:45:07 OBGyn Episode No OBEpisode recorded.
--- OUTSIDE RECORDS SUMMARY | 2024-11-30 13:56 | XMS_ITS | Encounter Summary ---
Author Organization [employer] Address [address] 7[address] [place] [address] Care Team Providers Care Circle Shear Operator Name Role Phone Suzy Mabry MD Primary Care Provider [phone] Encounter Details Date Type Department Care Team (Late st Contact Info) Description 05/01/2023 Abstract [facility] [address] [place], [place] [phone] Suzy Mabry MD [address] [place], [place] [phone] Social History Tobacco Use Types Packs/Day Years [...] documented as of this encounter Care Teams Circle Shear Operator Relationship Specialty Start Date End Date Suzy Mabry MD [address] [place] [address] PCP - General Family Medicine 10/05/18 documented as of this encounter
== END 2024-11-30 12:06 | disposition home or self-care (01) ==
LOC: HO.HWS 11:05
PROVIDERS: PCP Family Medicine; Visit Provider Obstetrics & Gynecology
DX: R93.5 Abnormal findings on diagnostic imaging of other abdominal regions, including retroperitoneum (principal); N93.9 Abnormal uterine and vaginal bleeding, unspecified
CPT/HCPCS: 99213

== ENCOUNTER → 2024-11-30 11:05 | Outpatient (BNVA) | payer MEDICAID, SELFPAY | PROVIDERS: PCP Family Medicine; Visit Provider Obstetrics & Gynecology | DX: N93.9 Abnormal uterine and vaginal bleeding, unspecified (principal); R93.5 Abnormal findings on diagnostic imaging of other abdominal regions, including retroperitoneum | CPT/HCPCS: 99212 ==

== ENCOUNTER 2024-12-22 12:29 | Day surgery (SDC) | payer MEDICAID, SELFPAY ==
--- OUTSIDE RECORDS SUMMARY | 2024-12-07 18:11 | XMS_ITS | Encounter Summary ---
Author Organization [facility] Address [address] [facility] [address] [place] [address] Care Team Providers Care Tinsmith Apprentice Name Role Phone Suzy Mabry MD Primary Care Provider [phone] Encounter Details Date Type Department Care Team (Late st Contact Info) Description 07/06/2023 Abstract [facility] MEDICINE [address] [place] [address] Apple Fuller Social History Tobacco Use Types [...] documented as of this encounter Care Teams Tinsmith Apprentice Relationship Specialty Start Date End Date Suzy Mabry MD [address] [place] [address] PCP - General Family Medicine 10/05/18 documented as of this encounter
--- OUTSIDE RECORDS SUMMARY | 2024-12-07 18:11 | XMS_ITS | Encounter Summary ---
Author Organization [employer] Address [address] [facility] 7[address] [place] [address] Care Team Providers Care Welding Estimator Name Role Phone Suzy Mabry MD Primary Care Provider [phone] Reason for Referral * Consultation (Urgent) - Closed Specialty Diagnoses / Procedures Referred By Contjamila t Referred To Contact Obstetrics and Gynecology Diagnoses Encounter for well woman exam with routine gynecological exam Pelvic pain Suzy Mabry MD [address] [place] [address] Phone: tel: fax: [facility] Referral ID Status Reason Start Date Expiration Date V isits Requested Visits Authorized [id number] Closed Specialty Services Required 06/27/2024 06/27/2025 9 9 Encounter Details Date Type Department Care Team (Late st Contact Info) Description 06/28/2024 Orders Only [facility] MED[facility] [address] [place] [phone] Suzy Mabry MD [address] [place], [place] [phone] Encounter for well woman exam with routine [...] Reticulocytes Absolute 0.069 0.026 - 0.095 X10*6/uL [facility] Immature Retic Fraction 16.3(H) 3.0 - 15.9 % [facility] Retic HGB Equivalent 29.1(L) 30.0 - 35.0 pg [facility] Reticulocyte Percent 1.5 0.5 - 1.8 % [facility] Blood Venous blood specimen / Unknown 07/21/2024 2:50 PM EDT 07/21/2024 4:18 PM EDT Suzy Mabry MD LAB BLOOD ORDERABLES Final Resul t Performing Organization Address [facility] Co de Phone Number [facility] [address] [place] [phone] * Iron And Total Iron Binding Capacity (07/21/2024 2:50 PM EDT) Iron 65 30 - 160 mcg/dL [facility] Total Iron Binding Capacity 292 228 - 428 mcg/dL [facility] Percent Iron Saturation 22 15 - 50 % [facility] Unsaturated Iron Binding 227 ug/dL [facility] Blood Venous blood specimen / Unknown 07/21/2024 2:50 PM EDT 07/21/2024 4:18 PM EDT Suzy Mabry MD LAB BLOOD ORDERABLES Final Resul t Performing Organization Address [facility] Co de Phone Number [facility] [address] [place] [phone] * Ferritin (07/21/2024 2:50 PM EDT) Ferritin 26 10 - 122 ng/mL [facility] Blood Venous blood specimen / Unknown 07/21/2024 2:50 PM EDT 07/21/2024 4:18 PM EDT us Suzy Mabry MD LAB BLOOD ORDERABLES Final Resul t [facility] [address] [place] [phone] * (ABNORMAL) CBC auto differential (07/21/2024 2:50 PM EDT) White Blood Count 9.4 4.8 - 10.8 X10*3/uL [facility] Red Blood Count 4.68 4.20 - 5.50 X10*6/uL [facility] Hemoglobin 11.8(L) 12.0 - 16.0 g/dl [facility] Hematocrit 35.7(L) 37.0 - 47.0 % [facility] Mean Corpuscular Volume 76.3(L) 80.0 - 98.0 fL [facility] Mean Corpuscular Hemoglobin 25.2(L) 27.0 - 33.0 pg [facility] Mean Corpuscular HGB Conc 33.1 31.0 - 35.0 g/dl [facility] Red Cell Distribution Width 13.1 11.0 - 16.0 % [facility] Platelet Count 244 160 - 400 X10*3/uL [facility] Mean Platelet Volume 11.4 9.4 - 12.3 fL [facility] Neutrophils Percent Auto 66.0 45 - 73 % [facility] Imm Gran Pct Auto 0.3 0.0 - 0.4 % [facility] Lymphocytes Percent Auto 26.3 20 - 40 % [facility] Monocytes Percent Auto 5.3 2 - 11 % [facility] Eosinophils Percent Auto 1.4 0 - 4 % [facility] Basophils Percent Auto 0.7 0 - 2 % [facility] NRBC Pct Auto 0.0 0.0 - 0.2 /100WBC [facility] Neutrophils Absolute Auto 6.2 2.0 - 8.3 x10*3/uL [facility] Imm Gran Abs Auto 0.03 0.00 - 0.03 X10*3/uL [facility] Lymphocytes Absolute Auto 2.5 1.2 - 4.9 X10*3/uL [facility] Monocytes Absolute Auto 0.5 0.1 - 1.2 X10*3/uL [facility] Eosinophils Absolute Auto 0.1 0.0 - 0.4 X10*3/uL [facility] Basophils Absolute Auto 0.1 0.0 - 0.2 X10*3/uL [facility] NRBC Abs Auto 0.000 0.0 - 0.012 X10*3/uL [facility] Blood Venous blood specimen / Unknown 07/21/2024 2:50 PM EDT 07/21/2024 4:18 PM EDT us Suzy Mabry MD LAB BLOOD ORDERABLES Final Resul t Performing Organization Address City/State/[facility] Co de Phone Number [facility] [address] [place] [phone] documented in this encounter Visit Diagnoses [...] documented as of this encounter Care Teams Welding Estimator Relationship Specialty Start Date End Date Suzy Mabry MD [address] [place] [address] PCP - General Family Medicine 10/05/18 documented as of this encounter
--- OUTSIDE RECORDS SUMMARY | 2024-12-07 18:11 | XMS_ITS | Clinical Summary ---
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 anemia and will also [...] Type Department Care Team Description 10/15/2024 Refill [facility] [address] [place] [address] Suzy Mabry MD Allergic rhinitis, unspecified seasonality, unspecified trigger from Last 3 Months Immunizations Name Administration [...] SDOH Screening 04/09/2024 04/09/2023 COVID-19 Vaccine ( season) 2024 Influenza Vaccine (#1) 2024 07/28/2013 [...] Procedure Name Priority Date/Time Associated Diagnosis Comments HEPATITIS C ANTIBODY Routine 10/08/2023 3:40 PM EST HIV 1/2 ANTIGEN/ANTIBODY, FOURTH GENERATION W/RFL Routine 10/08/2023 3:40 PM EST HM PAP/HPV Routine 02/28/2022 from Last 3 Months or Most Recently Relevant to Health Maintenance Results * Hepatitis C Ab (10/08/2023 3:40 PM EST) Hepatitis C Antibody Nonreactive Nonreactive [facility] Comment:Antibodies to HCV no t detected; does not exclude early acuteHCV infection. 10/08/2023 3:40 PM EST 10/08/2023 3:45 PM EST us Generic External Data Provider LAB BLOOD ORDERAB LES Final Result [facility] [address] [place] [phone] * HIV-1/2 Antigen and Antibodies, Fourth Generation, with Reflexes (10/08/2023 3:40 PM EST) HIV AB/AG Nonreactive Nonreactive [facility] Comment:HIV-1 p24 Ag and/or HIV-1/HIV-2 Ab not detected.A test result that is nonreactive does not exclude thepossibility of exposure to or infection with HIV-1 and/orHIV-2. Nonreactive results in this assay for individualswith prior exposure to HIV-1 and/or HIV-2 may be due toantigen and antibody levels that are below the limit ofdetection of this assay.[employer] HIV Ag/Ab Combo assay result andsupplemental assay results should be interpreted inconjunction with the patient's clinical presentation,history and other laboratory results. If the results areinconsistent with clinical evidence, additional testing issuggested to confirm the result. 10/08/2023 3:40 PM EST 10/08/2023 3:45 PM EST Generic External Data Provider LAB BLOOD ORDERAB LES Final Result [facility] [address] [place] [phone] [phone] * Pap Smear (02/28/2022) Pap Negative for intraephithelial lesion or malignancy Negative for intraephithelial lesion or malignancy, Other HPV Undetected Historical Provider HEALTH MAINTENANCE Final Result from Last 3 Months or Most Recently Relevant to Health Maintenance Insurance [facility] C[facility] Care Teams Research Quality Assurance Specialist Relationship Specialty Start Date End Date Suzy Mabry MD [address] [place] [phone] PCP - General Family Medicine 10/05/18
--- OUTSIDE RECORDS SUMMARY | 2024-12-07 18:11 | XMS_ITS | Encounter Summary ---
Author Organization [employer] Address [address] [facility] 7t [place] [address] Care Team Providers Care Accredited Legal Secretary Name Role Phone Suzy Mabry MD Primary Care Provider [phone] Reason for Referral * Consultation (Routine) - Closed Specialty Diagnoses / Procedures Referred By Contac t Referred To Contact Optometry Diagnoses Visual impairment Suzy Mabry MD [address] [place] [address] Phone: tel: fax: [facility] OPTOMETRY [address] [place] [address] Phone: tel: fax: Referral ID Status Reason Start Date Expiration Date V isits Requested Visits Authorized [id number] Closed Consult and Treat 08/02/2024 08/02/2025 1 1 Encounter Details Date Type Department Care Team (Late st Contact Info) Description 07/26/2024 Orders Only [facility] MEDICINE [address] [place] [phone] Suzy Mabry MD [address] [place], [place] [phone] Visual impairment (Primary Dx) Social History Tobacco [...] Associated Diagnoses Orde r Schedule Referral to [facility] Eye Care Outpatient Referral Routine Visual impairment Expected: 08/02/2024 (Approximate), Expires: 08/02/2025 documented as of this encounter Visit Diagnoses Diagnosis Visual impairment- Primary Unspecified visual loss documented in this encounter Additional Health Concerns Assessment Noted Time PHQ-9 Depression Total Score: 0 04/09/20 23 11:11 AM EDT documented as of this encounter Care Teams Accredited Legal Secretary Relationship Specialty Start Date End Date Suzy Mabry MD [address] [place] [address] PCP - General Family Medicine 10/05/18 documented as of this encounter
--- OUTSIDE RECORDS SUMMARY | 2024-12-07 18:11 | XMS_ITS | Encounter Summary ---
Author Organization [employer] Address [address] [facility] [address] [place] [address] Care Team Providers Care Dock Supervisor Name Role Phone Suzy Mabry MD Primary Care Provider [phone] Encounter Details Date Type Department Care Team (Late st Contact Info) Description 04/16/2023 Orders Only [facility] [address] [place], [place] [phone] Suzy Mabry MD [address] [place], [place] [phone] Social History Tobacco Use Types Packs/Day Years [...] documented as of this encounter Care Teams Dock Supervisor Relationship Specialty Start Date End Date Suzy Mabry MD [address] [place] [address] PCP - General Family Medicine 10/05/18 documented as of this encounter
--- OUTSIDE RECORDS SUMMARY | 2024-12-07 18:11 | XMS_ITS | Data Portability ---
Demographics Address [address] [place] [address] Home Phone Mobile Phone Email Address Preferred Language es Marital Status Domestic partner Uatsdin Affiliation Unknown Race Unknown Additional Race(s) Other Race Ethnic Group or Author Organization [facility], Allergy Address [address] [address] Care Team Providers Care Tire Mounter Name Role Phone SANJUANITA JOSEPHA Primary Care Provider Assessment Encounter Date Assessment Date Assessment LastModified [...] Imaging CT, sinuses, w/o contrast 2023 024 [email or web address] [facility] Centralized Scheduling[facility] [address] [place] [address], [id number], 4 10:35:17 Medication Orders Mary Allergy 180 mg tablet 2023 025 [facility]armacy #2020, [address] [facility], [place], [address], 5 11:09:21 Patient TargetsNo targets recorded. Patient [...] Details Recorded Time Mild intermitt ent asthma 453636636 Active 2015 Mild intermitt ent asthma, uncomplic ated; Note: Date Diagnosed : 12/07/2015 12:16 PM (J45.20) Not Available [facility] 4 03:23:42 Allergic rhinitis 30149033 Active 2015 Allergic rhinitis: Due to other allergen; Note: Date Diagnosed : 05/08/2016 4:32 PM (477.8) Other allergic rhinitis; Note: Date Diagnosed : 12/07/2015 12:35 PM (J30.89) ; Start Date : 6 Not Available [facility] 4 03:23:42 Acute upper respirato ry infection 36899815 Active 2015 Upper respirato ry disease, acute; Note: Date Diagnosed : 02/21/2016 11:24 AM (J06.9) Not Available [facility] 4 03:23:42 Hypertrop hy of nasal turbinate s 73401932 Active 2015 Hypertrop hy of nasal turbinate s; Note: Date Diagnosed : 12/07/2015 12:20 PM (J34.3) Not Available [facility] 4 03:23:42 Atypical facial pain 31257993 Active 2023 MARYLU BILLS MD [address] [place] [address], [place], [address] , [facility] 4 09:30:36 Deviated nasal septum 265016046 Active 2023 MARYLU BILLS MD [address] [facility],[place] [address], [facility] [place], [address] , [facility] 4 05:49:37 Cyst of maxillary sinus 214853191 Active 2023 MARYLU BILLS MD 100 [facility],[place] [address], [facility] [place], [address] , [facility] 4 05:49:43 Bilateral tinnitus 83422511536 02 Active 2024 Gerardo GARZA [address] [facility],[place] [address], [facility] [place], [address] , [facility] - [facility] 5 10:59:05 Problem Notes None recorded. Procedures Surgical History Date Name Laterality Status Provider Name and Address Organization Details Recorded Time 5 Comp Audio with Tymps (68368 & 58552) completed Gerardo GARZA [address] [facility],[place] [address], [place], [address], [facility] 10/18/2024 10:58:40 JMSNasal/Sinus Endoscopy completed MARYLU BILLS MD [address] [facility],[place] [address], [place], [address], [facility] [...] both nostrils 10/18 completed Medicati on ID: [id number] P rescribe d By Name: Cristiane Royal [...] 2 spray 10/18 completed Medicati on ID: [id number] D uration Value: 3 Prescri bed By [...] intramus cularly 10/18 completed Medicati on ID: [id number] D uration Value: 180 Prescri bed By Name: Sreedhar soares M.D. Bra nd Name: Sharath Araujo Se nd Method: E-Prescr ibed Sub s Allowed: subs OK Medic ationGen ericName : Sharath 2-Jermaine Not Available Not Available Not Available Vitals Date Recorded Body height Body mass index (BMI) Body weight Provider Name and Address Organization Details Last Updated DateTime 08/11/2024 165.1 cm 25 kg/m2 57461.86 g Selina Guzman [facility] 08/11/2024 09:12:02 Date Recorded Body height Body mass index (BMI) Body weight Provider Name and Address Organization Details Last Updated DateTime 10/18/2024 165.1 cm 25 kg/m2 76195.65 juan luis Selina Guzman [facility] [...] SNOMED-CT Code Diagnosis ICD10 Code Diagnosis Note [id number] MARYLU BILLS MD [facility] on [address] [place] [address] 08/11/2024 08:54:29 08/11/2024 09:39:51 Allergic rhinitis 38246619 J30.9 Atypical facial pain 713 29237 G50.1 Hypertroph y of nasal turbinates 91721737 J34.3 Deviated nasal septum 12 4463370 J34.2 Cyst of [place] xillary sinus 281287672 J34.1 [id number] MARYLU BILLS MD [facility] on [address] [place] [address] 10/18/2024 10:18:43 10/19/2024 08:30:39 Bilateral tinnitus 9387142340 102 H93.13 Audiologic al evaluation results: Right [...] Member ID Guarantor Name 08/11/2024 1 [place] [facility] Irish Kendall [id number] Irish Kendall 10/18/2024 1 [place] [facility] Irish Kendall [id number] Irish Kendall Notes Date Note Type Note [...] since then. Has 2 dogs at home. [facility] trait PV (2015):. Patient presents for long standing hx of chronic nasal congestion refractory to antihistamines and nasal steroids.Hx of mild asthma, last albuterol use in October. No preventative medications. Allergy testing showed rx to dust, mold, cat grasses, dog, trees, ragweed, andcockroach. She has had minimal improvement with Astelin. MARYLU BILLS MD 100 [facility],[address], [address], [facility] [...] since then. Has 2 dogs at home. [facility] trait PV (2016):. Patient presents for long standing hx of chronic nasal congestion refractory to antihistamines and nasal steroids.Hx of mild asthma, last albuterol use in October. No preventative medications. Allergy testing showed rx to dust, mold, cat grasses, dog, trees, ragweed, andcockroach. She has had minimal improvement with Astelin. MARYLU BILLS MD 100 [facility],[address], [address], [facility] 10/24/2024 04:45:07 OBGyn Episode No OBEpisode recorded.
--- OUTSIDE RECORDS SUMMARY | 2024-12-07 18:11 | XMS_ITS | Encounter Summary ---
Author Organization [facility] Address [address] [place] [address] Phone Care Team Providers Care Qualitative Executive Researcher Name Role Phone Rigoberto Carias MD Primary Care Provider [phone] Encounter Details Date Type Department Care Team (Late st Contact Info) Description 11/05/2011 Documentation [facility] [place] [facility] [address] [place] [address] Family Medicine, Physician [address] [place] [address] Social History Tobacco Use Types [...] on filedocumented in this encounter Care Teams Qualitative Executive Researcher Relationship Specialty Start Date End Date Rigoberto Carias MD [address] [facility] [place] [address] PCP - General 05/15/17 03/11/23 documented as of this encounter
--- OUTSIDE RECORDS SUMMARY | 2024-12-07 18:11 | XMS_ITS | Encounter Summary ---
Author Organization [facility] Address [address] [place] [address] Phone Care Team Providers Care Company Pilot Name Role Phone Rigoberto Carias MD Primary Care Provider [phone] Encounter Details Date Type Department Care Team (Late st Contact Info) Description 05/18/2012 Documentation [facility] [place] [address] [place] [address] Family Medicine, Physician [address] [place] [address] Social History Tobacco Use Types [...] on filedocumented in this encounter Care Teams Company Pilot Relationship Specialty Start Date End Date Rigoberto Carias MD [address] [facility] [place] [address] PCP - General 05/15/17 03/11/23 documented as of this encounter
--- OUTSIDE RECORDS SUMMARY | 2024-12-07 18:11 | XMS_ITS | Clinical Summary ---
Author Organization [facility] Address [address] [place] [address] Phone Care Team Providers Care Wood Heel Back Liner Name Role Phone Unavailable Primary Care Provider [...]
--- OUTSIDE RECORDS SUMMARY | 2024-12-07 18:11 | XMS_ITS | Encounter Summary ---
Author Organization [employer] Address [address] [place] [address] Care Team Providers Care Fitter Hand Name Role Phone Suzy Mabry MD Primary Care Provider [phone] Encounter Details Date Type Department Care Team (Late st Contact Info) Description 05/01/2023 Abstract [facility] [address] [place], [place] [phone] Suzy Mabry MD [address] [place], [place] [phone] Social History Tobacco Use Types Packs/Day Years [...] documented as of this encounter Care Teams Fitter Hand Relationship Specialty Start Date End Date Suzy Mabry MD [address] [place] [address] PCP - General Family Medicine 10/05/18 documented as of this encounter
[2024-12-20 12:35] VITALS: BMI 25.3
[2024-12-22 12:41] VITALS: BP 131/85; PULSE 84; RESP 18; TEMP 36.9; O2SAT 99
[2024-12-22 12:42] VITALS: BMI 25.3
[2024-12-22] MEDS: Lactated Ringers 1,000 ML 100 ML IVCONT (12:56)
[2024-12-22 12:58] LABS: UPreg QC Valid YES; Urine Pregnancy NEGATIVE (NEGATIVE)
--- NOTE | 2024-12-22 13:31 | P.CONAN_ITS ---
Documented by User: Shanae Mendoza NP 12/21/24 10:13 HPI - Anesthesia Eval Consult details Narrative: 39yo F for D&C Hysteroscopy,possible polypectomy,possible myomectomy PMFSH Active Problems Active Problems: All Active Problems Abnormal uterine bleeding (AUB) (Acute) Abnormal ultrasound of endometrium (Acute) Possible exposure to STD (Acute) UTI (urinary tract infection) (Acute) Encounter for screening examination for sexually transmitted disease (Acute) Bleeding hemorrhoids (Acute) Hemorrhoids (Acute) Cervical cancer screening (Acute) Well woman exam with routine gynecological exam (Acute) Postcoital bleeding (Acute) Uterine fibroid (Acute) Family history of ovarian cancer (Acute) Breast pain, left (Acute) Family history of breast cancer (Acute) Past Medical History Medical History (Updated 11/30/24 @ 11:49 by Amadeo Mays MD) Possible exposure to STD Bleeding hemorrhoids Asthma Family history of ovarian cancer Family history of breast cancer Hx of lipoma Family History Family History Paternal Aunt Hx of breast cancer Hx of ovarian cancer Maternal Aunt History of uterine cancer Father History of prostate cancer Paternal Grandmother History of colon cancer Paternal Uncle History of prostate cancer Surgical History Surgical History History of hernia surgery H/O tubal ligation Social History Social History Alcohol intake: never Patient Tobacco Use Status: Never used Tobacco Have you been hit, kicked, punched, or otherwise hurt by someone within the past year? If so, by whom?: No Are you DNR?: No Advance Directives: No Advance Directives Information Provided: Yes Nutrition Risks: No Nutritional Risk Patient : No FDLMP: december 05 Sexual orientation: Straight/Heterosexual Gender identity: Female Meds Allergies Allergy/AdvReac Type Severity Reaction Status Date / Time No Known Allergies Allergy Verified 11/30/24 11:36 [No Known Allergies*] Home Medications ?Medication ?Instructions ?Recorded ?Confirmed ?Last Taken ?Type multivitamin (Daily Multi-Vitamin 1 tab PO DAILY 06/27/24 12/22/24 Unknown History tablet) Exam Height,Weight and Vital Signs: Height 5 ft 5 in Weight 68.946 kg Assessment and Plan Assessment Anesthesia Assessment: Chart Reviewed Documented by User: Charity Sanches DO 12/22/24 13:32 [facility] Past Medical History Medical History (Updated 11/30/24 @ 11:49 by Amadeo Mays MD) Possible exposure to STD Bleeding hemorrhoids Asthma Family history of ovarian cancer Family history of breast cancer Hx of lipoma Family History Family History Paternal Aunt Hx of breast cancer Hx of ovarian cancer Maternal Aunt History of uterine cancer Father History of prostate cancer Paternal Grandmother History of colon cancer Paternal Uncle History of prostate cancer Family history of problems with anesthesia: No Surgical History Surgical History History of hernia surgery H/O tubal ligation History of Problems with Anesthesia: No Social History Social History Alcohol intake: never Patient Tobacco Use Status: Never used Tobacco Have you been hit, kicked, punched, or otherwise hurt by someone within the past year? If so, by whom?: No Are you DNR?: No Advance Directives: No Advance Directives Information Provided: Yes Nutrition Risks: No Nutritional Risk Patient : No FDLMP: december 05 Sexual orientation: Straight/Heterosexual Gender identity: Female Meds Allergies Allergy/AdvReac Type Severity Reaction Status Date / Time No Known Allergies Allergy Verified 11/30/24 11:36 [No Known Allergies*] Home Medications ?Medication ?Instructions ?Recorded ?Confirmed ?Last Taken ?Type multivitamin (Daily Multi-Vitamin 1 tab PO DAILY 06/27/24 12/22/24 Unknown History tablet) Exam Exam Date and Time: 12/22/24 1330 Height,Weight and Vital Signs: Vital Signs Temperature 98.4 F 12/22/24 12:41 Pulse Rate 84 12/22/24 12:41 Respiratory Rate 18 03/20/25 12:41 Blood Pressure 131/85 12/22/24 12:41 Pulse Oximetry 99 12/22/24 12:41 Oxygen Delivery Method Room Air 12/22/24 12:41 Temperature 98.4 F 12/22/24 12:41 Pulse Rate 84 12/22/24 12:41 Respiratory Rate 18 12/22/24 12:41 Blood Pressure 131/85 12/22/24 12:41 Pulse Oximetry 99 12/22/24 12:41 Oxygen Delivery Method Room Air 12/22/24 12:41 Height 5 ft 5 in Weight 68.946 kg Airway Mallampati Class: II TM Dist: >3cm Neck ROM: Full Loose/Missing/Broken Teeth: No (patient denies any loose or broken teeth) Heart: S1S2 Lungs: CTAB Assessment and Plan Assessment Anesthesia Assessment: Anesthesia Plan Discussed and Chart Reviewed Final Anesthetic Review Family History of Problems with Anesthesia: No History of Problems with Anesthesia: No NPO: Yes ASA Class: II Final Preanesthetic Review: No Changes in Pt Med Stat, Meds/Allgs Chart Reviewed, Consent Obtained/Reviewed and Anes Risks/Benef Reviewed Patient Risk: Low Procedure Risk: Low Anesthetic Plan Anesthetic Plan: GA and Agree w/ Assess. and Plan Disposition: Standard PACU
--- NOTE | 2024-12-22 14:36 | MHC.SHP ---
Pre-Procedural Eval Section A - 24 Hr Update-Section A only Date of Service: 12/22/24 The patient is an INPATIENT: No Changes since office visit: No Cold of Flu in the past 2 weeks, No New Medical Problems, No Changes in Medication and No Patient answered all questions The patient has been examined within 24 hours of the surgical procedure. The History & Physical has been completed within 30 days and I have reviewed it.: Yes Section B - Complete if H&P > 30 days Chief Complaint: Abnormal findings on diagnostic imaging Allergies: Allergies Allergy/AdvReac Type Severity Reaction Status Date / Time No Known Allergies Allergy Verified 11/30/24 11:36 [No Known Allergies*] Plan Diagnosis/Plan: Unchanged I have reviewed the history and physical and performed a pertinent physical examination on my patient. No changes have occurred unless specified. Time Spent With Patient Time: Total time managing care of this patient today ____ minutes.
--- NOTE | 2024-12-22 14:57 | PM.OP ---
Brief Operative Note Date of Service: 12/22/24 Pre-op diagnosis: Abnormal endometrial by ultrasound Post-op diagnosis: same (Normal endometrial cavity) Procedure: Hysteroscopy D&C Surgeon: Amadeo Mays MD Anesthesia: GLMA Was an Bow Maker Gift Wrapping used for this Procedure?: No Estimated blood loss (mL): 0 Pathology: other (Endometrial Scrapping) Condition: stable Disposition: PACU
--- NOTE | 2024-12-22 14:58 | W.PM.OPN ---
Operative Note Operative Note Date of Service: 12/22/24 Narrative: Preop Diagnosis: Abnormal endometrium by ultrasound Operation: Diagnostic Hysteroscopy, Dilataion & Curettage Post Op Diagnosis: Normal endometrial and endocervical cavity, no evidence of pathology QBL: Minimal Anesthesia: GLMA Surgeon: Amadeo Mays MD Dirt Shoveler: None Complication: None Pathology: Endometrial Scrapings Procedure: The patient was put in the dorsal lithotomy position, scrubbed, and draped in the usual manner. A sterile speculum was inserted in the patient's vagina. The anterior lip of the cervix was grasped with a single tooth tenaculum. The cervix was dilated up to 5 mm, then the scope was inserted in the patient's uterus. Inspection revealed normal endocervical & endometrial cavity with no evidence of pathology. The scope was taken out of the uterine cavity , then sharp curetting was carried on with no complications. At the end of the procedure, all instruments were taken out of the patient uterine and vaginal cavity. The single tooth tenaculum was removed and homeostasis was assured using pressure. The patient tolerated the procedure well and was transferred to the PACU in a stable condition.
[2024-12-22 15:06] VITALS: BP 110/65; PULSE 80; RESP 12; TEMP 36.1; O2SAT 97
[2024-12-22 15:11] VITALS: BP 114/67; PULSE 73; RESP 16; O2SAT 100
[2024-12-22 15:16] VITALS: BP 119/66; PULSE 72; RESP 16; O2SAT 100
[2024-12-22 15:21] VITALS: BP 112/67; PULSE 85; RESP 18; O2SAT 99
[2024-12-22 15:36] VITALS: BP 110/66; PULSE 75; RESP 16; TEMP 36.1; O2SAT 97
== END 2024-12-22 15:59 | disposition home or self-care (01) ==
PROVIDERS: PCP Family Medicine; Visit Provider Obstetrics & Gynecology
PROC: 0UDB8ZZ Extraction of Endometrium, Via Natural or Artificial Opening Endoscopic (ICD-10-PCS; CPT 58558; principal; 2024-12-22 14:30)
DX: R93.5 Abnormal findings on diagnostic imaging of other abdominal regions, including retroperitoneum (principal); N93.9 Abnormal uterine and vaginal bleeding, unspecified; N85.4 Malposition of uterus; Z80.41 Family history of malignant neoplasm of ovary; Z80.3 Family history of malignant neoplasm of breast; J45.909 Unspecified asthma, uncomplicated; K64.8 Other hemorrhoids; Z79.899 Other long term (current) drug therapy; Z98.51 Tubal ligation status; Z98.890 Other specified postprocedural states
CPT/HCPCS: 58558; 81025; 88305; J1100; J2003; J2250; J2405; J2704; J3010

== ENCOUNTER → 2024-12-22 12:29 | Outpatient (BNV) | payer MEDICAID, SELFPAY | PROVIDERS: PCP Family Medicine; Visit Provider Obstetrics & Gynecology | DX: R93.89 Abnormal findings on diagnostic imaging of other specified body structures (principal) | CPT/HCPCS: 58558 ==

== ENCOUNTER 2025-01-05 14:55 | Outpatient (AMB) | payer MEDICAID, SELFPAY ==
--- NOTE | 2025-01-05 14:56 | A.OFFVIS_ITS ---
Intake Visit Reasons: post op Learning Solutions Specialist: Learning Solutions Specialist Present (Melissa) Accompanied by: Self / Same As Patient Allergies No Known Allergies [No Known Allergies*] Allergy (Verified 01/05/25 14:57) HPI Comments Details: The patient is presenting post hysteroscopy D&C no complaints minimal vaginal bleeding no feverishness chills or abdominal pain. The pathology showed the following: Endometrium, curettage: - Proliferative endometrium; no atypia or hyperplasia identified. - Few strips of endocervical epithelium within normal limits The following workup was done.: H&H= 11.8/35.7 TSH, GC and chlamydia were negative. Co testing was done in 03/26 and was negative. Pelvic ultrasound showed the following: IMPRESSION: 1. Previously identified 0.4 cm fibroid not identified on the current exam. Heterogeneous uterine echotexture. 2. Endometrial thickness is 12 mm. A 7 x 6 x 7 mm complex cystic collection with echogenic wall is identified within the endometrium and was not identified on the prior study. 3. Gynecologic consultation recommended to determine further management including possible biopsy. Recommend followup ultrasound in 6-8 weeks. [facility] Medical History Possible exposure to STD Bleeding hemorrhoids Asthma Family history of ovarian cancer Family history of breast cancer Hx of lipoma Surgical History History of hernia surgery H/O tubal ligation Family History Paternal Aunt Hx of breast cancer Hx of ovarian cancer Maternal Aunt History of uterine cancer Father History of prostate cancer Paternal Grandmother History of colon cancer Paternal Uncle History of prostate cancer Social History Alcohol intake: never Patient Tobacco Use Status: Never used Tobacco Sexual orientation: Straight/Heterosexual Gender identity: Female Female Reproductive History Menstrual Age of Menarche: 10 Review of Systems Const All systems reviewed & are unremarkable except as noted in HPI and below Reports as per HPI and Reports no additional complaints GI Reports no additional complaints Reports no additional complaints Assessment & Plan Assessment & Plan (1) Abnormal uterine bleeding (AUB): Code(s): N93.9 - Abnormal uterine and vaginal bleeding, unspecified Category: Medical Plan: Discussed with the patient the intraoperative findings, pathology results. Discussed with the patient the results of the work up done and options of treatment including Lysteda, control pills, Mirena IUD, endometrial ablation and hysterectomy. All pros, cons, risks and benefits if each option was discussed with the patient and the patient decided to go ahead with Mirena IUD so a more detailed discussion about it was conducted including mechanism of action, risks (uterine perforation, infection, injury to bladder, bowel, displacement, and others) benefits (hypo menorrhea, amenorrhea, ...). GC/CT were taken and were negative and the patient was instructed to schedule Mirena IUD insertion on day 1-5 of next cycle . All questions answered, the patient verbalized understanding Coding Level of Care Code Est Pt Level 3 (95809) Diagnoses Abnormal uterine bleeding (AUB) N93.9
--- OUTSIDE RECORDS SUMMARY | 2025-01-05 16:25 | XMS_ITS | Data Portability ---
Demographics Address [address] [place] [address] Home Phone Mobile Phone Email Address Preferred Language es Marital Status Domestic partner Mandaeism Affiliation Unknown Race Unknown Additional Race(s) Other Race Ethnic Group or Author Organization [facility], Allergy Address [address] [address] Care Team Providers Care Marketing Rep Name Role Phone SANJUANITA JOSEPHA Primary Care [...] CT, sinuses, w/o contrast 2023 024 aysephilip [facility] Central[facility]uling([facility] [address] [place] [address], [address], 4 10:35:17 Medication Orders Mary Allergy 180 mg tablet 2023 025 [facility] #[id number], [address] [facility], [place], [address], 5 11:09:21 Patient TargetsNo targets recorded. Patient [...] Details Recorded Time Mild intermitt ent asthma 273607533 Active 2015 Mild intermitt ent asthma, uncomplic ated; Note: Date Diagnosed : 12/07/2015 12:16 PM (J45.20) Not Available [facility] 4 03:23:42 Allergic rhinitis 57540843 Active 2015 Allergic rhinitis: Due to other allergen; Note: Date Diagnosed : 05/08/2016 4:32 PM (477.8) Other allergic rhinitis; Note: Date Diagnosed : 12/07/2015 12:35 PM (J30.89) ; Start Date : 6 Not Available [facility], [facility] 4 03:23:42 Acute upper respirato ry infection 89253561 Active 2015 Upper respirato ry disease, acute; Note: Date Diagnosed : 02/21/2016 11:24 AM (J06.9) Not Available [facility], [facility] 4 03:23:42 Hypertrop hy of nasal turbinate s 67471877 Active 2015 Hypertrop hy of nasal turbinate s; Note: Date Diagnosed : 12/07/2015 12:20 PM (J34.3) Not Available [facility], [facility] 4 03:23:42 Atypical facial pain 98706846 Active 2023 MARYLU BILLS MD [address] [place] [address], [place], [address] , [facility] - [facility] 4 09:30:36 Deviated nasal septum 975504693 Active 2023 MARYLU BILLS MD [address] [facility],[place] [address], [facility] [place], [address] , [facility] - [facility] 4 05:49:37 Cyst of maxillary sinus 785699866 Active 2023 MARYLU BILLS MD [address] [facility],[place] [address], [facility] [place], [address] , [facility] - [facility] 4 05:49:43 Bilateral tinnitus 37808580010 02 Active 2024 Gerardo GARZA [address] [facility],[place] [address], [facility] [place], [address] , [facility] - [facility] 5 10:59:05 Problem Notes None recorded. Procedures Surgical History Date Name Laterality Status Provider Name and Address Organization Details Recorded Time 5 Comp Audio with Tymps (53795 & 51708) completed Gerardo GARZA [address] [facility],[place] [address], [place], [address], [facility] 10/18/2024 10:58:40 JMSNasal/Sinus Endoscopy completed MARYLU BILLS MD [address] [facility],[place] [address], [place], [address], [facility] - [facility] 08/11/2024 09:30:24 Imaging Results Imaging Date [...] both nostrils 10/18 completed Medicati on ID: [id number] P rescribe d By Name: Cristiane Royal [...] 2 spray 10/18 completed Medicati on ID: [id number] D uration Value: 3 Prescri bed By [...] intramus cularly 10/18 completed Medicati on ID: [id number] D uration Value: 180 Prescri bed By Name: Sreedhar soares M.D. Bra nd Name: Sharath Araujo Se nd Method: E-Prescr ibed Sub s Allowed: subs OK Medic ationGen ericName : Sharath 2-Jermaine Not Available Not Available Not Available Vitals Date Recorded Body height Body mass index (BMI) Body weight Provider Name and Address Organization Details Last Updated DateTime 08/11/2024 165.1 cm 25 kg/m2 58142.86 g Selina Guzman [facility] 08/11/2024 09:12:02 Date Recorded Body height Body mass index (BMI) Body weight Provider Name and Address Organization Details Last Updated DateTime 10/18/2024 165.1 cm 25 kg/m2 05515.65 juan luis Selina Guzman [facility] 10/18/2024 11:08:54 Social History None recorded. [...] SNOMED-CT Code Diagnosis ICD10 Code Diagnosis Note [id number] MARYLU BILLS MD [facility] on [address] [place] [address] 08/11/2024 08:54:29 08/11/2024 09:39:51 Allergic rhinitis 56310477 J30.9 Atypical facial pain 713 48683 G50.1 Hypertroph y of nasal turbinates 77958042 J34.3 Deviated nasal septum 12 7117482 J34.2 Cyst of [place] xillary sinus 538716689 J34.1 [id number] MARYLU BILLS MD [facility] on [address] [place] [address] 10/18/2024 10:18:43 10/19/2024 08:30:39 Bilateral tinnitus 6620056273 102 H93.13 Audiologic al evaluation results: Right [...] Member ID Guarantor Name 08/11/2024 1 [place] [facility] Irish Kendall [id number] Irish Kendall 10/18/2024 1 [place] [facility] Irish Kendall [id number] Irish Kendall Notes Date Note Type Note [...] since then. Has 2 dogs at home. [facility] trait PV (2015):. Patient presents for long standing hx of chronic nasal congestion refractory to antihistamines and nasal steroids.Hx of mild asthma, last albuterol use in October. No preventative medications. Allergy testing showed rx to dust, mold, cat grasses, dog, trees, ragweed, andcockroach. She has had minimal improvement with Astelin. MARYLU BILLS MD [address] [facility],[address], [address], [facility] 08/19/2024 05:50:17 10/18/2024 text/html Did not [...] since then. Has 2 dogs at home. [facility] trait PV (2016):. Patient presents for long standing hx of chronic nasal congestion refractory to antihistamines and nasal steroids.Hx of mild asthma, last albuterol use in October. No preventative medications. Allergy testing showed rx to dust, mold, cat grasses, dog, trees, ragweed, andcockroach. She has had minimal improvement with Astelin. MARYLU BILLS MD [address] [facility],[address], [address], [facility] - [facility] 10/24/2024 04:45:07 OBGyn Episode No OBEpisode recorded.
--- OUTSIDE RECORDS SUMMARY | 2025-01-05 16:25 | XMS_ITS | Encounter Summary ---
Author Organization [employer] Address [address] [facility] [address] 7t [place] [address] Care Team Providers Care Surgical Instrument Technician Name Role Phone Suzy Mabry MD Primary Care Provider [phone] Encounter Details Date Type Department Care Team (Late st Contact Info) Description 04/16/2023 Orders Only [facility] MEDICINE [address] [place], [place] [phone] Suzy Mabry MD [address] [place], [place] [phone] Social History Tobacco Use Types Packs/Day Years [...] documented as of this encounter Care Teams Surgical Instrument Technician Relationship Specialty Start Date End Date Suzy Mabry MD [address] [place] [address] PCP - General Family Medicine 10/05/18 documented as of this encounter
--- OUTSIDE RECORDS SUMMARY | 2025-01-05 16:25 | XMS_ITS | Encounter Summary ---
Author Organization [employer] Address [address] [place] [address] Care Team Providers Care Supervisor Boiler Repair Name Role Phone Suzy Mabry MD Primary Care Provider [phone] Encounter Details Date Type Department Care Team (Late st Contact Info) Description 05/01/2023 Abstract [facility] MEDICINE 230 [place], [place] [phone] Suzy Mabry MD [address] [place], [place] [phone] Social History Tobacco Use Types Packs/Day Years [...] documented as of this encounter Care Teams Supervisor Boiler Repair Relationship Specialty Start Date End Date Suzy Mabry MD [address] [place] [address] PCP - General Family Medicine 10/05/18 documented as of this encounter
--- OUTSIDE RECORDS SUMMARY | 2025-01-05 16:25 | XMS_ITS | Encounter Summary ---
Author Organization [employer] Address [address] [facility] 7t [place] [address] Care Team Providers Care Carpenters Supervisor Name Role Phone Suzy Mabry MD Primary Care Provider [phone] Reason for Referral * Consultation (Urgent) - Closed Specialty Diagnoses / Procedures Referred By Contjamila t Referred To Contact Obstetrics and Gynecology Diagnoses Encounter for well woman exam with routine gynecological exam Pelvic pain Suzy Mabry MD [address] [place] [address] Phone: tel: fax: [facility] Referral ID Status Reason Start Date Expiration Date V isits Requested Visits Authorized [id number] Closed Specialty Services Required 06/27/2024 06/27/2025 9 9 Encounter Details Date Type Department Care Team (Late st Contact Info) Description 06/28/2024 Orders Only [facility] MEDICINE [address] [place] [address] [phone] Suzy Mabry MD [address] [place], [place] [phone] Encounter for well woman exam with routine [...] Reticulocytes Absolute 0.069 0.026 - 0.095 X10*6/uL [facility] Immature Retic Fraction 16.3(H) 3.0 - 15.9 % [facility] Retic HGB Equivalent 29.1(L) 30.0 - 35.0 pg [facility] Reticulocyte Percent 1.5 0.5 - 1.8 % [facility] Blood Venous blood specimen / Unknown 07/21/2024 2:50 PM EDT 07/21/2024 4:18 PM EDT Suzy Mabry MD LAB BLOOD ORDERABLES Final Resul t Performing Organization Address [facility] Co de Phone Number [facility] [address] [place] [phone] * Iron And Total Iron Binding Capacity (07/21/2024 2:50 PM EDT) Iron 65 30 - 160 mcg/dL [facility] Total Iron Binding Capacity 292 228 - 428 mcg/dL [facility] Percent Iron Saturation 22 15 - 50 % [facility] Unsaturated Iron Binding 227 ug/dL [facility] Blood Venous blood specimen / Unknown 07/21/2024 2:50 PM EDT 07/21/2024 4:18 PM EDT Suzy Mabry MD LAB BLOOD ORDERABLES Final Resul t Performing Organization Address [facility] Co de Phone Number [facility] [address] [place] [phone] * Ferritin (07/21/2024 2:50 PM EDT) Ferritin 26 10 - 122 ng/mL [facility] Blood Venous blood specimen / Unknown 07/21/2024 2:50 PM EDT 07/21/2024 4:18 PM EDT us Suzy Mabry MD LAB BLOOD ORDERABLES Final Resul t [facility] [address] [place] [address] [phone] * (ABNORMAL) CBC auto differential (07/21/2024 2:50 PM EDT) White Blood Count 9.4 4.8 - 10.8 X10*3/uL [facility] Red Blood Count 4.68 4.20 - 5.50 X10*6/uL [facility] Hemoglobin 11.8(L) 12.0 - 16.0 g/dl [facility] Hematocrit 35.7(L) 37.0 - 47.0 % [facility] Mean Corpuscular Volume 76.3(L) 80.0 - 98.0 fL [facility] Mean Corpuscular Hemoglobin 25.2(L) 27.0 - 33.0 pg [facility] Mean Corpuscular HGB Conc 33.1 31.0 - 35.0 g/dl [facility] Red Cell Distribution Width 13.1 11.0 - 16.0 % [facility] Platelet Count 244 160 - 400 X10*3/uL [facility] Mean Platelet Volume 11.4 9.4 - 12.3 fL [facility] Neutrophils Percent Auto 66.0 45 - 73 % [facility] Imm Gran Pct Auto 0.3 0.0 - 0.4 % [facility] Lymphocytes Percent Auto 26.3 20 - 40 % [facility] Monocytes Percent Auto 5.3 2 - 11 % [facility] Eosinophils Percent Auto 1.4 0 - 4 % [facility] Basophils Percent Auto 0.7 0 - 2 % [facility] NRBC Pct Auto 0.0 0.0 - 0.2 /100WBC [facility] Neutrophils Absolute Auto 6.2 2.0 - 8.3 x10*3/uL [facility] Imm Gran Abs Auto 0.03 0.00 - 0.03 X10*3/uL [facility] Lymphocytes Absolute Auto 2.5 1.2 - 4.9 X10*3/uL [facility] Monocytes Absolute Auto 0.5 0.1 - 1.2 X10*3/uL [facility] Eosinophils Absolute Auto 0.1 0.0 - 0.4 X10*3/uL [facility] Basophils Absolute Auto 0.1 0.0 - 0.2 X10*3/uL [facility] NRBC Abs Auto 0.000 0.0 - 0.012 X10*3/uL [facility] Blood Venous blood specimen / Unknown 07/21/2024 2:50 PM EDT 07/21/2024 4:18 PM EDT us Suzy Mabry MD LAB BLOOD ORDERABLES Final Resul t Performing Organization Address City/State/[facility] Co de Phone Number [facility] [address] [place] [address] [phone] documented in this encounter Visit Diagnoses [...] documented as of this encounter Care Teams Carpenters Supervisor Relationship Specialty Start Date End Date Suzy Mabry MD [address] [place] [phone] PCP - General Family Medicine 10/05/18 documented as of this encounter
--- OUTSIDE RECORDS SUMMARY | 2025-01-05 16:25 | XMS_ITS | Encounter Summary ---
Author Organization [employer] [facility] Address [address] [facility] [address] 7t [place] [address] Care Team Providers Care Multimedia Assistant Name Role Phone Suzy Mabry MD Primary Care Provider [phone] Encounter Details Date Type Department Care Team (Late st Contact Info) Description 07/06/2023 Abstract [facility] MEDICINE [address] [place] [address] Apple Fuller Social History Tobacco Use Types [...] documented as of this encounter Care Teams Multimedia Assistant Relationship Specialty Start Date End Date Suzy Mabry MD [address] [place] [address] PCP - General Family Medicine 10/05/18 documented as of this encounter
--- OUTSIDE RECORDS SUMMARY | 2025-01-05 16:26 | XMS_ITS | Clinical Summary ---
Author Organization [employer] Address [address] [facility] 7t [place] [address] Care Team Providers Care Fish And Wildlife Biologist Name Role Phone Suzy Mabry MD Primary Care Provider [phone] Allergies No known active allergies Medications cetirizine [...] - patient has fibroid and following with tobacco conditioner - will check anemia and will also [...] Encounters Date Type Department Care Team Description 12/22/2024 Orders Only GENERIC EXTERNAL DATA DEPARTMENT Provider, Generic External Data 12/16/2024 Population Health Risk Score [facility] (C[facility]) Department [address] [address] Provider, Population Health Generic 10/15/2024 Refill [facility] [address] [place], [place] [phone] Suzy Mabry MD Allergic rhinitis, unspecified seasonality, [...] Procedure Name Priority Date/Time Associated Diagnosis Comments HEMATOXYLIN AND EOSIN STAIN Routine 12/22/2024 3:01 PM EDT HCG, QL, URINE Routine 12/22/2024 12:36 PM EDT HEPATITIS C ANTIBODY Routine 10/08/2023 3:40 PM EST HIV 1/2 ANTIGEN/ANTIBODY, FOURTH GENERATION W/RFL Routine 10/08/2023 3:40 PM EST HM PAP/HPV Routine 02/28/2022 from Last 3 Months or Most Recently Relevant to Health Maintenance Results * Hematoxylin and Eosin Stain (12/22/2024 3:01 PM EDT) 12/22/2024 3:01 PM EDT 12/23/2024 8:39 AM EDT [facility] - 12/27/2024 8:20 AM EDT ----- ------- Name: Kendalltawnya BurnsTununak G ?Age/Sex: 39/F ? : 1985 Unit#: [id number] ?? Attend Dr: Amadeo Mays MD ?Re12/22/24 ?Status: DEP SDC ? Location: HO.SSS ?Disch: ? ----- ------- SPEC : [id number] ? RECD: 12/23/24 ? STATUS: ??SOUT ? REQ NUM: [id number] ? LOYD: 12/22/24-1501 ? SUBM DR: Amadeo Mays MD ? ENTERED: ??12/23/24 ?SP TYPE: Surgical ? OTHR DR: Suzy Mabry MD ? ORDERED: ??HE Stain, Gross Micro L4 ? Diagnosis ?? Endometrium, curettage: ?- Proliferative endometrium; no atypia or hyperplasia identified. ?- Few strips of endocervical epithelium within normal limits. ?Clinical History Pre-Op Dx: ??Abnormal diagnostic imaging Post-Op Dx: Normal endometrial cavity ?Microscopic Description Microscopic sections reviewed. ? Material Received ?? EMC ? Gross Description Received in formalin, on Telfa, labeled ?EMC? are fragments of pink- nagel soft tissue mixed with mucus and clotted blood forming an aggregate measuring 4.3 x 3.2 x 0.4 cm in greatest dimension which is wrapped in lens paper and entirely submitted for microscopic examination, multiple pieces in cassettes A1 through A3. ??([facility]) Copies To: ?? Suzy Mabry MD ?? [facility] ?? [address] [facility] ?? [place] [address] ?? [phone] ?? Amadeo Mays MD ?? [facility] ?? [address] ?? [place] [address] ?? [phone] ----- ------- Signed (signature on file) Best Lubin MD 12/27/24819 ? ----- ------- ? END OF REPORT ? us Generic External Data Provider LAB BLOOD ORDERAB LES Final Result [facility] [address] [place] [address] [phone] * HCG, Qualitative, Urine (12/22/2024 12:36 PM EDT) Pathologist [facility] Urine NEGATIVE NEGATIVE [facility] Comment:This test was develo ped to detect early . Falsenegative results may occur after the 5th - 7th week ofpregnancy when using this test method. If clinicallyindicated, consider a serum hCG. 12/22/2024 12:3 6 PM EDT 12/22/2024 12:45 PM EDT Generic External Data Provider LAB URINE ORDERAB LES Final Result Performing Organization Address [facility] Co de Phone Number [facility] [address] [place] [phone] * Hepatitis C Ab (10/08/2023 3:40 PM EST) Pathologist [facility] Hepatitis C Antibody Nonreactive Nonreactive [facility] Comment:Antibodies to HCV no t detected; does not exclude early acuteHCV infection. 10/08/2023 3:40 PM EST 10/08/2023 3:45 PM EST Generic External Data Provider LAB BLOOD ORDERAB LES Final Result Performing Organization Address [facility] Co de Phone Number [facility] [address] [place] [phone] * HIV-1/2 Antigen and Antibodies, Fourth Generation, with Reflexes (10/08/2023 3:40 PM EST) Pathologist [facility] HIV AB/AG Nonreactive Nonreactive [facility] Comment:HIV-1 p24 Ag and/or HIV-1/HIV-2 Ab not detected.A test result that is nonreactive does not exclude thepossibility of exposure to or infection with HIV-1 and/orHIV-2. Nonreactive results in this assay for individualswith prior exposure to HIV-1 and/or HIV-2 may be due toantigen and antibody levels that are below the limit ofdetection of this assay.The [employer] HIV Ag/Ab Combo assay result andsupplemental assay results should be interpreted inconjunction with the patient's clinical presentation,history and other laboratory results. If the results areinconsistent with clinical evidence, additional testing issuggested to confirm the result. 10/08/2023 3:40 PM EST 10/08/2023 3:45 PM EST us Generic External Data Provider LAB BLOOD ORDERAB LES Final Result [facility] [address] [place] [address] [phone] * Pap Smear (02/28/2022) Pap Negative for intraephithelial lesion or malignancy Negative for intraephithelial lesion or malignancy, Other HPV Undetected Historical Provider HEALTH MAINTENANCE Final Result from Last 3 Months or Most Recently Relevant to Health Maintenance Insurance [facility] C3 Care Teams Fish And Wildlife Biologist Relationship Specialty Start Date End Date Suzy Mabry MD [address] [place] [address] [phone] PCP - General Family Medicine 10/05/18
--- OUTSIDE RECORDS SUMMARY | 2025-01-05 16:26 | XMS_ITS | Clinical Summary ---
Author Organization [facility] Address [address] [place] [phone] Phone Care Team Providers Care Pan Devulcanizer Helper Name Role Phone Unavailable Primary Care Provider [...]
--- OUTSIDE RECORDS SUMMARY | 2025-01-05 16:26 | XMS_ITS | Encounter Summary ---
Author Organization [employer] Address 75 [facility] 7t [place] [address] Care Team Providers Care Progressive Care Unit Registered Nurse Name Role Phone Suzy Mabry MD Primary Care Provider [phone] Reason for Referral * Consultation (Routine) - Closed Specialty Diagnoses / Procedures Referred By Contac t Referred To Contact Optometry Diagnoses Visual impairment Suzy Mabry MD [address] [place] [address] Phone: tel: fax: [facility] OPTOMETRY [address] [place] [address] Phone: tel: fax: Referral ID Status Reason Start Date Expiration Date V isits Requested Visits Authorized [id number] Closed Consult and Treat 08/02/2024 08/02/2025 1 1 Encounter Details Date Type Department Care Team (Late st Contact Info) Description 07/26/2024 Orders Only [facility] MEDICINE [address] [place] [address] Suzy Mabry MD [address] [place], [place] [phone] Visual impairment (Primary Dx) Social History Tobacco [...] Associated Diagnoses Orde r Schedule Referral to [facility] Eye Care Outpatient Referral Routine Visual impairment Expected: 08/02/2024 (Approximate), Expires: 08/02/2025 documented as of this encounter Visit Diagnoses Diagnosis Visual impairment- Primary Unspecified visual loss documented in this encounter Additional Health Concerns Assessment Noted Time PHQ-9 Depression Total Score: 0 04/09/20 23 11:11 AM EDT documented as of this encounter Care Teams Progressive Care Unit Registered Nurse Relationship Specialty Start Date End Date Suyz Mabry MD [address] [place] [phone] PCP - General Family Medicine 10/05/18 documented as of this encounter
--- OUTSIDE RECORDS SUMMARY | 2025-01-05 16:26 | XMS_ITS | Encounter Summary ---
Author Organization [facility] Address [address] [place] [address] Phone Care Team Providers Care Rn Med Surg Name Role Phone Rigoberto Carias MD Primary Care Provider [phone] Encounter Details Date Type Department Care Team (Late st Contact Info) Description 11/05/2011 Documentation [facility] [place] [address] [place] [address] Family Medicine, Physician [address] [place] [address] Social History Tobacco Use Types [...] on filedocumented in this encounter Care Teams Rn Med Surg Relationship Specialty Start Date End Date Rigoberto Carias MD [address] [facility] [place] [address] PCP - General 05/15/17 03/11/23 documented as of this encounter
--- OUTSIDE RECORDS SUMMARY | 2025-01-05 16:26 | XMS_ITS | Encounter Summary ---
Author Organization [facility] Address [address] [place] [address] Phone Care Team Providers Care Information Systems Manager Name Role Phone Rigoberto Carias MD Primary Care Provider [phone] Encounter Details Date Type Department Care Team (Late st Contact Info) Description 05/18/2012 Documentation [facility] [place] Family Medicine [address] [place] [address] Family Medicine, Physician [address] [place] [address] Social History Tobacco Use Types [...] on filedocumented in this encounter Care Teams Information Systems Manager Relationship Specialty Start Date End Date Rigoberto Carias MD 150 [facility] [place] [address] PCP - General 05/15/17 03/11/23 documented as of this encounter
== END 2025-01-05 15:32 | disposition home or self-care (01) ==
LOC: HO.HWS 14:55
PROVIDERS: PCP Family Medicine; Visit Provider Obstetrics & Gynecology
DX: N93.9 Abnormal uterine and vaginal bleeding, unspecified (principal)
CPT/HCPCS: 99213

== ENCOUNTER → 2025-01-05 14:55 | Outpatient (BNVA) | payer MEDICAID, SELFPAY | PROVIDERS: PCP Family Medicine; Visit Provider Obstetrics & Gynecology | DX: N93.9 Abnormal uterine and vaginal bleeding, unspecified (principal) | CPT/HCPCS: 99212 ==

== ENCOUNTER 2025-04-13 07:56 | Outpatient (REF) | payer MEDICAID, SELFPAY ==
--- NOTE | ~2025-04-13 | MM_ITS ---
EXAMINATION: MM SCREENING DIGITAL BREAST TOMOSYNTHESIS, BILATERAL CLINICAL INFORMATION: Screening. Asymptomatic. COMPARISON: January 14, 2021 TECHNIQUE: Digital breast tomosynthesis is performed in both the craniocaudal and mediolateral oblique views along with computer-aided detection (CAD). Synthesized 2D images are generated from the tomosynthesis. FINDINGS: BREAST COMPOSITION: The breasts are heterogeneously dense, which may obscure small masses (ACR BI-RADS breast composition Category c). BILATERAL BREASTS: No significant masses, suspicious calcifications or other abnormalities are seen in either breast. MM/MM tomosynthesis screening BI IMPRESSION: BILATERAL BREASTS: Negative, no mammographic evidence of malignancy. Normal interval follow-up is recommended in 12 months. ASSESSMENT: BI-RADS 1 - Negative RECOMMENDATION: Routine annual mammography screening. FOLLOW-UP: 1 year F/U This examination should not preclude the clinical evaluation of a suspicious palpable abnormality. This patient's information was entered into a reminder system with a target due date for their next mammogram. Electronically signed by: Zack Leonard MD 04/25/2025 08:32 PM EDT
--- OUTSIDE RECORDS SUMMARY | 2025-04-13 08:00 | XMS_ITS | Encounter Summary ---
Author Organization [facility] Address [address] [place] [address] Phone Care Team Providers Care Grading Machine Feeder Name Role Phone Rigoberto Carias MD Primary Care Provider [phone] Encounter Details Date Type Department Care Team (Late st Contact Info) Description 11/05/2011 Documentation [facility] [place] [address] [place] [address] Family Medicine, Physician [address] [place] [address] Social History Tobacco Use Types [...] on filedocumented in this encounter Care Teams Grading Machine Feeder Relationship Specialty Start Date End Date Rigoberto Carias MD 150 [facility] [place] [address] PCP - General 05/15/17 03/11/23 documented as of this encounter
== END 2025-04-13 07:57 | disposition home or self-care (01) ==
LOC: HO.MAMMO 07:56
PROVIDERS: PCP Family Medicine; Visit Provider Advanced Practice Midwife
DX: Z12.31 Encounter for screening mammogram for malignant neoplasm of breast (principal)
CPT/HCPCS: 77063; 77067

== ENCOUNTER → 2025-04-13 08:00 | Outpatient (BNV) | payer MEDICAID, SELFPAY | PROVIDERS: PCP Family Medicine; Visit Provider Radiology Body Imaging | DX: Z12.31 Encounter for screening mammogram for malignant neoplasm of breast (principal) | CPT/HCPCS: 77063; 77067 ==

== ENCOUNTER 2025-05-05 16:43 | Outpatient (REF) | payer MEDICAID, SELFPAY ==
--- OUTSIDE RECORDS SUMMARY | 2025-05-05 16:45 | XMS_ITS | Encounter Summary ---
Author Organization [facility] Address [address] [place] [address] Phone Care Team Providers Care Assistant Finance Manager Name Role Phone Rigoberto Carias MD Primary Care Provider [phone] Encounter Details Date Type Department Care Team (Late st Contact Info) Description 11/05/2011 Documentation [facility] [place] [address] [place] [address] Family Medicine, Physician [address] [place] [address] Social History Tobacco Use Types [...] on filedocumented in this encounter Care Teams Assistant Finance Manager Relationship Specialty Start Date End Date Rigoberto Carias MD 150 [facility] [place] [address] PCP - General 05/15/17 03/11/23 documented as of this encounter
== END 2025-05-05 16:44 | disposition home or self-care (01) ==
LOC: HO.HHCLNP 16:43
PROVIDERS: Visit Provider Nurse Practitioner
DX: R82.90 Unspecified abnormal findings in urine (principal); Z11.2 Encounter for screening for other bacterial diseases
CPT/HCPCS: 87086; 87088; 87186

== ENCOUNTER 2025-06-08 16:23 | Outpatient (REF) | payer MEDICAID, SELFPAY ==
--- OUTSIDE RECORDS SUMMARY | 2025-06-08 10:00 | XMS_ITS | Encounter Summary ---
Author Organization [employer] Address [address] [facility] [address] [place] [address] Care Team Providers Care Double End Tenoner Setter Name Role Phone Suzy Mabry MD Primary Care Provider [phone] Encounter Details Date Type Department Care Team ([facility] st Contact Info) Description 06/08/2025 10:00 AM EDT Office Visit [facility] [address] [place], [place] [phone] Earline Borrero DO [address] [place], [place] [phone] Complicated UTI (urinary tract infection) (Primary Dx) Social History Tobacco Use Types [...] Patient Health Questionnaire-2 Score 0 04/09/2023 Comments No Sex and Gender Information Value Date Recorded Sex Assigned at Female 08/04/2022 10:20 AM EDT Legal Sex Female 10:20 AM EDT Gender Identity Female 02/20/2023 11:14 AM EDT Sexual Orientation Don't know 02/20/2023 11 :14 AM EDT documented as of this encounter Last Filed Vital Signs Vital Sign Reading Time Taken Comments Blood Pressure 134/78 06/08/2025 10:34 AM EDT Pulse 76 06/08/2025 10:34 AM EDT Temperature 37.2 C (98.9 F) 06/08/2025 10:34 AM EDT Respiratory Rate 19 06/08/2025 10:34 AM EDT Oxygen Saturation 100% 06/08/2025 10:34 AM EDT Inhaled Oxygen Concentration - - Weight 72.6 kg (160 lb) 06/08/2025 10:34 AM EDT Height 165.1 cm (5' 5 ) 06/08/2025 10:34 AM EDT Body Mass Index 26.63 06/08/2025 10:34 AM EDT documented in this encounter Progress Notes * Earline Borrero, DO - 06/08/2025 10:00 AM EDT SUBJECTIVE Irish Burns is a 40 y.o. female who presents for Sick Visit. She presents to [place] today c/o UTI sx. She was seen in [place] at the beginning of last mos with urinary sx. Her Ucx grew E coli but she was unable to be reached with results. She was treated with macrobid on 05/24/25. She says she took the abx that were rx'd but she is still having sx. She says she is still having dysuria and frequency/urgency. She denies any hematuria or malodorous urine. She has had some pelvic and low back pain. She reports nausea, no vomiting. No fevers. She says she thought it was a yeast infection at first because she was having some vaginal itching and usually gets yeast infections near her period so she contacted [employer]ATIONAL ACC[employer] REPRESENTATIVE and was advised to use OTC monistat but it has not helped her sx. She says she is sexually active with one long-term AMAB partner. 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 Negative for activity change, appetite change, chills and unexpected weight change. Respiratory: Negative for cough and shortness of breath. Cardiovascular: Negative for chest pain, palpitations and leg swelling. Gastrointestinal: Positive for nausea. Negative for abdominal pain, diarrhea and vomiting. Genitourinary: Positive for decreased urine volume, difficulty urinating, dysuria and flank pain. Negative for frequency, hematuria, menstrual problem, urgency, vaginal bleeding, vaginal discharge and vaginal pain. Musculoskeletal: Positive for back pain. Skin: Negative for rash. Neurological: Negative for weakness and headaches. Patient Active Problem List Diagnosis Vitamin D deficiency Lipoma of scalp Cyst of nasal sinus Chronic sinusitis Asthma Allergic rhinitis Neck pain Headache Anemia No Known Allergies OBJECTIVE Visit Vitals BP 134/78 (BP Location: Left arm, Patient Position: Sitting, BP Cuff Size: Adult) Pulse 76 Temp 98.9 ??F (37.2 ??C) (Oral) Resp 19 Ht 5' 5 (1.651 m) Wt 160 lb (72.6 kg) LMP 05/29/2025 (Approximate) SpO2 100% BMI 26.63 kg/m?? OB Status Having periods Smoking Status Never BSA 1.82 m?? Physical Exam Constitutional: General: She is not in acute distress. Appearance: Normal appearance. Cardiovascular: Rate and Rhythm: Normal rate and regular rhythm. Heart sounds: Normal heart sounds. No murmur heard. Pulmonary: Effort: Pulmonary effort is normal. Breath sounds: Normal breath sounds. No wheezing or rhonchi. Abdominal: General: Bowel sounds are normal. Palpations: Abdomen is soft. There is no mass. Tenderness: There is abdominal tenderness in the suprapubic area. There is no right CVA tenderness or left CVA tenderness. Neurological: General: No focal deficit present. Mental Status: She is alert and oriented to person, place, and time. Cranial Nerves: No cranial nerve deficit. Motor: No weakness. Gait: Gait normal. Psychiatric: Mood and Affect: Mood normal. Office Visit on 06/08/2025 Component Date Value Ref Range Status Color, UA 06/08/2025 Yellow Final Clarity, UA 06/08/2025 Hazy Final Glucose, UA 06/08/2025 Negative Final Bilirubin, UA 06/08/2025 Negative Final Ketones, UA 06/08/2025 Negative Final Spec Grav, UA 06/08/2025 1.030 Final Blood, UA 06/08/2025 Positive (A) Negative, None Detected Final Moderate pH, UA 06/08/2025 6.0 Final Protein, UA 06/08/2025 Trace Final 300mg Urobilinogen, UA 06/08/2025 1.0 Final Leukocytes, UA 06/08/2025 Trace Negative, Rare, Trace Final Small Nitrite, UA 06/08/2025 Negative Negative, None Detected Final QC Media Lot # 06/08/2025 [id number] Final Lot# Expiration Date 06/08/2025 6,302,[id number] Final Preg Test, Ur 06/08/2025 Negative Negative, Indeterminate, None Detected, Invalid, Specimen unsatisfactory for evaluation, Weakly Positive, 2+ Final QC Media Lot # 06/08/2025 [id number] Final Lot# Expiration Date 06/08/2025 1,130,206 Final Assessment/Plan Diagnoses and all orders for this visit: Complicated UTI (urinary tract infection) -treat empirically with cipro BID x 1 week -send Ucx for sensitivities -send BV panel and GC/CT to r/o coinfection -advised contact [facility] if sx do not resolve, she agrees with plans --Follow-up with PCP as scheduled or sooner prn-- Current Outpatient Medications: cetirizine (ZyrTEC) 10 MG tablet, Take 1 tablet (10 mg) by mouth Once per day., Disp: 90 tablet, Rfl: 3 cholecalciferol (Vitamin D-3) 25 MCG (1000 UT) tablet, Take 1 tablet (25 mcg) by mouth Once per day., Disp: 90 tablet, Rfl: 3 ciprofloxacin (Cipro) 500 MG tablet, Take 1 tablet (500 mg) by mouth 2 times daily for 7 days., Disp: 14 tablet, Rfl: 0 fluticasone (Flonase) 50 MCG/ACT nasal spray, Administer 2 sprays into each nostril Once per day. Shake gently. Before first use, prime pump. After use, clean tip and replace cap., Disp: 48 mL, Rfl: 3 ibuprofen 600 MG tablet, Take 1 tablet (600 mg) by mouth every 6 (six) hours if needed for mild pain., Disp: 40 tablet, Rfl: 1 nystatin (Nystop) [id number] UNIT/GM powder, Apply topically 2 times daily., Disp: 30 g, Rfl: 1 pseudoephedrine ER (Sudafed-12 Hour) 120 MG 12 hr tablet, Take 1 tablet (120 mg) by mouth every 12 (twelve) hours if needed for congestion. Do not crush, chew, or split., Disp: 20 tablet, Rfl: 0 terbinafine (LamISIL AT) 1 % cream, Apply topically 2 times daily., Disp: 42 g, Rfl: 0 Scribe Attestation: Bruno Lynne, am serving as a scribe to document services personally performed by Earline Ruelas, based on the patient's response to questions by provider and provider's statements to me. 06/08/25 4:33 PM Physicians Attestation: Earline Lynne DO, have reviewed the information by the scribe, Bruno Neff, for accuracy and agree with its content. documented in this encounter Plan of Treatment Scheduled Orders Name Type Priority Associated Diagnoses Orde r Schedule Bacterial Vaginosis Panel Microbiology Routine Complicated UTI (urinary tract infection) Ordered: 06/08/2025 Chlamydia/N. Gonorrhoeae RNA, TMA, Vaginal Microbiology Routine Complicated UTI (urinary tract infection) Ordered: 06/08/2025 Culture, Urine, Routine Microbiology Routine Complicated UTI (urinary tract infection) Expected: 06/08/2025 (Approximate), Expires: 06/08/2026 documented as of this encounter Procedures Procedure Name Priority Date/Time Associated Diagnosis Comments POCT , URINE Routine 06/08/2025 10:39 AM EDT Complicated UTI (urinary tract infection) POCT URINALYSIS DIPSTICK Routine 06/08/2025 10:37 AM EDT Complicated UTI (urinary tract infection) documented in this encounter Results * POCT Urine (06/08/2025 10:39 AM EDT) Preg Test, Ur Negative Negative, Indeterminate, None Detected, Invalid, Specimen unsatisfactory for evaluation, Weakly Positive, 2+ QC Media Lot # [id number] Lot# Expiration Date 1,[id number] Urine 06/08/2025 10:3 9 AM EDT Earline Borrero DO POINT OF CARE TEST ENTER/SATISH T ORDERABLES Final Result * (ABNORMAL) POCT Urinalysis (06/08/2025 10:37 AM EDT) Color, UA Yellow Clarity, UA Hazy Glucose, UA Negative Bilirubin, UA Negative Ketones, UA Negative Spec Grav, UA 1.030 Blood, UA Positive(A) Negative, None Detected Comment:Moderate pH, UA 6.0 Protein, UA Trace Comment:300mg Urobilinogen, UA 1.0 Leukocytes, UA Trace Negative, Rare, Trace Comment:Small Nitrite, UA Negative Negative, None Detected QC Media Lot # [id number] Lot# Expiration Date [id number] Urine 06/08/2025 10:3 7 AM EDT Earline Borrero DO POINT OF CARE TEST ENTER/SATISH T ORDERABLES Final Result documented in this encounter Visit Diagnoses Diagnosis Complicated UTI (urinary tract infection)- Primary documented in this encounter Additional Health Concerns Assessment Noted Time PHQ-9 Depression Total Score: 0 04/09/20 23 11:11 AM EDT documented as of this encounter Care Teams Double End Tenoner Setter Relationship Specialty Start Date End Date Suzy Mabry MD [address] [place] [address] PCP - General Family Medicine 10/05/18 documented as of this encounter
--- OUTSIDE RECORDS SUMMARY | 2025-06-08 16:43 | XMS_ITS | Encounter Summary ---
Author Organization [employer] Address [address] [facility] [address] [place] [address] Care Team Providers Care Contracting Specialist Name Role Phone Suzy Mabry MD Primary Care Provider [phone] Encounter Details Date Type Department Care Team (Latest Contact Info) Description 06/08/2025 Travel Social History Tobacco Use Types Packs/Day Years [...] Time PHQ-9 Depression Total Score: 0 04/09/20 11:11 AM EDT documented as of this encounter Care Teams Contracting Specialist Relationship Specialty Start Date End Date Suzy Mabry MD [address] [place] [address] PCP - General Family Medicine 10/05/18 documented as of this encounter
--- OUTSIDE RECORDS SUMMARY | 2025-06-08 16:44 | XMS_ITS | Encounter Summary ---
Author Organization [employer] Address [address] [place] [address] [address] [place] [address] Care Team Providers Care Yarn Packer Name Role Phone Suzy Mabry MD Primary Care Provider [phone] Reason for Referral * Consultation (Routine) - Closed Specialty Diagnoses / Procedures Referred By Contac t Referred To Contact Optometry Diagnoses Visual impairment Suzy Mabry MD [address] [place] [address] Phone: tel: fax: [facility] OPTOMETRY [address] [place] [address] Phone: tel: fax: Referral ID Status Reason Start Date Expiration Date V isits Requested Visits Authorized [id number] Closed Consult and Treat 08/02/2024 08/02/2025 1 1 Encounter Details Date Type Department Care Team (Late st Contact Info) Description 07/26/2024 Orders Only [facility] MEDICINE [address] [place] [address] Suzy Mabry MD [address] [place], [place] [phone] Visual impairment (Primary Dx) Social History Tobacco Use Types Packs/Day Years Used Date Smoking Tobacco: Never Passive Smoke Exposure: Never Smokeless Tobacco: Never Alcohol Use Standard Drinks/Week Comments Not Currently 0 (1 standard drink = 0.6 oz pur e alcohol) Depression Answer Date Recorded Patient Health Questionnaire-9 Score 0 04/09/2023 Housing Stability Answer Date Recorded What is your housing situation today? I have franice ordoñez 08/03/[address] you [...] Associated Diagnoses Orde r Schedule Referral to [facility] Eye Care Outpatient Referral Routine Visual impairment Expected: 08/02/2024 (Approximate), Expires: 08/02/2025 documented as of this encounter Visit Diagnoses Diagnosis Visual impairment- Primary Unspecified visual loss documented in this encounter Additional Health Concerns Assessment Noted Time PHQ-9 Depression Total Score: 0 04/09/20 23 11:11 AM EDT documented as of this encounter Care Teams Yarn Packer Relationship Specialty Start Date End Date Suzy Mabry MD [address] [place] [address] PCP - General Family Medicine 10/05/18 documented as of this encounter
--- OUTSIDE RECORDS SUMMARY | 2025-06-08 16:44 | XMS_ITS | Encounter Summary ---
Author Organization [facility] Address [address] [place] [address] Phone Care Team Providers Care Pipeline Systems Operator Name Role Phone Rigoberto Carias MD Primary Care Provider [phone] Encounter Details Date Type Department Care Team (Late st Contact Info) Description 05/18/2012 Documentation [facility] [place] Family Medicine [address] [place] [address] Family Medicine, Physician [address] [place], [place] [phone] Social History Tobacco Use Types Packs/Day Years [...] on filedocumented in this encounter Care Teams Pipeline Systems Operator Relationship Specialty Start Date End Date Rigoberto Carias MD [address] [facility] [place] [address] PCP - General 05/15/17 03/11/23 documented as of this encounter
--- OUTSIDE RECORDS SUMMARY | 2025-06-08 16:44 | XMS_ITS | Clinical Summary ---
Author Organization [facility] Address [address] [place] [phone] Phone Care Team Providers Care Field Merchandiser Name Role Phone Unavailable Primary Care Provider [...] 05/04/2009 05/04/1999, 12/17/1998, 06/04/1997, Additional history exists HPV Vaccines (1 - 3-dose SCDM series) 02/07/2012 Influenza Vaccines (#1) 2025 07/28/2013 COVID-19 Vaccine ( season) 2025 MMR Vaccines Completed 06/04/1996, 08/04/1990 Hepatitis B [...]
--- OUTSIDE RECORDS SUMMARY | 2025-06-08 16:44 | XMS_ITS | Clinical Summary ---
Author Organization [employer] Address [address] [place] [address] 7 [place] [address] Care Team Providers Care Computed Tomography Scanner Operator Name Role Phone Suzy Mabry MD Primary Care Provider [phone] Allergies No known active allergies Medications terbinafine (LamISIL AT) 1 % cream Apply topically 2 times daily. 42 g 07/21/20 24 Active cholecalcifero l (Vitamin D-3) 25 MCG (1000 UT) tablet Take 1 tablet (25 mcg) by mouth Once per day. 90 tablet 3 07/26/20 24 Active cetirizine (ZyrTEC) 10 MG tabletIndicati ons:Allergic rhinitis, unspecified seasonality, unspecified trigger Take 1 tablet (10 mg) by mouth Once per day. 90 tablet 3 01/12/20 25 Active fluticasone (Flonase) 50 MCG/ACT nasal sprayIndicatio ns:Allergic rhinitis, unspecified seasonality, unspecified trigger Administer 2 sprays into each nostril Once per day. Shake gently. Before first use, prime pump. After use, clean tip and replace cap. 48 mL 3 01/12/20 25 026 Active pseudoephedrin e ER (Sudafed-12 Hour) 120 MG 12 hr tablet Take 1 tablet (120 mg) by mouth every 12 (twelve) hours if needed for congestion. Do not crush, chew, or split. 20 tablet 01/12/20 25 026 Active nystatin (Nystop) 576187 UNIT/GM powderIndicati ons:Toe web intertrigo Apply topically 2 times daily. 30 g 1 02/21/20 25 026 Active ciprofloxacin (Cipro) 500 MG tablet Take 1 tablet (500 mg) by mouth 2 times daily for 7 days. 14 tablet 06/08/20 25 025 Active ibuprofen 600 MG tablet Take 1 tablet (600 mg) by mouth every 6 (six) hours if needed for mild pain. 40 tablet 1 06/08/20 25 026 Active ibuprofen 600 MG tablet Take 1 tablet (600 mg) by mouth every 6 (six) hours if needed for mild pain. 40 tablet 1 01/12/20 25 025 Discontinued(Re order (will not trigger notification to Pharmacy)) nitrofurantoin , macrocrystal-m onohydrate, (Macrobid) 100 MG capsuleIndicat ions:Acute cystitis without hematuria Take 1 capsule (100 mg) by mouth 2 times daily for 5 days. 10 capsule 05/24/20 25 025 Active Problems Problem Noted Date Diagnosed Date [...] - patient has fibroid and following with sourcing manager - will check anemia and will also [...] Encounters Date Type Department Care Team Description 06/08/2025 10:00 AM EDT Office Visit [facility] [address] [place] [phone] Earline Borrero DO Complicated UTI (urinary tract infection) (Primary Dx) 06/08/2025 Travel 05/23/2025 Telephone [facility] [address] [place] [address] Suzy Mabry MD 05/18/2025 Results Follow-Up [facility] [address] [place] [phone] Appram, Miesha, FINISH MACHINE TENDER POCT urinalysis dipstick manually resulted, Culture, Urine, Routine 05/05/2025 3:20 PM EDT [facility] [address] [address] JohanmMiesha, FINISH MACHINE TENDER Malodorous urine (Primary Dx); UTI symptoms 05/05/2025 Travel 04/13/2025 Orders Only [facility] External Provider, [facility] from Last 3 Months Immunizations Immunization Administration Dates Next Due DTP [...] Mass Index 26.63 06/08/2025 10:34 AM EDT Plan of Treatment Health Maintenance Due Date Last Done Comments Disability Screening 1985 Family Planning (PISQ) 02/07/2000 HPV Vaccines (1 - 3-dose series) 02/07/2000 Pneumococcal Vaccine: Pediatrics (0 to 5 Years) and At-Risk Patients (6 to 49) Years (1 of 2 - PCV) 02/07/2004 DTaP/Tdap/Td Vaccines (8 - Td or Tdap) 07/28/2023 07/28/2013, 05/04/1999, 12/17/1998, Additional history exists Depression Screening 04/09/2024 04/09/2023, 04/09/20 23 SDOH Screening 04/09/2024 04/09/2023 COVID-19 Vaccine ( season) 2025 Influenza Vaccine (#1) 2025 07/28/2013 Alcohol/Substance Use Screening 07/21/2025 07/21/2024 Tobacco Screening 06/08/2026 06/08/2025 Cervical Cancer Screening 02/28/2027 HPV/Cotest 02/28/2027 02/28/2022, 02/03, 02/28/2022, Additional history exists Pap Smear 02/28/2027 02/28/2022, 07/13/2020 Mammogram 04/13/2027 04/13/2025, 01/14/2021 Zoster Vaccines (1 of 2) 2035 RSV Patients and Patients Aged 60 years or older (1 - 1-dose 75+ series) 02/07/2060 Hepatitis B Vaccines Completed 03/04/1997, 10/04/1996, 08/04/1996 IPV Vaccines Completed 05/04/1999, 08/10/1996, 06/04/1996, Additional history exists HIV Screening Completed 10/08/2023, 04/04, 07/13/2020, Additional history exists Hepatitis C Screening Completed 10/08/2023, 023 HIB Vaccines Aged Out No longer eligi ble based on patient's age to complete this topic Hepatitis A Vaccines Aged Out No long er eligible based on patient's age to complete this topic Meningococcal B Vaccine Aged Out No l onger eligible based on patient's age to complete [...] AM EDT Complicated UTI (urinary tract infection) CULTURE, URINE, ROUTINE Routine 05/05/2025 3:57 PM EDT Malodorous urine POCT URINALYSIS DIPSTICK Routine 05/05/2025 3:27 PM EDT UTI symptoms BI MAMMOGRAM SCREENING TOMOSYNTHESIS BILATERAL Routine 04/13/2025 8:05 AM EDT HEPATITIS C ANTIBODY Routine 10/08/2023 3:40 PM EST HIV 1/2 ANTIGEN/ANTIBODY, FOURTH GENERATION W/RFL Routine 10/08/2023 3:40 PM EST HM PAP/HPV Routine 02/28/2022 from Last 3 Months or Most Recently Relevant to Health Maintenance Results * POCT Urine (06/08/2025 10:39 AM EDT) Preg Test, Ur Negative Negative, Indeterminate, None Detected, Invalid, Specimen unsatisfactory for evaluation, Weakly Positive, 2+ QC Media Lot # [id number] Lot# Expiration Date ,206 Urine 06/08/2025 10:3 9 AM EDT Earline Borrero DO POINT OF CARE TEST ENTER/SATISH T ORDERABLES Final Result * (ABNORMAL) POCT Urinalysis (06/08/2025 10:37 AM EDT) Only the most recent of2 resultswithin the time period is included. Color, UA Yellow Clarity, UA Hazy Glucose, UA Negative Bilirubin, UA Negative Ketones, UA Negative Spec Grav, UA 1.030 Blood, UA Positive(A) Negative, None Detected Comment:Moderate pH, UA 6.0 Protein, UA Trace Comment:300mg Urobilinogen, UA 1.0 Leukocytes, UA Trace Negative, Rare, Trace Comment:Small Nitrite, UA Negative Negative, None Detected QC Media Lot # [id number] Lot# Expiration Date ,026 Urine 06/08/2025 10:3 7 AM EDT Earline Borrero DO POINT OF CARE TEST ENTER/SATISH T ORDERABLES Final Result * Culture, Urine, Routine (05/05/2025 3:57 PM EDT) Urine Urine specimen obtained by clean catch procedure / Unknown 05/05/2025 3:57 PM EDT 05/05/2025 4:44 PM EDT Comment:UACC Narrative [facility] - 05/07/2025 7:21 AM EDT Escherichia coli Quant > 100,000 cfu/mL Escherichia coli: Ampicillin >=32(R) Escherichia coli: Cefazolin (Urine) 4(S) Escherichia coli: Cefepime <=0.12(S) Escherichia coli: Ceftriaxone <=0.25(S) Escherichia coli: Ciprofloxacin <=0.06(S) Escherichia coli: Gentamicin <=1(S) Escherichia coli: Nitrofurantoin <=16(S) Escherichia coli: Trimethoprim/Sulfamethoxazole >=320(R) Specimen Source: Urine clean catch Miesha Hutchinson NP LAB MICROBIOLOGY - GENERAL ADAM GARG Final Result [facility] [address] [place] [phone] * BI Mammogram Screening Tomosynthesis Bilateral (04/13/2025 8:05 AM EDT) Anatomical Region Laterality Modality Breast Bilateral Mammography 04/13/2025 8:05 AM EDT Narrative 04/25/2025 8:34 PM EDT [facility] [address] [place] [address] Mammography Report Signed Patient: Irish Pope MR#: [id number] : 1985 Acct:[id number] Age/Sex: 40 / F ADM Date: 04/13/25 Loc: HO.MAMMO Attending Dr: Chantelle Bernal CNM Ordering Physician: Chantelle Bernal CNM Results: 1Nega tive Date of Service: 04/13/25 Follow Up: 1 Year From Orig inal Mammogram Procedure(s): MM tomosynthesis screening BI Accession Number(s): [id number] cc: Chantelle Bernal CNM; Suzy Mabry MD EXAMINATION: MM SCREENING DIGITAL BREAST TOMOSYNTHESIS, BILATERAL CLINICAL INFORMATION: Screening. Asymptomatic. COMPARISON: January 14, 2021 TECHNIQUE: Digital breast tomosynthesis is performed in both the craniocaudal and mediolateral oblique views along with computer-aided detection (CAD). Synthesized 2D images are generated from the tomosynthesis. FINDINGS: BREAST COMPOSITION: The breasts are heterogeneously dense, which may obscure small masses (ACR BI-RADS breast composition Category c). BILATERAL BREASTS: No significant masses, suspicious calcifications or other abnormalities are seen in either breast. MM/MM tomosynthesis screening BI IMPRESSION: BILATERAL BREASTS: Negative, no mammographic evidence of malignancy. Normal interval follow-up is recommended in 12 months. ASSESSMENT: BI-RADS 1 - Negative RECOMMENDATION: Routine annual mammography screening. FOLLOW-UP: 1 year F/U This examination should not preclude the clinical evaluation of a suspicious palpable abnormality. This patient's information was entered into a reminder system with a target due date for their next mammogram. Electronically signed by: Zack Leonard MD 04/25/2025 08:32 PM EDT Dictated By: Zack Leonard MD Signed By: <Electronically signed by Zack Leonard MD in OV> 04/25/252031 DD/ 4 TD/TT: 04/13/25824 Electrical Software Engineer: Procedure Note Donotuseinterpreter, Image - 04/25/2025 [facility] [address] [place] [address] Mammography Report Signed Patient: Irish Pope GMR#: [id number] : 1985Acct:[id number] Age/Sex: 40 / FADM Date: 04/13/25 Loc: HO.MAMMO Attending Dr: Chantelle Bernal CNM Ordering Physician: Chantelle Bernalesults: 1Nega tive Date of Service: 04/13/25Follow Up: 1 Year From Orig inal Mammogram Procedure(s): MM tomosynthesis screening BI Accession Number(s): [id number] cc: Chantelle Bernal CNM; Suzy Mabry MD EXAMINATION: MM SCREENING DIGITAL BREAST TOMOSYNTHESIS, BILATERAL CLINICAL INFORMATION: Screening. Asymptomatic. COMPARISON: January 14, 2021 TECHNIQUE: Digital breast tomosynthesis is performed in both the craniocaudal and mediolateral oblique views along with computer-aided detection (CAD). Synthesized 2D images are generated from the tomosynthesis. FINDINGS: BREAST COMPOSITION: The breasts are heterogeneously dense, which may obscure small masses (ACR BI-RADS breast composition Category c). BILATERAL BREASTS: No significant masses, suspicious calcifications or other abnormalities are seen in either breast. MM/MM tomosynthesis screening BI IMPRESSION: BILATERAL BREASTS: Negative, no mammographic evidence of malignancy. Normal interval follow-up is recommended in 12 months. ASSESSMENT: BI-RADS 1 - Negative RECOMMENDATION: Routine annual mammography screening. FOLLOW-UP: 1 year F/U This examination should not preclude the clinical evaluation of a suspicious palpable abnormality. This patient's information was entered into a reminder system with a target due date for their next mammogram. Electronically signed by: Zack Leonard MD 04/25/2025 08:32 PM EDT Dictated By: Zack Leonard MD Signed By: <Electronically signed by Zack Leonard MD in OV> 04/25/252031 DD/ 4 TD/TT: 04/13/25824 Electrical Software Engineer: [facility] External Provider IMG BI PROCEDURES Final Result * Hepatitis C Ab (10/08/2023 3:40 PM EST) Hepatitis C Antibody Nonreactive Nonreactive [facility] Comment:Antibodies to HCV no t detected; does not exclude early acuteHCV infection. 10/08/2023 3:40 PM EST 10/08/2023 3:45 PM EST Generic External Data Provider LAB BLOOD ORDERAB LES Final Result [facility] [address] [place] [phone] * HIV-1/2 Antigen and Antibodies, Fourth Generation, with Reflexes (10/08/2023 3:40 PM EST) HIV AB/AG Nonreactive Nonreactive [facility] Comment:HIV-1 p24 Ag and/or HIV-1/HIV-2 Ab not detected.A test result that is nonreactive does not exclude thepossibility of exposure to or infection with HIV-1 and/orHIV-2. Nonreactive results in this assay for individualswith prior exposure to HIV-1 and/or HIV-2 may be due toantigen and antibody levels that are below the limit ofdetection of this assay.The [employer] HIV Ag/Ab Combo assay result andsupplemental assay results should be interpreted inconjunction with the patient's clinical presentation,history and other laboratory results. If the results areinconsistent with clinical evidence, additional testing issuggested to confirm the result. 10/08/2023 3:40 PM EST 10/08/2023 3:45 PM EST Generic External Data Provider LAB BLOOD ORDERAB LES Final Result [facility] [address] [place] [address] [phone] * Hm Pap Smear (02/28/2022) Pap Negative for intraephithelial lesion or malignancy Negative for intraephithelial lesion or malignancy, Other HPV Undetected Historical Provider HEALTH MAINTENANCE Final Result from Last 3 Months or Most Recently Relevant to Health Maintenance [facility] Care Teams Computed Tomography Scanner Operator Relationship Specialty Start Date End Date Suzy Mabry MD [address] [place] [phone] PCP - General Family Medicine 10/05/18
--- OUTSIDE RECORDS SUMMARY | 2025-06-08 16:44 | XMS_ITS | Encounter Summary ---
Author Organization [employer] Address [address] [place] [address] 7 [place] [address] Care Team Providers Care Appeals Examiner Name Role Phone Suzy Mabry MD Primary Care Provider [phone] Encounter Details Date Type Department Care Team (Late st Contact Info) Description 05/01/2023 Abstract [facility] [address] [place], [place] [phone] Suzy Mabry MD [address] [place], [place] [phone] Social History Tobacco Use Types Packs/Day Years [...] documented as of this encounter Care Teams Appeals Examiner Relationship Specialty Start Date End Date Suzy Mabry MD [address] [place] [address] PCP - General Family Medicine 10/05/18 documented as of this encounter
--- OUTSIDE RECORDS SUMMARY | 2025-06-08 16:44 | XMS_ITS | Encounter Summary ---
Author Organization [employer] Address [address] [place] [address] [place] [address] Care Team Providers Care Plant Operations Coordinator Name Role Phone Suzy Mabry MD Primary Care Provider [phone] Reason for Referral * Consultation (Urgent) - Closed Specialty Diagnoses / Procedures Referred By Corina livingston Referred To Contact Obstetrics and Gynecology Diagnoses Encounter for well woman exam with routine gynecological exam Pelvic pain Suzy Mabry MD [address] [place] [address] Phone: tel: fax: [facility] Referral ID Status Reason Start Date Expiration Date V isits Requested Visits Authorized [id number] Closed Specialty Services Required 06/27/2024 06/27/2025 9 9 Encounter Details Date Type Department Care Team (Late st Contact Info) Description 06/28/2024 Orders Only [facility] [address] [place], [place] [phone] Suzy Mabry MD [address] [place], [place] [phone] Encounter for well woman exam with routine [...] Reticulocytes Absolute 0.069 0.026 - 0.095 X10*6/uL [facility] Immature Retic Fraction 16.3(H) 3.0 - 15.9 % [facility] Retic HGB Equivalent 29.1(L) 30.0 - 35.0 pg [facility] Reticulocyte Percent 1.5 0.5 - 1.8 % [facility] Blood Venous blood specimen / Unknown 07/21/2024 2:50 PM EDT 07/21/2024 4:18 PM EDT Suzy Mabry MD LAB BLOOD ORDERABLES Final Resul t Performing Organization Address [facility]/ZIP Co de Phone Number [facility] [address] [place] [phone] * Iron And Total Iron Binding Capacity (07/21/2024 2:50 PM EDT) Iron 65 30 - 160 mcg/dL [facility] Total Iron Binding Capacity 292 228 - 428 mcg/dL [facility] Percent Iron Saturation 22 15 - 50 % [facility] Unsaturated Iron Binding 227 ug/dL [facility] Blood Venous blood specimen / Unknown 07/21/2024 2:50 PM EDT 07/21/2024 4:18 PM EDT Suzy Mabry MD LAB BLOOD ORDERABLES Final Resul t Performing Organization Address [facility]/ZIP Co de Phone Number [facility] [address] [place] [phone] * Ferritin (07/21/2024 2:50 PM EDT) Ferritin 26 10 - 122 ng/mL [facility] Blood Venous blood specimen / Unknown 07/21/2024 2:50 PM EDT 07/21/2024 4:18 PM EDT us Suzy Mabry MD LAB BLOOD ORDERABLES Final Resul t [facility] [address] [place] [address] [phone] * (ABNORMAL) CBC auto differential (07/21/2024 2:50 PM EDT) White Blood Count 9.4 4.8 - 10.8 X10*3/uL [facility] Red Blood Count 4.68 4.20 - 5.50 X10*6/uL [facility] Hemoglobin 11.8(L) 12.0 - 16.0 g/dl [facility] Hematocrit 35.7(L) 37.0 - 47.0 % [facility] Mean Corpuscular Volume 76.3(L) 80.0 - 98.0 fL [facility] Mean Corpuscular Hemoglobin 25.2(L) 27.0 - 33.0 pg [facility] Mean Corpuscular HGB Conc 33.1 31.0 - 35.0 g/dl [facility] Red Cell Distribution Width 13.1 11.0 - 16.0 % [facility] Platelet Count 244 160 - 400 X10*3/uL [facility] Mean Platelet Volume 11.4 9.4 - 12.3 fL [facility] Neutrophils Percent Auto 66.0 45 - 73 % [facility] Imm Gran Pct Auto 0.3 0.0 - 0.4 % [facility] Lymphocytes Percent Auto 26.3 20 - 40 % [facility] Monocytes Percent Auto 5.3 2 - 11 % [facility] Eosinophils Percent Auto 1.4 0 - 4 % [facility] Basophils Percent Auto 0.7 0 - 2 % [facility] NRBC Pct Auto 0.0 0.0 - 0.2 /100WBC [facility] Neutrophils Absolute Auto 6.2 2.0 - 8.3 x10*3/uL [facility] Imm Gran Abs Auto 0.03 0.00 - 0.03 X10*3/uL [facility] Lymphocytes Absolute Auto 2.5 1.2 - 4.9 X10*3/uL [facility] Monocytes Absolute Auto 0.5 0.1 - 1.2 X10*3/uL [facility] Eosinophils Absolute Auto 0.1 0.0 - 0.4 X10*3/uL [facility] Basophils Absolute Auto 0.1 0.0 - 0.2 X10*3/uL [facility] NRBC Abs Auto 0.000 0.0 - 0.012 X10*3/uL [facility] Blood Venous blood specimen / Unknown 07/21/2024 2:50 PM EDT 07/21/2024 4:18 PM EDT us Suzy Mabry MD LAB BLOOD ORDERABLES Final Resul t [facility] [address] [place] [address] [phone] documented in this encounter Visit Diagnoses [...] documented as of this encounter Care Teams Plant Operations Coordinator Relationship Specialty Start Date End Date Suzy Mabry MD [address] [place] [phone] PCP - General Family Medicine 10/05/18 documented as of this encounter
--- OUTSIDE RECORDS SUMMARY | 2025-06-08 16:44 | XMS_ITS | Encounter Summary ---
Author Organization [employer] Address [address] [place] [address] 7t [place] [address] Care Team Providers Care Premises Technician Name Role Phone Suzy Mabry MD Primary Care Provider [phone] Encounter Details Date Type Department Care Team ([facility] st Contact Info) Description 07/06/[address] [facility] [address] [place], [place] [phone] Apple Fuller Social History Tobacco Use Types [...] us Historical Provider HEALTH MAINTENANCE Final Result * [...] documented as of this encounter Care Teams Premises Technician Relationship Specialty Start Date End Date Suzy Mabry MD [address] [place] [address] PCP - General Family Medicine 10/05/18 documented as of this encounter
--- OUTSIDE RECORDS SUMMARY | 2025-06-08 16:44 | XMS_ITS | Encounter Summary ---
Author Organization [employer] Address [address] [place] [address] 7 [place] [address] Care Team Providers Care Marketing Performance Analyst Name Role Phone Suzy Mabry MD Primary Care Provider [phone] Encounter Details Date Type Department Care Team ([facility] st Contact Info) Description 04/16/2023 Orders Only [facility] [address] [place], [place] [phone] Suzy Mabry MD [address] [place], [place] [phone] Social History Tobacco Use Types Packs/Day Years [...] documented as of this encounter Care Teams Marketing Performance Analyst Relationship Specialty Start Date End Date Suzy Mabry MD [address] [place] [address] PCP - General Family Medicine 10/05/18 documented as of this encounter
--- OUTSIDE RECORDS SUMMARY | 2025-06-08 16:44 | XMS_ITS | Encounter Summary ---
Author Organization [facility] Address [address] [place] [phone] Phone Care Team Providers Care Tobacco Weigher Name Role Phone Rigoberto Carias MD Primary Care Provider [phone] Encounter Details Date Type Department Care Team (Late st Contact Info) Description 11/05/2011 Documentation [facility] [address] [place] [address] Family Medicine, Physician [address] [place] [address] Social History Tobacco Use Types [...] on filedocumented in this encounter Care Teams Tobacco Weigher Relationship Specialty Start Date End Date Rigoberto Carias MD [address] [facility] [place] [address] PCP - General 05/15/17 03/11/23 documented as of this encounter
--- OUTSIDE RECORDS SUMMARY | 2025-06-08 16:44 | XMS_ITS | Encounter Summary ---
Author Organization [employer] Address [address] [facility] [address]t [place] [address] Care Team Providers Care Web Weaver Name Role Phone Suzy Mabry MD Primary Care Provider [phone] Encounter Details Date Type Department Care Team ([facility] st Contact Info) Description 05/23/2025 Telephone [facility]INE [address] [place], [place] [phone] Suzy Mabry MD [address] [place], [place] [phone] Social History Tobacco Use Types Packs/Day Years [...] documented as of this encounter Care Teams Web Weaver Relationship Specialty Start Date End Date Suzy Mabry MD [address] [place] [address] PCP - General Family Medicine 10/05/18 documented as of this encounter
[2025-06-08 17:34] LABS: Bacterial Vaginosis PCR NEGATIVE (Negative); Candida Group PCR DETECTED (Not Detect); Candida glab krusei PCR NOT DETECTED (Not Detect); Trichomonas vaginalis PCR NOT DETECTED (Not Detect)
[2025-06-08 18:07] LABS: CT PCR NOT DETECTED (Not Detect.); NG PCR NOT DETECTED (Not Detect.)
== END 2025-06-08 16:24 | disposition home or self-care (01) ==
LOC: HO.HHCLNP 16:23
PROVIDERS: Visit Provider Family Medicine
DX: Z11.3 Encounter for screening for infections with a predominantly sexual mode of transmission (principal); Z11.8 Encounter for screening for other infectious and parasitic diseases; N39.0 Urinary tract infection, site not specified
CPT/HCPCS: 81515; 87086; 87088; 87186; 87491; 87591

== ENCOUNTER 2025-07-05 15:11 | Outpatient (REF) | payer MEDICAID, SELFPAY ==
[2025-07-07 08:15] LABS: Bacterial Vaginosis PCR NEGATIVE (Negative); Candida Group PCR DETECTED (Not Detect); Candida glab krusei PCR NOT DETECTED (Not Detect); Trichomonas vaginalis PCR NOT DETECTED (Not Detect)
[2025-07-07 09:13] LABS: CT PCR NOT DETECTED (Not Detect.); NG PCR NOT DETECTED (Not Detect.)
== END 2025-07-05 15:12 | disposition home or self-care (01) ==
LOC: HO.LAB 15:11
PROVIDERS: PCP Family Medicine; Visit Provider Advanced Practice Midwife
DX: Z01.419 Encounter for gynecological examination (general) (routine) without abnormal findings (principal); N92.0 Excessive and frequent menstruation with regular cycle; N39.0 Urinary tract infection, site not specified; R23.2 Flushing; Z12.31 Encounter for screening mammogram for malignant neoplasm of breast; Z20.2 Contact with and (suspected) exposure to infections with a predominantly sexual mode of transmission
CPT/HCPCS: 81003; 81515; 82306; 84443; 85027; 86704; 86780; 86803; 87389; 87491; 87591; 99396

== ENCOUNTER 2025-07-05 15:11 | Outpatient (AMB) | payer MEDICAID, SELFPAY ==
[2025-07-05 15:22] VITALS: BP 110/70; BMI 24.6
--- NOTE | 2025-07-05 15:22 | MHC.OFFVIS ---
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 Also having hot flashes, brain fog and fatigue. Regular monthly menses heavy 1/4d. Had hysteroscopy this year for endometrial polyp. Currently is sexually active. History of tubal ligation and uses condoms. She denies vaginal itching or irritation. STI screening offered; she accepts. She tries to eat healthy and stays active with exercise. Last pap smear 2021, negative. Mammogram: 2024. [facility] Medical History Heavy menses Possible exposure to STD Bleeding hemorrhoids Asthma Family history of ovarian cancer Family history of breast cancer Hx of lipoma Surgical History History of hernia surgery H/O tubal ligation Family History Paternal Aunt Hx of breast cancer Hx of ovarian cancer Maternal Aunt History of uterine cancer Father History of prostate cancer Paternal Grandmother History of colon cancer Paternal Uncle History of prostate cancer Social History Alcohol intake: never Patient Tobacco Use Status: Never used Tobacco Sexual orientation: Straight/Heterosexual Gender identity: Female Female Reproductive History Menstrual Age of Menarche: 10 Duration of menses: 3-5 days Date of last menstrual period: 06/24/25 control method: permanent sterilization Permanent Sterilization: BTL Total pregnancies: 3 Full term: 3 Number of Living Children: 3 Date of last pap smear: 02/28/22 (neg pap and hpv) History of abnormal pap smear: Yes (06/23/ +hpv) Date of Mammogram: 04/13/25 (Birad 1) Physical Exam Vital Signs: Last Vital Signs BP 110/70 07/05/25 15:22 BMI result Body Mass Index 24.6 Results AMB Urinalysis, Automated UA Leukoctes 0 Jaja/uL Last Edit by Sarahludwig De Dios [facility] on 07/05/25 15:36 UA Nitrite Negative Last Edit by Sarahludwig De Dios [facility] on 07/05/25 15:36 UA Urobilinogen 0 mg/dL Last Edit by Sarah De Dios [facility] on 07/05/25 15:36 UA Protein 0 mg/dL Last Edit by Sarah De Dios, [facility] on 07/05/25 15:36 UA pH 6.0 Last Edit by Sarah De Dios [facility] on 07/05/25 15:36 UA Blood 0 Johnny/uL Last Edit by Sarahludwig De Dios [facility] on 07/05/25 15:36 UA Specific Cushing 1.015 Last Edit by Sarah De Dios [facility] on 07/05/25 15:36 UA Ketone Negative Last Edit by Sarah De Dios [facility] on 07/05/25 15:36 UA Bilirubin 0 mg/dL Last Edit by Sarah De Dios [facility] on 07/05/25 15:36 UA Glucose 0 mg/dL Last Edit by Sarah De Dios [facility] on 07/05/25 15:36 Assessment & Plan Assessment & Plan (1) Well woman exam with routine gynecological exam: Code(s): Z01.419 - Encounter for gynecological examination (general) (routine) without abnormal findings Category: Medical Plan: Discussed: Current recommendations for pap smears per ASCCP guidelines. Breast awareness and periodic breast exams. Mammogram yearly. Maintain a healthy lifestyle including a well balanced diet and routine exercise. Use condoms for STI and prevention. Patient verbalizes understanding and agrees to the plan of care. She was given opportunity to ask questions and all questions were answered to the best of my ability. RTO in one year for annual sports trainer examination. This note is constructed using voice recognition software. While every effort has been made to ensure accuracy, ekg technician errors may have been included. (2) Heavy menses: Code(s): N92.0 - Excessive and frequent menstruation with regular cycle Category: Medical Qualifiers: Menorrhagia type: with regular cycle Qualified Code(s): N92.0 - Excessive and frequent menstruation with regular cycle Plan: Lab work ordered. Plan Lab work ordered follow up pending results. The patient expressed understanding and agreement with the plan of care. All of her questions and concerns were addressed to the best of my ability. Orders: Orders HIV Ab/Ag Today Z20.2 - Contact with and (suspected) exposure to infections with a predominantly sexual mode of transmission Hepatitis C Antibody Reflex Today Z20.2 - Contact with and (suspected) exposure to infections with a predominantly sexual mode of transmission Hepatitis B Core Antibody Today Z20.2 - Contact with and (suspected) exposure to infections with a predominantly sexual mode of transmission Thyroid Stimulating Hormone Today N92.0 - Excessive and frequent menstruation with regular cycle, N92.1 - Excessive and frequent menstruation with irregular cycle Syphilis Screen Today Z20.2 - Contact with and (suspected) exposure to infections with a predominantly sexual mode of transmission Vitamin D 25-OH (D2 and D3) Today N92.0 - Excessive and frequent menstruation with regular cycle, R23.2 - Flushing AMB Urinalysis Automated Today N39.0 - Urinary tract infection, site not specified Bacterial Vaginosis Panel Today Z20.2 - Contact with and (suspected) exposure to infections with a predominantly sexual mode of transmission CT NG by PCR Vag/Cerv Today Z20.2 - Contact with and (suspected) exposure to infections with a predominantly sexual mode of transmission MM tomosynthesis screening BI Today Z12.31 - Encounter for screening mammogram for malignant neoplasm of breast Complete Blood Count no Diff Today N92.0 - Excessive and frequent menstruation with regular cycle Coding Level of Care Code Est Pt Prev Care 40-64y(72297) Diagnoses Well woman exam with routine gynecological exam Z01.419 Menorrhagia with regular cycle N92.0 Menorrhagia type: with regular cycle
--- OUTSIDE RECORDS SUMMARY | 2025-07-05 16:12 | XMS_ITS | Encounter Summary ---
Author Organization [employer] Address [address] [place] [address] 7 [place] [address] Care Team Providers Care Motor Carrier Inspector Name Role Phone Suzy Mabry MD Primary Care Provider [phone] Encounter Details Date Type Department Care Team ([facility] st Contact Info) Description 04/16/2023 Orders Only [facility] [address] [place], [place] [phone] Suzy Mabry MD [address] [place], [place] [phone] Social History Tobacco Use Types Packs/Day Years [...] documented as of this encounter Care Teams Motor Carrier Inspector Relationship Specialty Start Date End Date Suzy Mabry MD [address] [place] [address] PCP - General Family Medicine 10/05/18 documented as of this encounter
--- OUTSIDE RECORDS SUMMARY | 2025-07-05 16:12 | XMS_ITS | Clinical Summary ---
Author Organization [employer] Address [address] [place] [address] 7 [place] [address] Care Team Providers Care Data Collection Specialist Name Role Phone Suzy Mabry MD Primary Care Provider [phone] Allergies No known active allergies Medications terbinafine [...] tablet 01/12/20 25 026 Active nystatin (Nystop) 628996 UNIT/GM powderIndicati ons:Toe web intertrigo Apply topically 2 times daily. 30 g 1 02/21/20 25 026 Active ibuprofen 600 MG tablet [...] order (will not trigger notification to Pharmacy)) ciprofloxacin (Cipro) 500 MG tablet Take 1 tablet (500 mg) by mouth 2 times daily for 7 days. 14 tablet 06/08/20 25 025 fluconazole (Diflucan) 150 MG tabletIndicati ons:Yeast infection Take 1 tablet (150 mg) by mouth 1 (one) time for 1 dose. 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 [address] [place] [phone] Kari Stiles, LASHONDA Yeast infection 06/08/2025 10:00 AM EDT [facility] [address] [address] Earline Borrero DO Complicated UTI (urinary tract infection) (Primary Dx) 06/08/2025 Travel 05/23/[address] [address] Suzy Mabry MD 05/18/2025 Results Follow-Up [facility] [address] [place] [phone] Appram, Miesha, COMIC BOOK WRITER POCT urinalysis dipstick manually resulted, Culture, Urine, Routine 05/05/2025 3:20 PM EDT [facility] [address] [address] Appram, Miesha, COMIC BOOK WRITER Malodorous urine (Primary Dx); UTI symptoms 05/05/2025 Travel 04/13/2025 Orders Only [facility] External Provider, [facility] from Last 3 Months Immunizations Immunization [...] your housing situation today? I have francie smita 08/03/[address] you li [...] Procedure Name Priority Date/Time Associated Diagnosis Comments CULTURE, URINE, ROUTINE Routine 06/08/2025 11:00 AM EDT Complicated UTI (urinary tract infection) CHLAMYDIA/N. GONORRHOEAE RNA, TMA, UROGENITAL Routine 06/08/2025 10:58 AM EDT Complicated UTI (urinary tract infection) BACTERIAL VAGINOSIS PANEL Routine 06/08/2025 10:57 AM EDT Complicated UTI (urinary tract infection) POCT , URINE Routine 06/08/2025 10:39 AM [...] Recently Relevant to Health Maintenance Results * Culture, Urine, Routine (06/08/2025 11:00 AM EDT) Only the most recent of2 resultswithin the time period is included. Urine Urine specimen obtained by clean catch procedure / Unknown 06/08/2025 11:00 AM EDT 06/08/2025 4:27 PM EDT Comment:CC Narrative [facility] - 06/11/2025 7:32 AM EDT Staphylococcus saprophyticus Quant > 100,000 cfu/mL Staphylococcus saprophyticus: Clindamycin <=0.25(S) Staphylococcus saprophyticus: Erythromycin >=8(R) Staphylococcus saprophyticus: Nitrofurantoin <=16(S) Staphylococcus saprophyticus: Oxacillin 2(R) Staphylococcus saprophyticus: Penicillin-G 0.25(R) Staphylococcus saprophyticus: Tetracycline <=1(S) Staphylococcus saprophyticus: Trimethoprim/Sulfamethoxazole <=10(S) Staphylococcus saprophyticus: Vancomycin <=0.5(S) Specimen Source: Urine clean catch Earline Borrero DO LAB MICROBIOLOGY - GENERAL O RDERABLES Final Result [facility] [address] [place] [phone] * Chlamydia/N. Gonorrhoeae RNA, TMA, Vaginal (06/08/2025 10:58 AM EDT) CT PCR NOT DETECTED Not Detect. [facility] Comment:A not detected test result does not exclude the possibilityof infection because test results can be affected byimproper specimen collection, concurrent antibiotic therapy,or the number of organisms in the specimen which may bebelow the sensitivity of the test. As with many diagnostictests, results from the Xpert CT/NG assay should beinterpreted in conjunction with other laboratory andclinical data available to the clinician.Xpert CT/NG performance has not been evaluated in patientsless than 14 years of age. The assay should not be used forthe evaluationof suspected sexual abuse or for other medico-legalindications. Additional testing is recommended in anycircumstance when false positive or false negative resultscould lead to adverse medical, social or psychologicalconsequences. NG PCR NOT DETECTED Not Detect. [facility] Comment:A not detected test result does not exclude the possibilityof infection because test results can be affected byimproper specimen collection, concurrent antibiotic therapy,or the number of organisms in the specimen which may bebelow the sensitivity of the test. As with many diagnostictests, results from the Xpert CT/NG assay should beinterpreted in conjunction with other laboratory andclinical data available to the clinician.Xpert CT/NG performance has not been evaluated in patientsless than 14 years of age. The assay should not be used forthe evaluationof suspected sexual abuse or for other medico-legalindications. Additional testing is recommended in anycircumstance when false positive or false negative resultscould lead to adverse medical, social or psychologicalconsequences. Swab (Vaginal Swab) 06/08/2025 10:58 AM EDT 06/08/2025 4:26 PM EDT us Earline Borrero DO LAB MICROBIOLOGY - GENERAL O RDERABLES Final Result [facility] [address] [place] [phone] * (ABNORMAL) Bacterial Vaginosis Panel (06/08/2025 10:57 AM EDT) TRICHOMONAS VAGINALIS DETECTION BY PCR NOT DETECTED Not Detect [facility] BACTERIAL VAGINOSIS DETECTION BY PCR NEGATIVE Negative [facility] Comment:The BV organism targ ets of the Xpert Xpress MVP test can becommensal in women; Xpert Xpress MVP positive results forbacterial vaginosis should be considered in conjunction withother clinical and patient information to determine thedisease status. Organisms that are not detected by the XpertXpress MVP test have also been reported to be associatedwith BV and aerobic vaginitis.The Xpert Xpress MVP test performance has not been evaluatedin patients under the age of 14. KIMBERLY GROUP DETECTION BY PCR DETECTED(A) Not Detect [facility] Kimberly glab krusei PCR NOT DETECTED Not Detect [facility] Swab Vaginal structure / Unknown 06/08/2025 10:57 AM EDT 06/08/2025 4:26 PM EDT Earline Borrero DO LAB MICROBIOLOGY - GENERAL O RDERABLES Final Result [facility] [address] [place] [phone] * POCT Urine (06/08/2025 10:39 AM EDT) Preg Test, Ur Negative Negative, Indeterminate, None Detected, Invalid, Specimen unsatisfactory for evaluation, Weakly Positive, 2+ QC Media Lot # [id number] Lot# Expiration Date 130,206 Urine 06/08/2025 10:3 9 AM EDT Earline [...] Media Lot # [id number] Lot# Expiration Date [id number] Urine 06/08/2025 10:3 7 AM EDT Earline Gissell OROPEZA POINT OF CARE TEST ENTER/SATISH T ORDERABLES Final Result * BI Mammogram Screening Tomosynthesis Bilateral (04/13/2025 8:05 AM EDT) Anatomical Region Laterality Modality Breast Bilateral Mammography 04/13/2025 8:05 AM EDT Narrative 04/25/2025 8:34 PM EDT [facility] [address] [place] [address] Mammography Report Signed Patient: Irish Pope MR#: [id number] : 1985 Acct:[id number] Age/Sex: 40 / F ADM Date: 04/13/25 Loc: HO.MAMMO Attending Dr: Chantelle Bernal CNM Ordering Physician: Chantelle Bernal CNM Results: 1Nega tive Date of Service: 04/13/25 Follow Up: 1 Year From Orig inal Mammogram Procedure(s): MM tomosynthesis screening BI Accession Number(s): [id number] cc: Chantelle Bernal CNM; Suzy Mabry MD [...] in OV> 04/25/252031 DD/ 4 TD/TT: 04/13/25824 It Infrastructure Consultant: Procedure Note Donotuseinterpreter, Image - 04/25/2025 [facility] [address] [place] [address] Mammography Report Signed Patient: Irish Pope GMR#: [id number] : 1985Acct:[id number] Age/Sex: 40 / FADM Date: 04/13/25 Loc: HO.MAMMO Attending Dr: Chantelle Bernal CNM Ordering Physician: Chantelle Bernalesults: 1Nega tive Date of Service: 04/13/25Follow Up: 1 Year From Orig inal Mammogram Procedure(s): MM tomosynthesis screening BI Accession Number(s): [id number] cc: Chantelle Bernal CNM; Suzy Mabry MD [...] in OV> 04/25/252031 DD/ 4 TD/TT: 04/13/25824 It Infrastructure Consultant: [facility] External Provider IMG BI PROCEDURES Final Result * Hepatitis C Ab (10/08/2023 3:40 PM EST) Hepatitis C Antibody Nonreactive Nonreactive [facility] Comment:Antibodies to HCV no t detected; does not exclude early acuteHCV infection. 10/08/2023 3:40 PM EST 10/08/2023 3:45 PM EST Generic External Data Provider LAB BLOOD ORDERAB LES Final Result [facility] [address] [place] [phone] * HIV-1/2 Antigen and Antibodies, Fourth Generation, with Reflexes (10/08/2023 3:40 PM EST) HIV AB/AG Nonreactive Nonreactive [facility] Comment:HIV-1 p24 Ag and/or HIV-1/HIV-2 Ab not detected.A test result that is nonreactive does not exclude thepossibility of exposure to or infection with HIV-1 and/orHIV-2. Nonreactive results in this assay for individualswith prior exposure to HIV-1 and/or HIV-2 may be due toantigen and antibody levels that are below the limit ofdetection of this assay.The [employer] HIV Ag/Ab Combo assay result andsupplemental assay results should be interpreted inconjunction with the patient's clinical presentation,history and other laboratory results. If the results areinconsistent with clinical evidence, additional testing issuggested to confirm the result. 10/08/2023 3:40 PM EST 10/08/2023 3:45 PM EST Generic External Data Provider LAB BLOOD ORDERAB LES Final Result [facility] [address] [place] [phone] * Hm Pap Smear (02/28/2022) Pap Negative for intraephithelial lesion or malignancy Negative for intraephithelial lesion or malignancy, Other HPV Undetected Historical Provider HEALTH MAINTENANCE Final Result from Last 3 Months or Most Recently Relevant to Health Maintenance [facility] Care Teams Data Collection Specialist Relationship Specialty Start Date End Date Suzy Mabry MD [address] [place] [phone] PCP - General Family Medicine 10/05/18
--- OUTSIDE RECORDS SUMMARY | 2025-07-05 16:12 | XMS_ITS | Encounter Summary ---
Author Organization [employer] Address [address] [place] [address] [address] [address] Care Team Providers Care Balance Recesser Name Role Phone Suzy Mabry MD Primary Care Provider [phone] Reason for Referral * Consultation (Urgent) - Closed Specialty Diagnoses / Procedures Referred By Corina livingston Referred To Contact Obstetrics and Gynecology Diagnoses Encounter for well woman exam with routine gynecological exam Pelvic pain Suzy Mabry MD [address] [place] [phone] Phone: tel: fax: [facility] Referral ID Status Reason Start Date Expiration Date V isits Requested Visits Authorized [id number] Closed Specialty Services Required 06/27/2024 06/27/2025 9 9 Encounter Details Date Type Department Care Team (Late st Contact Info) Description 06/28/2024 Orders Only [facility] [address] [place], [place] [phone] Suzy Mabry MD [address] [place], [place] [phone] Encounter for well woman exam with routine [...] Reticulocytes Absolute 0.069 0.026 - 0.095 X10*6/uL [facility] Immature Retic Fraction 16.3(H) 3.0 - 15.9 % [facility] Retic HGB Equivalent 29.1(L) 30.0 - 35.0 pg [facility] Reticulocyte Percent 1.5 0.5 - 1.8 % [facility] Blood Venous blood specimen / Unknown 07/21/2024 2:50 PM EDT 07/21/2024 4:18 PM EDT Suzy Mabry MD LAB BLOOD ORDERABLES Final Resul t Performing Organization Address [facility]/ZIP Co de Phone Number [facility] [address] [place] [phone] * Iron And Total Iron Binding Capacity (07/21/2024 2:50 PM EDT) Iron 65 30 - 160 mcg/dL [facility] Total Iron Binding Capacity 292 228 - 428 mcg/dL [facility] Percent Iron Saturation 22 15 - 50 % [facility] Unsaturated Iron Binding 227 ug/dL [facility] Blood Venous blood specimen / Unknown 07/21/2024 2:50 PM EDT 07/21/2024 4:18 PM EDT Suzy Mabry MD LAB BLOOD ORDERABLES Final Resul t Performing Organization Address [facility]/ZIP Co de Phone Number [facility] [address] [place] [phone] * Ferritin (07/21/2024 2:50 PM EDT) Ferritin 26 10 - 122 ng/mL [facility] Blood Venous blood specimen / Unknown 07/21/2024 2:50 PM EDT 07/21/2024 4:18 PM EDT us Suzy Mabry MD LAB BLOOD ORDERABLES Final Resul t [facility] [address] [place] [phone] * (ABNORMAL) CBC auto differential (07/21/2024 2:50 PM EDT) White Blood Count 9.4 4.8 - 10.8 X10*3/uL [facility] Red Blood Count 4.68 4.20 - 5.50 X10*6/uL [facility] Hemoglobin 11.8(L) 12.0 - 16.0 g/dl [facility] Hematocrit 35.7(L) 37.0 - 47.0 % [facility] Mean Corpuscular Volume 76.3(L) 80.0 - 98.0 fL [facility] Mean Corpuscular Hemoglobin 25.2(L) 27.0 - 33.0 pg [facility] Mean Corpuscular HGB Conc 33.1 31.0 - 35.0 g/dl [facility] Red Cell Distribution Width 13.1 11.0 - 16.0 % [facility] Platelet Count 244 160 - 400 X10*3/uL [facility] Mean Platelet Volume 11.4 9.4 - 12.3 fL [facility] Neutrophils Percent Auto 66.0 45 - 73 % [facility] Imm Gran Pct Auto 0.3 0.0 - 0.4 % [facility] Lymphocytes Percent Auto 26.3 20 - 40 % [facility] Monocytes Percent Auto 5.3 2 - 11 % [facility] Eosinophils Percent Auto 1.4 0 - 4 % [facility] Basophils Percent Auto 0.7 0 - 2 % [facility] NRBC Pct Auto 0.0 0.0 - 0.2 /100WBC [facility] Neutrophils Absolute Auto 6.2 2.0 - 8.3 x10*3/uL [facility] Imm Gran Abs Auto 0.03 0.00 - 0.03 X10*3/uL [facility] Lymphocytes Absolute Auto 2.5 1.2 - 4.9 X10*3/uL [facility] Monocytes Absolute Auto 0.5 0.1 - 1.2 X10*3/uL [facility] Eosinophils Absolute Auto 0.1 0.0 - 0.4 X10*3/uL [facility] Basophils Absolute Auto 0.1 0.0 - 0.2 X10*3/uL [facility] NRBC Abs Auto 0.000 0.0 - 0.012 X10*3/uL [facility] Blood Venous blood specimen / Unknown 07/21/2024 2:50 PM EDT 07/21/2024 4:18 PM EDT us Suzy Mabry MD LAB BLOOD ORDERABLES Final Resul t [facility] [address] [place] [phone] documented in this encounter Visit Diagnoses [...] documented as of this encounter Care Teams Balance Recesser Relationship Specialty Start Date End Date Suzy Mabry MD [address] [place] [phone] PCP - General Family Medicine 10/05/18 documented as of this encounter
--- OUTSIDE RECORDS SUMMARY | 2025-07-05 16:12 | XMS_ITS | Clinical Summary ---
Author Organization [facility] Address [address] [place] [phone] Phone Care Team Providers Care Area Manager Name Role Phone Unavailable Primary Care Provider [...] Influenza Vaccines (#1) 2025 07/28/2013 COVID-19 Vaccine (2024- season) 2025 MMR Vaccines Completed 06/04/1996, 08/04/1990 [...]
--- OUTSIDE RECORDS SUMMARY | 2025-07-05 16:12 | XMS_ITS | Encounter Summary ---
Author Organization [facility] Address [address] [place] [address] Phone Care Team Providers Care Window Treatment Installer Name Role Phone Rigoberto Carias MD Primary Care Provider [phone] Encounter Details Date Type Department Care Team (Late st Contact Info) Description 11/05/2011 Documentation [facility] [place] [address] [place] [address] Family Medicine, Physician [address] [place] [address] Social History Tobacco Use Types [...] on filedocumented in this encounter Care Teams Window Treatment Installer Relationship Specialty Start Date End Date Rigoberto Carias MD [address] [facility] [place] [address] PCP - General 05/15/17 03/11/23 documented as of this encounter
--- OUTSIDE RECORDS SUMMARY | 2025-07-05 16:12 | XMS_ITS | Encounter Summary ---
Author Organization [facility] Address [address] [place] [address] Phone Care Team Providers Care Senior Database Programmer Name Role Phone Rigoberto Carias MD Primary Care Provider [phone] Encounter Details Date Type Department Care Team (Late st Contact Info) Description 05/18/2012 Documentation [facility] [place] [address] [place] [address] Family Medicine, Physician [address] [place] [address] Social History Tobacco Use Types [...] on filedocumented in this encounter Care Teams Senior Database Programmer Relationship Specialty Start Date End Date Rigoberto Carias MD [address] [facility] [place] [address] PCP - General 05/15/17 03/11/23 documented as of this encounter
--- OUTSIDE RECORDS SUMMARY | 2025-07-05 16:12 | XMS_ITS | Encounter Summary ---
Author Organization [employer] Address [address] [facility] 7t [place] [address] Care Team Providers Care Brim And Crown Presser Name Role Phone Suzy Mabry MD Primary Care Provider [phone] Encounter Details Date Type Department Care Team ([facility] st Contact Info) Description 05/23/2025 Telephone [facility] MEDICINE [address] [place], [place] [phone] Suzy Mabry MD [address] [place], [place] [phone] Social History Tobacco Use Types Packs/Day Years [...] documented as of this encounter Care Teams Brim And Crown Presser Relationship Specialty Start Date End Date Suzy Mabry MD [address] [place] [address] PCP - General Family Medicine 10/05/18 documented as of this encounter
--- OUTSIDE RECORDS SUMMARY | 2025-07-05 16:12 | XMS_ITS | Encounter Summary ---
Author Organization [employer] Address [address] [place] [address] 7 [place] [address] Care Team Providers Care Fruit I Farmworker Name Role Phone Suzy Mabry MD Primary Care Provider [phone] Encounter Details Date Type Department Care Team (Late st Contact Info) Description 05/01/2023 Abstract [facility] MEDICINE [address] [place], [place] [phone] Suzy Mabry MD [address] [place], [place] [phone] Social History Tobacco Use Types Packs/Day Years [...] documented as of this encounter Care Teams Fruit I Farmworker Relationship Specialty Start Date End Date Suzy Mabry MD [address] [place] [address] PCP - General Family Medicine 10/05/18 documented as of this encounter
--- OUTSIDE RECORDS SUMMARY | 2025-07-05 16:12 | XMS_ITS | Encounter Summary ---
Author Organization [employer] Address [address] [place] [address] 7 [place] [address] Care Team Providers Care Lodging Facilities Attendant Name Role Phone Suzy Mabry MD Primary Care Provider [phone] Reason for Referral * Consultation (Routine) - Closed Specialty Diagnoses / Procedures Referred By Contac t Referred To Contact Optometry Diagnoses Visual impairment Suzy Mabry MD [address] [place] [address] Phone: tel: fax: [facility] OPTOMETRY [address] [place] [address] Phone: tel: fax: Referral ID Status Reason Start Date Expiration Date V isits Requested Visits Authorized [id number] Closed Consult and Treat 08/02/2024 08/02/2025 1 1 Encounter Details Date Type Department Care Team (Late st Contact Info) Description 07/26/2024 Orders Only [facility] MEDICINE [address] [place] [address] Suzy Mabry MD [address] [place], [place] [phone] Visual impairment (Primary Dx) Social History Tobacco [...] Associated Diagnoses Orde r Schedule Referral to [facility] Eye Care Outpatient Referral Routine Visual impairment Expected: 08/02/2024 (Approximate), Expires: 08/02/2025 documented as of this encounter Visit Diagnoses Diagnosis Visual impairment- Primary Unspecified visual loss documented in this encounter Additional Health Concerns Assessment Noted Time PHQ-9 Depression Total Score: 0 04/09/20 23 11:11 AM EDT documented as of this encounter Care Teams Lodging Facilities Attendant Relationship Specialty Start Date End Date Suzy Mabry MD [address] [place] [address] PCP - General Family Medicine 10/05/18 documented as of this encounter
--- OUTSIDE RECORDS SUMMARY | 2025-07-05 16:12 | XMS_ITS | Encounter Summary ---
Author Organization [employer] Address [address] [place] [address] 7t [place] [address] Care Team Providers Care Travel Registered Nurse Icu Name Role Phone Suzy Mabry MD Primary Care Provider [phone] Encounter Details Date Type Department Care Team ([facility] st Contact Info) Description 07/06/2023 Abstract [facility] MEDICINE [address] [place], [place] [phone] [place] Fuller Social History Tobacco Use Types [...] documented as of this encounter Care Teams Travel Registered Nurse Icu Relationship Specialty Start Date End Date Suzy Mabry MD [address] [place] [address] PCP - General Family Medicine 10/05/18 documented as of this encounter
== END 2025-07-05 16:21 | disposition home or self-care (01) ==
LOC: HO.HWS 15:11
PROVIDERS: PCP Family Medicine; Visit Provider Advanced Practice Midwife
DX: Z01.419 Encounter for gynecological examination (general) (routine) without abnormal findings (principal); N92.0 Excessive and frequent menstruation with regular cycle; N39.0 Urinary tract infection, site not specified
CPT/HCPCS: 99396

== ENCOUNTER 2025-07-05 15:54 | Outpatient (REF) | payer MEDICAID, SELFPAY ==
[2025-07-05 17:20] LABS: Hematocrit 32.5 % (37.0-47.0); Hemoglobin 10.6 g/dl (12.0-16.0); Mean Corpuscular HGB Conc 32.6 g/dl (31.0-35.0); Mean Corpuscular Hemoglobin 24.3 pg (27.0-33.0); Mean Corpuscular Volume 74.4 fL (80.0-98.0); NRBC Abs Auto 0.000 X10*3/uL (0.0-0.012); NRBC Pct Auto 0.0 /100WBC (0.0-0.2); Platelet Count 291 X10*3/uL (160-400); Red Blood Count 4.37 X10*6/uL (4.20-5.50); White Blood Count 7.8 X10*3/uL (4.8-10.8)
[2025-07-05 17:57] LABS: Thyroid Stimulating Hormone 0.65 uIU/mL (0.32-4.0)
[2025-07-06 04:30] LABS: Syphilis Screen Nonreactive (Nonreactive)
[2025-07-06 05:05] LABS: HBc Num1 0.15 S/CO (0.00-0.79); HIV Num 1 0.05 S/CO (0.00-0.99); ~HepC Num1 0.13 S/CO (0.00-0.79); ~Hepatitis C Antibody Nonreactive (Nonreactive)
[2025-07-10 14:28] LABS: Vitamin D 25-OH, D2 <4 ng/mL; Vitamin D 25-OH, D3 23 ng/mL; Vitamin D 25-OH, Total 23 ng/mL (30-100)
== END 2025-07-05 15:55 | disposition home or self-care (01) ==
LOC: HO.LNP 15:54
PROVIDERS: Visit Provider Advanced Practice Midwife
DX: N92.1 Excessive and frequent menstruation with irregular cycle (principal); N92.0 Excessive and frequent menstruation with regular cycle; R23.2 Flushing; Z20.2 Contact with and (suspected) exposure to infections with a predominantly sexual mode of transmission; Z11.4 Encounter for screening for human immunodeficiency virus [HIV]; Z11.59 Encounter for screening for other viral diseases
CPT/HCPCS: 82306; 84443; 85027; 86704; 86780; 86803; 87389

== ENCOUNTER 2025-07-12 10:22 | Outpatient (AMB) | payer MEDICAID, SELFPAY ==
--- NOTE | 2025-07-12 10:30 | A.OFFVIS_ITS ---
Vital Signs 07/12/25 10:31 Height 5 ft 5 in Weight 148 lb BMI 24.6 BP 110/72 Intake Visit Reasons: ultra sound / lab follow up Top Screw Required: No Information Interpreted: non-clinical & clinical Actuarial Science Professor: Actuarial Science Professor Present Accompanied by: Self / Same As Patient Allergies No Known Allergies (No Known Allergies*) Allergy (Verified 07/12/25 10:38) Is last menstrual period known: Yes Last menstrual period: 06/24/25 HPI Comments Details: Patient is here today for a follow up on her lab work. History of heavy menses, brain fog, fatigue. She reports her last cycle is only 4 days and she prefers to observe for bleeding at this time and not start any interventions. She has started to take her iron and vitamin-D supplements. History of tubal ligation. [facility] Medical History Vitamin D deficiency Heavy menses Possible exposure to STD Bleeding hemorrhoids Asthma Family history of ovarian cancer Family history of breast cancer Hx of lipoma Surgical History History of hernia surgery H/O tubal ligation Family History Paternal Aunt Hx of breast cancer Hx of ovarian cancer Maternal Aunt History of uterine cancer Father History of prostate cancer Paternal Grandmother History of colon cancer Paternal Uncle History of prostate cancer Social History Household Members: Children Housing: Apartment Alcohol intake: never Patient Tobacco Use Status: Never used Tobacco Current occupational status: employed 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 Sexual orientation: Straight/Heterosexual Gender identity: Female Female Reproductive History Menstrual Age of Menarche: 10 Duration of menses: 3-5 days Date of last menstrual period: 06/24/25 Review of Systems Const All systems reviewed & are unremarkable except as noted in HPI and below Endo Reports no additional complaints Physical Exam Vital Signs: Last Vital Signs BP 110/72 07/12/25 10:31 BMI result Body Mass Index 24.6 Const General: cooperative, healthy appearing and no acute distress Psych Appearance: well kempt Attitude: cooperative Thought process: Normal thought process present Assessment & Plan Assessment & Plan (1) Vitamin D deficiency: Code(s): E55.9 - Vitamin D deficiency, unspecified Category: Medical Plan: Counseled regarding taking vitamin-D supplements and plan follow up D level in 5 months. The patient expressed understanding and agreement with the plan of care. All of her questions and concerns were addressed to the best of my ability. (2) Heavy menses: Code(s): N92.0 - Excessive and frequent menstruation with regular cycle Category: Medical Qualifiers: Menorrhagia type: with regular cycle Qualified Code(s): N92.0 - Excessive and frequent menstruation with regular cycle Plan: Monitor menstrual cycles, report any unscheduled bleeding, bleeding episodes <24 days apart or heavy/prolonged menstrual bleeding. Call the office for a follow up for any concerns. Continue taking ferrous sulfate supplements, reviewed med use. The patient expressed understanding and agreement with the plan of care. All of her questions and concerns were addressed to the best of my ability. Annual exam scheduled July 2026. (3) Anemia: Code(s): D64.9 - Anemia, unspecified Plan This note is constructed using voice recognition software. While every effort has been made to ensure accuracy, boiler service technician errors may have been included. Orders: Orders Vitamin D 25-OH (D2 and D3) 5 Months E55.9 - Vitamin D deficiency, unspecified Coding Level of Care Code Est Pt Level 3 (65871) Diagnoses Vitamin D deficiency E55.9 Menorrhagia with regular cycle N92.0 Menorrhagia type: with regular cycle Anemia D64.9
[2025-07-12 10:31] VITALS: BP 110/72; BMI 24.6
== END 2025-07-12 11:09 | disposition home or self-care (01) ==
PROVIDERS: PCP Family Medicine; Visit Provider Advanced Practice Midwife
DX: E55.9 Vitamin D deficiency, unspecified (principal); N92.0 Excessive and frequent menstruation with regular cycle; D64.9 Anemia, unspecified
CPT/HCPCS: 99213

== ENCOUNTER → 2025-07-12 10:22 | Outpatient (BNVA) | payer MEDICAID, SELFPAY | PROVIDERS: PCP Family Medicine; Visit Provider Advanced Practice Midwife | DX: Z71.2 Person consulting for explanation of examination or test findings (principal); E55.9 Vitamin D deficiency, unspecified; N92.0 Excessive and frequent menstruation with regular cycle | CPT/HCPCS: 99212 ==

== ENCOUNTER 2025-08-16 08:57 | Emergency (ER) | payer MEDICAID, SELFPAY ==
--- NOTE | ~2025-08-16 | XR_ITS ---
EXAMINATION: XR CHEST CLINICAL INFORMATION: Leukocytosis. General weakness COMPARISON: April 14, 2018 TECHNIQUE: Frontal view of the chest was obtained. FINDINGS: There is no pneumothorax. Lungs are clear and well expanded. Cardiac and mediastinal silhouette is within normal limits. There is no evidence of pleural effusion. XR/XR chest 1V IMPRESSION: No acute disease. Electronically signed by: Malcolm Campbell MD 08/16/2025 11:06 AM ETHAN
--- NOTE | ~2025-08-16 | CT_ITS ---
EXAMINATION: CT ABDOMEN PELVIS WITH IV CONTRAST HISTORY: Leukocytosis. Generalized weakness. Diarrhea. COMPARISON: Previous CT of the abdomen and pelvis April 2021 and pelvic ultrasound September 2024 TECHNIQUE: CT scan of the abdomen and pelvis was performed following administration of 85 mL Omnipaque 350 using standard departmental protocol. Coronal and sagittal reformatted images were generated and reviewed. This CT exam was performed with one or more of the following dose reduction techniques: automated exposure control, adjustment of the mA and/or kV according to patient size, use of iterative reconstruction technique. DLP: 411 mGy-cm FINDINGS: LOWER CHEST: The visualized lung bases are clear. There is no pleural effusion. CARDIOVASCULATURE: The heart is normal in size. There is no pericardial effusion. LIVER: The liver is normal in size and contour. No liver mass is identified. The hepatic and portal veins are patent. GALLBLADDER / BILE DUCTS: The gallbladder is attracted.. There is no intra or extrahepatic biliary ductal dilatation. SPLEEN: The spleen is normal in size. No focal splenic lesion is identified. PANCREAS: The pancreas is unremarkable in appearance. ADRENAL GLANDS: Within normal limits. KIDNEYS/RETROPERITONEUM: No renal calculi are identified. There is no hydronephrosis. No renal masses are identified. LYMPH NODES: No abdominal or pelvic lymphadenopathy. VASCULATURE: The abdominal aorta is normal in caliber. MESENTERY/PERITONEUM: No free fluid. No masses. There is no free intraperitoneal gas. STOMACH: Normal SMALL BOWEL: The small bowel is normal in caliber. COLON: The colon is unremarkable. APPENDIX: Normal. URINARY BLADDER/PELVIC ORGANS: The urinary bladder is unremarkable. Uterus and adnexa are normal. BONES / SOFT TISSUES: Small umbilical hernia containing fat. Bony structures are unremarkable. CT/CT abdomen pelvis w IV con IMPRESSION: No acute findings. Small umbilical hernia containing fat. Electronically signed by: Margaret Muniz MD 08/16/2025 11:24 AM EST
[2025-08-16 09:13] VITALS: BP 105/63; PULSE 105; RESP 14; TEMP 37.3; O2SAT 100; BMI 25.1
--- NOTE | 2025-08-16 09:26 | ED_ITS ---
HPI - Nausea/Vomiting/Diarrhea General Chief complaint: Nausea/Vomiting/Diarrhea Stated complaint: Fever Body Aches Time Seen by Provider: 08/16/25 09:03 Source: patient, RN notes reviewed and old records reviewed Mode of arrival: ambulatory History of Present Illness ED Provider: [place] PA-C HPI Narrative: 40-year-old female with a past medical history asthma, presenting to the ED complaining of myalgias, fatigue, sore throat, headache, subjective fever, chills, decreased p.o. intake x 2 days. Admits to eating Chipotle on Thursday afternoon friend developed non bloody/nonmelanotic diarrhea, resolved at present. Reports decreased p.o. intake secondary to sore throat. Denies recent travel, sick contacts, abdominal pain, vomiting, dysuria/hematuria, rash Related Data Home Medications ?Medication ?Instructions ?Recorded ?Confirmed multivitamin (Daily Multi-Vitamin 1 tab PO DAILY 06/2712/22/24 tablet) omega-3 fatty acids 500 mg capsule 500 mg PO DAILY 10/29 vit B complex 100 combo no.2 100 tab PO 07/05/25 mg tablet,extended release (B-100 Complex ER) Previous Rx's ?Medication ?Instructions ?Recorded ferrous sulfate 325 mg (65 mg 325 mg PO DAILY anemia 3 0 days #30 07/10/25 iron) tablet,delayed release tabs fluconazole 150 mg tablet 150 mg PO DAILY 1 dose #1 ta b 07/10/25 cholecalciferol (vitamin D3) 25 25 mcg PO DAILY 3 rohit hs #90 caps 07/11/25 mcg (1,000 unit) capsule ondansetron 4 mg disintegrating 4 mg PO Q8H PRN nausea and 08/16/25 tablet vomiting #10 tabs Allergies Allergy/AdvReac Type Severity Reaction Status Date / Time No Known Allergies (No Known Allergy Verified 08/16/25 09:14 Allergies*) Review of Systems 2 Review of Systems: Yes all other systems are reviewed and are negative Constitutional: Constitutional: Reports as per HPI [facility] Past Medical History Attestation statement: The following information was validated with the patient. Source: old records reviewed Medical History Vitamin D deficiency Heavy menses Possible exposure to STD Bleeding hemorrhoids Asthma Family history of ovarian cancer Family history of breast cancer Hx of lipoma Surgical History History of hernia surgery H/O tubal ligation Family History Family History Paternal Aunt Hx of breast cancer Hx of ovarian cancer Maternal Aunt History of uterine cancer Father History of prostate cancer Paternal Grandmother History of colon cancer Paternal Uncle History of prostate cancer Social History Social History Household Members: Children Housing: Apartment Alcohol intake: never Patient Tobacco Use Status: Never used Tobacco Advance Directives: No Advance Directives Information Provided: No Do you have a plan to hurt others: No Plan Current occupational status: employed Current occupation: [employer] Sexual orientation: Straight/Heterosexual Gender identity: Female Physical Exam 2 Vital Signs: Vital Signs: Last Vital Signs Temp 98.9 F 08/16/25 14:33 Pulse 79 08/16/25 14:33 Resp 16 08/16/25 14:33 BP 109/70 08/16/25 14:33 Pulse Ox 100 08/16/25 14:33 O2 Del Method Room Air 08/16/25 14:33 BMI result Body Mass Index 25.1 Const: General: cooperative, healthy appearing and no acute distress O rientation/consciousness: patient oriented x3 Limitations: no limitations HEENT: Head: Yes normal to inspection and Yes atraumatic Ears: hearing grossly normal bilaterally General nose exam: Normal external nose present Face and sinus: Yes normal facial exam Mouth: no muffled voice Throat: Yes uvula midline, Yes abnormal tonsil (+ bilateral tonsillar erythema/swelling and exudates), No uvula laterally displaced and No uvular edema Eyes: General: appearance normal, both eyes and all related structures EOM: EOMs intact bilaterally Neck: Other: + submandibular lymphadenopathy Neck: Yes normal visual inspection and Yes no meningeal signs Resp: Effort & Inspection: normal respiratory effort and no respiratory distress Auscultation: clear to auscultation bilaterally Cardio: Rate: regular rate Heart sounds: S1 normal heart sound present and S2 normal heart sound present GI: Inspection: Yes normal to inspection Palpation (GI): Soft to palpation, nontender, no guarding and not rigid : General: Yes no CVA tenderness Back/Spine/Pelvis: Back: no CVA tenderness Skin: Rashes: no rashes Wounds: no wounds Neuro: General: patient oriented x3, tone normal and no meningeal signs C ranial nerves: Yes CN's II-XII intact bilaterally Gait exam (Neuro): Normal gait present Extrem: General: Yes normal to inspection Course Course Course Narrative: -1028--leukocytosis of 18.4 > will obtain lactic/blood cultures and give empiric Rocephin. > will obtain CXR and CT AP for further eval. Patient denies any recent steroid use. -chronic anemia. Potassium low at 3.1 > we will give p.o. repletion. Labs otherwise reassuring -UA with blood, patient currently on menses. Not infected -COVID/flu/RSV and rapid strep negative -1215--lactic acid wnl XR chest 1V IMPRESSION: No acute disease. CT abdomen pelvis w IV con IMPRESSION: No acute findings. Small umbilical hernia containing fat. -patient unable to tolerate potassium liquid will change to pills. Reports continued headache. We will give additional pain control and p.o. trial -1400--patient tolerated p.o. in the ED without difficulty. Plan for discharge home with close PCP follow-up. Results discussed with patient including worrisome signs and symptoms and strict return precautions, and when to return to the emergency department. They verbalized understanding and feel safe for discharge at this time. Medications Administered Discontinued Medications Generic Name Dose Route Start Last Admin Trade Name Freq PRN Reason Stop Dose Admin Acetaminophen/Butalbital/Caffeine 1 tab 08/16/25 10:27 08/16/25 10:47 Butalb/Acetamin/Caff 50/325/40 Tablet PO 08/16/25 10:28 1 tab ONCE ONE Administration Diphenhydramine HCl 50 mg 08/16/25 11:04 08/16/25 11:08 Diphenhydramine Hcl 50 Mg/Ml Vial IVPUSH 08/16/25 11:05 50 mg ONCE ONE Administration Sodium Chloride 1,000 mls @ 999 mls/hr 08/16/25 09:15 08/16/25 11:14 Ns IV 08/16/25 10:15 Infused .Q1H1M TASHA Infusion Ceftriaxone Sodium 1 gm/ 50 mls @ 100 mls/hr 08/16/25 10:27 08/16/25 11:24 Sodium Chloride IV 08/16/25 10:56 Infused ONCE ONE Infusion Sodium Chloride 1,000 mls @ 999 mls/hr 08/16/25 11:00 08/16/25 12:12 Ns IV 08/16/25 12:00 Infused .Q1H1M TASHA Infusion Iohexol 100 ml 08/16/25 10:55 08/16/25 10:55 Iohexol 350 Mg/Ml 100 Ml Infus..Btl IV 08/16/25 10:56 85 ml ONCE ONE Administration Ketorolac Tromethamine 15 mg 08/16/25 09:13 08/16/25 09:29 Ketorolac Tromethamine 15 Mg/Ml Vial IVPUSH 08/16/25 09:14 15 mg ONCE ONE Administration Ketorolac Tromethamine 15 mg 08/16/25 12:19 08/16/25 12:40 Ketorolac Tromethamine 15 Mg/Ml Vial IVPUSH 08/16/25 12:20 15 mg ONCE ONE Administration Metoclopramide HCl 10 mg 08/16/25 11:44 08/16/25 11:47 Metoclopramide Hcl 10 Mg/2 Ml Vial IVPUSH 08/16/25 11:45 10 mg ONCE ONE Administration Ondansetron HCl 4 mg 08/16/25 09:13 08/16/25 09:29 Ondansetron Hcl 4 Mg/2 Ml Vial IVPUSH 08/16/25 09:14 4 mg ONCE ONE Administration Potassium Chloride 40 meq 08/16/25 10:35 08/16/25 10:47 Potassium Chloride Packet 20 Meq Packet PO 08/16/25 10:36 40 meq ONCE ONE Administration Potassium Chloride 40 meq 08/16/25 12:19 08/16/25 12:39 Potassium Chloride Er 20 Meq Tab.Er.Prt PO 08/16/25 12:20 40 meq ONCE ONE Administration Medical Decision Making Medical Decision Making MDM Narrative: 40-year-old female with a past medical history asthma, presenting to the ED complaining of myalgias, fatigue, sore throat, headache, subjective fever, chills, decreased p.o. intake x 2 days. On exam mildly tachycardic, low-grade temp 99.1 degrees, NAD/nontoxic appearing, physical exam as noted above. Bilateral tonsillar erythema/swelling and exudates noted. Abdomen is soft and nontender. Concern for strep pharyngitis vs viral illness vs gastroenteritis/food poisoning. No evidence of URGENT CARE/retropharyngeal abscess. Low suspicion for appendicitis/diverticulitis or cholecystitis without tenderness on exam. Low suspicion for severe sepsis Plan: Labs, UA, viral testing, rapid strep, pain control, IVF, p.o. trial, re- evaluate Please refer to course for remaining clinical decision making, interpretation of labs/imaging results, and discussions with consultants and/or family members. Differential Diagnosis Differential Diagnoses: The differential diagnosis associated with the presentation includes As above Admission/Observation Consideration of admission/observation: Escalation of care including admission/observation considered Lab Data MDM Lab Attestation statement: I reviewed the patient's lab results. 08/16/25 09:30 08/16/25 09:30 Labs: Lab Results 08/16/25 08/16/25 Range/Units 09:30 10:39 WBC 18.4 H (4.8-10.8) X10*3/uL RBC 4.45 (4.20-5.50) X10*6/uL Hgb 10.9 L (12.0-16.0) g/dl Hct 32.4 L (37.0-47.0) % MCV 72.8 L (80.0-98.0) fL MCH 24.5 L (27.0-33.0) pg MCHC 33.6 (31.0-35.0) g/dl RDW 14.1 (11.0-16.0) % Plt Count 223 (160-400) X10*3/uL MPV 10.5 (9.4-12.3) fL Immature Gran % (Auto) 0.9 H (0.0-0.4) % Neut % (Auto) 84.0 H (45-73) % Lymph % (Auto) 7.6 L (20-40) % [place] % (Auto) 7.0 (2-11) % Eos % (Auto) 0.0 (0-4) % Baso % (Auto) 0.5 (0-2) % Lymph # (Auto) 1.4 (1.2-4.9) X10*3/uL [place] # (Auto) 1.3 H (0.1-1.2) X10*3/uL Eos # (Auto) 0.0 (0.0-0.4) X10*3/uL Baso # (Auto) 0.1 (0.0-0.2) X10*3/uL Abs Immat Gran (auto) 0.16 H (0.00-0.03) X10*3/uL Absolute Neuts (auto) 15.4 H (2.0-8.3) x10*3/uL Absolute Nucleated RBC 0.000 (0.0-0.012) X10*3/uL Nucleated RBC % (auto) 0.0 (0.0-0.2) /100WBC Sodium 138 (135-145) mmol/L Potassium 3.1 L (3.3-5.1) mmol/L Chloride 105 (96-108) mmol/L Carbon Dioxide 22 (22-29) mmol/L Anion Gap 14 (12-20) BUN 7 L (9-16) mg/dL Creatinine 0.71 (0.5-1.4) mg/dL Estim Creat Clear Calc 102.3 Estimated GFR > 60 Random Glucose 99 (60-115) mg/dL Lactic Acid 0.8 (0.5-2.0) mmol/L Calcium 8.8 (8.4-10.2) mg/dL Magnesium 1.8 (1.6-2.6) mg/dL Total Bilirubin 1.2 H (0.0-1.0) mg/dL Direct Bilirubin 0.4 (0.0-0.5) mg/dL AST 18 (5-31) U/L ALT 10 (0-31) U/L Alkaline Phosphatase 68 (39-117) U/L Total Protein 7.9 (6.5-8.0) g/dL Albumin 4.2 (3.5-5.0) g/dL Urine Color Dark Yellow Urine Appearance Clear Urine pH 5.5 (5.0-9.0) Ur Specific Earling >= 1.030 H (1.005-1.025) Urine Protein 100 (2+) H (Neg-Trace) mg/dL Urine Glucose (UA) Negative (Negative) mg/dL Urine Ketones 40 (Negative) mg/dL Urine Blood Large (3+) H (Negative) Urine Nitrite Negative (Negative) Ur Leukocyte Esterase Trace H (Negative) Urine RBC 3-5 H (0-2) /HPF Urine WBC 0-5 (0-5) /HPF Ur Squamous Epith Cells 6-10 (0-2) /HPF Urine Bacteria None Seen (None Seen) Hyaline Casts 0-2 (0-2) /LPF Urine Test NEGATIVE (NEGATIVE) Monoscreen Negative (Negative) Influenza Type A (PCR) NEGATIVE (Negative) Influenza Type B (PCR) NEGATIVE (Negative) RSV RNA Qual (PCR) NEGATIVE (Negative) SARS-CoV-2 RNA (RT-PCR) NEGATIVE (Negative) S. pyogenes GrpA MICHAEL Negative (Negative) Radiology Impression Discussion of test interpretation with radiology: I have reviewed the radiologist's reading. External Record Review External record reviewed: Inpatient record, Office record, Outpatient record, Prior outpatient labs, Prior outpatient radiology, Primary care record and Outside ED record Tests considered The following testing was considered but not selected: As above Prescription Management I considered prescription management with: Pain Medication and Antibiotic Chronic Conditions Patient?s care impacted by: Other Social Determinants Patient?s care significantly limited by Social Determinants of Health including: Other Social Determinant of Health Critical Care Time Critical Care Time Critical Care Time: Yes Total Critical Care Time: 45 Attestation: I have personally provided critical care time exclusive of time spent on separately billable procedures. Time includes review of lab data, radiology results, discussion with consultants, and monitoring for potential decompensation. Intervention performed as documented. Discharge Plan Discharge Clinical Impression: Acute viral syndrome, Gastroenteritis Patient Disposition: Home, Self-Care Instructions: Viral Syndrome (ED) Additional Instructions: Your blood work and imaging studies are reassuring Zofran as an antinausea medication, please take as needed for nausea and vomiting Practice a bland diet If her symptoms persist or worsen, you spike fever, you are unable to eat or drink have fever or chills return to the emergency department Prescriptions: New ondansetron 4 mg tablet,disintegrating 4 mg PO Q8H PRN (Reason: nausea and vomiting) Qty: 10 0RF No Action fluconazole 150 mg tablet 150 mg PO DAILY Qty: 1 0RF Rx Instructions: administer on day 1 of therapy ferrous sulfate 325 mg (65 mg iron) tablet,delayed release (DR/EC) 325 mg PO DAILY 30 Days Qty: 30 1RF cholecalciferol (vitamin D3) 25 mcg (1,000 unit) capsule 25 mcg PO DAILY 90 Days Qty: 90 1RF multivitamin [Daily Multi-Vitamin] Tablet 1 tab PO DAILY omega-3 fatty acids 500 mg capsule 500 mg PO DAILY B-100 Complex 100 mg tablet extended release PO Referrals: Suzy Mabry MD [Primary Care Provider, Internal Medicine] - 5 days Interventions: ED Discharge Assessment Last Done: 08/16/25 14:33 Discharge Date/Time: 08/16/25 14:50 Print Language: Estonian
[2025-08-16 09:41] LABS: MANUAL DIFF FLAG NO
[2025-08-16 09:44] LABS: Appearance Urine Clear; Glucose Urine UA Negative (Negative); PH 5.5 (5.0-9.0); Specific Gravity - Urine >= 1.030 (1.005-1.025); UMIC TRIGGER UACC YES
[2025-08-16 09:46] LABS: Hematocrit 32.4 % (37.0-47.0); Hemoglobin 10.9 g/dl (12.0-16.0); Imm Gran Abs Auto 0.16 X10*3/uL (0.00-0.03); Imm Gran Pct Auto 0.9 % (0.0-0.4); Lymphocytes Absolute Auto 1.4 X10*3/uL (1.2-4.9); Mean Corpuscular HGB Conc 33.6 g/dl (31.0-35.0); Mean Corpuscular Hemoglobin 24.5 pg (27.0-33.0); Mean Corpuscular Volume 72.8 fL (80.0-98.0); NRBC Abs Auto 0.000 X10*3/uL (0.0-0.012); NRBC Pct Auto 0.0 /100WBC (0.0-0.2); Platelet Count 223 X10*3/uL (160-400); Red Blood Count 4.45 X10*6/uL (4.20-5.50); UPreg QC Valid YES; White Blood Count 18.4 X10*3/uL (4.8-10.8)
[2025-08-16 09:56] LABS: IDNOW Serial# 6674DD1D; Strep A Nucleic Acid Negative (Negative)
[2025-08-16 10:17] LABS: Alanine Aminotransferase 10 U/L (0-31); Albumin Level 4.2 g/dL (3.5-5.0); Alkaline Phosphatase 68 U/L (39-117); Anion Gap 14 (12-20); Aspartate Amino Transferase 18 U/L (5-31); Blood Urea Nitrogen 7 mg/dL (9-16); Calcium 8.8 mg/dL (8.4-10.2); Carbon Dioxide 22 mmol/L (22-29); Chloride 105 mmol/L (96-108); Creatinine Clr Calc Pharmacy 102.3; Estimated Glomerular Filt Rate > 60; Magnesium 1.8 mg/dL (1.6-2.6); Potassium 3.1 mmol/L (3.3-5.1); Sodium 138 mmol/L (135-145); Total Protein 7.9 g/dL (6.5-8.0)
[2025-08-16 10:20] LABS: Resp Syncy Virus RNA Qual PCR NEGATIVE (Negative); SARS COV2 PCR INHOUSE NEGATIVE (Negative)
[2025-08-16] MEDS: Potassium Chloride Packet 20 MEQ PACKET 40 MEQ PO (10:47)
[2025-08-16] MEDS: Butalb/Acetamin/Caff 50/325/40 TABLET 1 TAB PO (10:47)
[2025-08-16 10:48] VITALS: BP 94/57; PULSE 97; RESP 16; TEMP 37.2; O2SAT 97
[2025-08-16] MEDS: iohexoL 350 MG/ML 100 ML INFUS..BTL IV (10:55)
[2025-08-16 11:41] VITALS: BP 108/75; PULSE 80; RESP 16; O2SAT 100
[2025-08-16] MEDS: Potassium Chloride ER 20 MEQ TAB.ER.PRT 40 MEQ PO (12:39)
[2025-08-16 14:07] VITALS: BP 109/70; PULSE 79; RESP 16; O2SAT 100
[2025-08-16 14:33] VITALS: BP 109/70; PULSE 79; RESP 16; TEMP 37.2; O2SAT 100
== END 2025-08-16 14:50 | disposition home or self-care (01) ==
PROVIDERS: Physician Assistant; Emergency Provider Emergency Medicine; PCP Family Medicine
DX: K52.9 Noninfective gastroenteritis and colitis, unspecified (principal); B34.9 Viral infection, unspecified; J45.909 Unspecified asthma, uncomplicated
CPT/HCPCS: 36415; 71045; 74177; 80048; 80076; 81001; 81025; 83605; 83735; 85025; 86308; 87040; 87637; 87651; 96361; 96365; 96375; 96376; 99284; 99285; J0696; J1200; J1885; J2405; J2765; Q9967

== ENCOUNTER → 2025-08-16 10:29 | Outpatient (BNV) | payer MEDICAID, SELFPAY | PROVIDERS: Emergency Provider Emergency Medicine; PCP Family Medicine; Visit Provider Radiology Diagnostic Radiology | DX: D72.829 Elevated white blood cell count, unspecified (principal); M62.81 Muscle weakness (generalized) | CPT/HCPCS: 71045; 74177 ==

== ENCOUNTER 2025-08-21 09:37 | Outpatient (REF) | payer MEDICAID, SELFPAY ==
[2025-08-21 11:44] LABS: MANUAL DIFF FLAG NO
[2025-08-21 12:10] LABS: Hematocrit 33.7 % (37.0-47.0); Hemoglobin 10.8 g/dl (12.0-16.0); Imm Gran Abs Auto 0.08 X10*3/uL (0.00-0.03); Imm Gran Pct Auto 1.1 % (0.0-0.4); Lymphocytes Absolute Auto 2.2 X10*3/uL (1.2-4.9); Mean Corpuscular HGB Conc 32.0 g/dl (31.0-35.0); Mean Corpuscular Hemoglobin 24.0 pg (27.0-33.0); Mean Corpuscular Volume 74.9 fL (80.0-98.0); NRBC Abs Auto 0.000 X10*3/uL (0.0-0.012); NRBC Pct Auto 0.0 /100WBC (0.0-0.2); Platelet Count 418 X10*3/uL (160-400); Red Blood Count 4.50 X10*6/uL (4.20-5.50); Reticulocytes Absolute 0.079 X10*6/uL (0.026-0.095); White Blood Count 7.1 X10*3/uL (4.8-10.8)
[2025-08-21 12:47] LABS: Alanine Aminotransferase 12 U/L (0-31); Albumin Level 4.6 g/dL (3.5-5.0); Alkaline Phosphatase 68 U/L (39-117); Anion Gap 11 (12-20); Aspartate Amino Transferase 19 U/L (5-31); Blood Urea Nitrogen 7 mg/dL (9-16); Calcium 9.5 mg/dL (8.4-10.2); Carbon Dioxide 29 mmol/L (22-29); Chloride 104 mmol/L (96-108); Estimated Glomerular Filt Rate > 60; Iron 42 mcg/dL (30-160); Magnesium 2.2 mg/dL (1.6-2.6); Percent Iron Saturation 14 % (15-50); Potassium 3.9 mmol/L (3.3-5.1); Sodium 140 mmol/L (135-145); Total Iron Binding Capacity 310 mcg/dL (228-428); Total Protein 8.6 g/dL (6.5-8.0); Unsaturated Iron Binding 268 ug/dL
[2025-08-21 13:11] LABS: Ferritin 91 ng/mL (10-250)
[2025-08-21 13:29] LABS: Folate 10.7 ng/mL (> or = 4.0); Vitamin B12 597 pg/mL (200-900)
== END 2025-08-21 09:38 | disposition home or self-care (01) ==
LOC: HO.HHCL 09:37
PROVIDERS: PCP Family Medicine; Visit Provider Family Medicine
DX: Z13.1 Encounter for screening for diabetes mellitus (principal); D50.0 Iron deficiency anemia secondary to blood loss (chronic); E87.6 Hypokalemia; D72.829 Elevated white blood cell count, unspecified; R39.9 Unspecified symptoms and signs involving the genitourinary system
CPT/HCPCS: 36415; 80053; 82607; 82728; 82746; 83036; 83540; 83735; 84443; 85025; 85045; 87086

== ENCOUNTER 2025-09-12 11:15 | Outpatient (AMB) | payer MEDICAID, SELFPAY ==
[2025-09-12 11:28] VITALS: BP 116/74; BMI 24.4
--- NOTE | 2025-09-12 11:28 | A.OFFVIS_ITS ---
Vital Signs 09/12/25 11:28 Height 5 ft 5 in Weight 146 lb 8 oz BMI 24.4 BP 116/74 Blood Pressure Location Rt brachial Position Sitting Intake Visit Reasons: IUD Insert Allergies No Known Allergies (No Known Allergies*) Allergy (Verified 09/12/25 11:28) Is last menstrual period known: Yes Last menstrual period: 09/08/25 HPI Comments Details: Patient is here today for Mirena IUD insertion due to history. UPT is negative. History of tubal ligation. COUNTS INCLUDE 234 BEDS AT THE [facility] Medical History IUD (intrauterine device) in place Vitamin D deficiency Heavy menses Possible exposure to STD Bleeding hemorrhoids Asthma Family history of ovarian cancer Family history of breast cancer Hx of lipoma Surgical History History of hernia surgery H/O tubal ligation Family History Paternal Aunt Hx of breast cancer Hx of ovarian cancer Maternal Aunt History of uterine cancer Father History of prostate cancer Paternal Grandmother History of colon cancer Paternal Uncle History of prostate cancer Social History Household Members: Children Housing: Apartment Alcohol intake: never Patient Tobacco Use Status: Never used Tobacco Current occupational status: employed 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 Sexual orientation: Straight/Heterosexual Gender identity: Female Female Reproductive History Menstrual Age of Menarche: 10 Duration of menses: 3-5 days Date of last menstrual period: 09/08/25 Date of last pap smear: 03/05/22 History of abnormal pap smear: Yes Date of Mammogram: 04/13/25 Review of Systems Const All systems reviewed & are unremarkable except as noted in HPI and below Physical Exam Vital Signs: Last Vital Signs BP 116/74 09/12/25 11:28 BMI result Body Mass Index 24.4 Const General: cooperative, healthy appearing and no acute distress Orientation/consciousness: patient oriented x3 GI Inspection: Yes normal to inspection Palpation (GI): Soft to palpation and Other GI palpation findings present (Nontender) Rectal Exam - Female: visual inspection normal General: Yes bladder normal to palpation External Female Exam: normal appearance of the urethra Speculum Exam - Vagina: normal appearance of the vagina, normal palpation and normal vaginal discharge Speculum Exam - Cervix: normal appearance of the cervix and normal palpation Bimanual exam- vagina & uterus: normal bimanual exam, normal palpation, uterine size normal, bladder normal to palpation, normal palpation, uterine shape normal and non-tender Bimanual Exam- Adnexa, other: normal adnexae Neuro General: patient oriented x3 Office Procedures IUD Insert/Removal Details [id number]-[id number] Insertion Procedure code (CPT) selection complete IUD Insert/Removal Details Details: The patient is here today for a Mirena IUD insertion for AUB. She was counseled on the side effects including: menstrual cycle changes, pain, infection, bleeding, or expulsion. Risks of injury to the vagina, cervix, uterus, tubes, ovaries, bowel, bladder, and any adjacent tissue, resulting in ne rve damage, scarring, and pain. Risks complications for the procedure that may require other test including ultrasounds, Xray, CT or MRI scan, surgery, anesthesia, blood transfusion. A urine test was completed and was negative. She was consented for the IUD insertion and has signed the consent form. All questions were answered. IUD Insertion: The patient was placed in the dorsal lithotomy position and a sterile speculum was inserted. The procedure was completed under aseptic technique. The cervix and vagina were cleansed with a Betadine solution x 3 swabs. A single toothed tenaculum was applied to the cervix for stabilization, and the uterus was sounded to 8 cm. The device was inserted and released with a gentle motion. Bleeding from the tenaculum sites and the procedure were minimal. The strings were trimmed to 3cm. All of the equipment was removed and the bimanual was normal, no tip was palpable at the cervical os. The patient tolerated the procedure well and left the office in good condition. Post IUD Insertion Care: There may be some post insertion bleeding for several days that is usually light and can turn to a light brown or pink in color. Mild cramping may occur. Nothing in the vagina including: tampons, douching or intimacy for several days. You may take an over the counter mild analgesia like Tylenol or Advil (if no allergies), per the manufacturers recommendations on dosing and frequency. Follow the directions completely. Call the office if any: fever (over 100.4), flu like symptoms, abdominal pain, worsening cramping not resolved with over the counter medications, foul smelling vaginal odor, signs of infected appearing discharge, or heavy bleeding. Use a condom for a back up method if indicated for 7 days. Always use a condom for STI prevention; IUD's are not protective against STD's. Return to the office in 4-6 weeks for IUD recheck. This note is constructed using voice recognition software. While every effort has been made to ensure accuracy, door attendant errors may have been included. 69328-GIT Insertion Procedure code (CPT) selection complete Office Meds Mirena 21 mcg/24 hr (up to 8 years) 52 mg intrauterine device Performing Provider: Chantelle Bernal CNM Performing Location: [facility] Administered by: Shayy Montenegro LPN on 09/12/25 13:05 Dose Route Admin Location Dispensed Lot Number Expiration Date [place] [employer] 1 device intrauterine uterus 1 device [id number] 08/04/27 26552-857-88 [facility] Total Dispensed Waste 1 device 0 % Results AMB Test Urine AMB Test Urine Negative Last Edit by Tami Green CMA on 09/12/25 11:37 Results Reviewed Results Reviewed: Laboratory Last Values Tst Clinic Negative 09/12/25 11:36 Assessment & Plan Assessment & Plan (1) Abnormal uterine bleeding (AUB): Code(s): N93.9 - Abnormal uterine and vaginal bleeding, unspecified Category: Medical Plan: See procedure notes. (2) Encounter for IUD insertion: Code(s): Z30.430 - Encounter for insertion of intrauterine contraceptive device Plan: IUD insertion completed. Plan See procedure notes. This note is constructed using voice recognition software. While every effort has been made to ensure accuracy, door attendant errors may have been included. Orders: Orders AMB HCG Urine Test Today Z32.02 - Encounter for test, result negative AMB IUD Insertion/Removal - Patient Supply Today N93.9 - Abnormal uterine and vaginal bleeding, unspecified Coding Level of Care Code Procedure Only Diagnoses Abnormal uterine bleeding (AUB) N93.9 Encounter for IUD insertion Z30.430 CPT Codes Details - CPT: 71061-OYV Insertion ([id number]) Details - CPT: 66351-MPH Insertion ([id number])
== END 2025-09-12 12:08 | disposition home or self-care (01) ==
LOC: HO.HWS 11:15
PROVIDERS: PCP Family Medicine; Visit Provider Advanced Practice Midwife
DX: Z30.430 Encounter for insertion of intrauterine contraceptive device (principal); N93.9 Abnormal uterine and vaginal bleeding, unspecified; Z32.02 Encounter for pregnancy test, result negative
CPT/HCPCS: 58300

== ENCOUNTER → 2025-09-12 11:15 | Outpatient (BNVA) | payer MEDICAID, SELFPAY | PROVIDERS: PCP Family Medicine; Visit Provider Advanced Practice Midwife | DX: Z30.430 Encounter for insertion of intrauterine contraceptive device (principal); N93.9 Abnormal uterine and vaginal bleeding, unspecified; Z32.02 Encounter for pregnancy test, result negative; Z98.51 Tubal ligation status | CPT/HCPCS: 58300; 81025; J7298 ==

== ENCOUNTER 2025-09-24 10:31 | Emergency (ER) | payer MEDICAID, SELFPAY ==
--- NOTE | ~2025-09-24 | US_ITS ---
CLINICAL HISTORY: possible migrated IUD US female pelvis LMP:Unknown. Technique: Ultrasound examination of the pelvis was performed with transabdominal and transvaginal technique for better visualization of the ovaries. Images include: color Doppler and spectral Doppler waveforms. Comparison: US/OR/SR - US PELVIC AND TRANSVAGINAL - 09/07/24 11:30 EST US/OR/SR - US PELVIS TRANSABDOMINAL AND TRANSVAGINAL - 10/15/23 14:37 EST Findings: Anteverted uterus measuring 9.9 x 4.1 x 5.8cm without masses. Intrauterine device in appropriate position. Normal endometrial thickness of 0.1cm. The right ovary is mildly enlarged, measuring 4.8 x 3.2 x 4.2cm, volume of 33.8mL. There is normal echogenicity and arterial/venous vascularity. Simple cyst measuring 4.0 x 2.7 x 3.7 cm.. The left ovary is normal in size, measuring 2.2 x 1.0 x 1.5cm, volume of 1.7mL. There is normal echogenicity and arterial/venous color Doppler and arterial spectral Doppler. No lesions. No free fluid. Impression: Intrauterine device in appropriate position. Enlarged right ovary without torsion secondary to a 4.0 cm simple cyst. No follow up is required. This document has been electronically signed by: Emily Crawford MD on 09/24/2025 13:36:04
[2025-09-24 10:53] VITALS: BP 114/71; PULSE 77; RESP 16; TEMP 36.6; O2SAT 100; BMI 25.0
[2025-09-24 11:11] LABS: Hematocrit 31.4 % (37.0-47.0); Hemoglobin 10.3 g/dl (12.0-16.0); Imm Gran Abs Auto 0.03 X10*3/uL (0.00-0.03); Imm Gran Pct Auto 0.3 % (0.0-0.4); Lymphocytes Absolute Auto 2.3 X10*3/uL (1.2-4.9); MANUAL DIFF FLAG NO; Mean Corpuscular HGB Conc 32.8 g/dl (31.0-35.0); Mean Corpuscular Hemoglobin 24.2 pg (27.0-33.0); Mean Corpuscular Volume 73.7 fL (80.0-98.0); NRBC Abs Auto 0.000 X10*3/uL (0.0-0.012); NRBC Pct Auto 0.0 /100WBC (0.0-0.2); Platelet Count 321 X10*3/uL (160-400); Red Blood Count 4.26 X10*6/uL (4.20-5.50); White Blood Count 9.5 X10*3/uL (4.8-10.8)
[2025-09-24 11:28] LABS: Alanine Aminotransferase 6 U/L (0-31); Albumin Level 4.1 g/dL (3.5-5.0); Alkaline Phosphatase 60 U/L (39-117); Anion Gap 10 (12-20); Aspartate Amino Transferase 18 U/L (5-31); Blood Urea Nitrogen 8 mg/dL (9-16); Calcium 9.1 mg/dL (8.4-10.2); Carbon Dioxide 25 mmol/L (22-29); Chloride 110 mmol/L (96-108); Creatinine Clr Calc Pharmacy 112.1; Estimated Glomerular Filt Rate > 60; Potassium 3.6 mmol/L (3.3-5.1); Sodium 141 mmol/L (135-145); Total Protein 7.1 g/dL (6.5-8.0)
--- OUTSIDE RECORDS SUMMARY | 2025-09-24 11:39 | XMS_ITS | Encounter Summary ---
Author Organization [employer] Address [address] [place] [address] [address] [place] [address] Care Team Providers Care Interior Plant Caretaker Name Role Phone Suzy Mabry MD Primary Care Provider [phone] Encounter Details Date Type Department Care Team ([facility] st Contact Info) Description 07/06/2023 Abstract [facility] [address], [place] [id number] [place] Social History Tobacco Use Types [...] documented as of this encounter Care Teams Interior Plant Caretaker Relationship Specialty Start Date End Date Suzy Mabry MD [address] [place] [address] PCP - General Family Medicine 10/05/18 documented as of this encounter
--- OUTSIDE RECORDS SUMMARY | 2025-09-24 11:39 | XMS_ITS | Clinical Summary ---
Author Organization [employer] Address [address] [place] [address] 7 [place] [address] Care Team Providers Care It Integration Architect Name Role Phone Suzy Mabry MD Primary Care Provider [phone] Allergies No known active allergies Medications terbinafine (LamISIL AT) 1 % cream Apply topically 2 times daily. 42 g 4 Active cholecalciferol (Vitamin D-3) 25 MCG (1000 UT) tablet Take 1 tablet (25 mcg) by mouth Once per day. 90 tablet 3 4 Active cetirizine (ZyrTEC) 10 MG tabletIndication s:Allergic rhinitis, unspecified seasonality, unspecified trigger Take 1 tablet (10 mg) by mouth Once per day. 90 tablet 3 5 Active fluticasone (Flonase) 50 MCG/ACT nasal sprayIndications :Allergic rhinitis, unspecified seasonality, unspecified trigger Administer 2 sprays into each nostril Once per day. Shake gently. Before first use, prime pump. After use, clean tip and replace cap. 48 mL 3 5 01/12/20 26 Active ibuprofen 600 MG tablet Take 1 tablet (600 mg) by mouth every 6 (six) hours if needed for mild pain. 40 tablet 1 5 06/08/20 26 Active b complex vitamins capsule Take 1 capsule by mouth Once per day. Active ferrous sulfate (Fe Tabs) 325 (65 Fe) MG EC tablet Take 1 tablet (325 mg) by mouth every other day. Do not crush, chew, or split. 45 tablet 3 11/1708/21/20 26 Active Active Problems Problem Noted Date Diagnosed Date Depression 08/22/2025 Assessment & Plan (08/22/2025 9:16 AM EST): - behavioral health service provider: Bryan Bailey - PHQ9 score 18 on 08/21/2025 - Attending therapy regularly - Not taking any medication currently - continue current treatment plan per behavioral health service provider Hypokalemia 08/21/2025 Assessment & Plan (08/21/2025 12:06 PM EST): - seen in [facility] ED for headache and diarrhea, found to have low K. Replacement given IV. - likely due to GI loss - recheck electrolyte panel today GI bleeding 08/21/2025 Assessment & Plan (08/21/2025 11:59 AM EST): - evaluated for hemorrhoids by colorectal surgeon, and was told that she does not have hemorrhoids - because of her anemia and hematochezia, will refer her to GI for further evaluation and management Headache 07/21/2024 Assessment & Plan (08/22/2025 9:17 AM EST): - multifactorial - sinus headache and tension headache, unlikely migraine - will optimize treatment for sinusitis - continue ibuprofen or acetaminophen prn Assessment & Plan (07/21/2024 12:43 PM EDT): - multifactorial - sinus headache and tension headache, unlikely migraine - will optimize treatment for sinusitis - continue ibuprofen or acetaminophen prn Anemia 07/21/2024 Assessment & Plan (08/21/2025 12:03 PM EST): - iron deficiency - multifactorial: AUB; GIB - patient is planning to get hormonal IUD to regulate blood flow - continue iron supplementation. Patient states she has a difficulty taking iron supplement orally, and requests parenteral iron. Will refer to hematology - will refer to GI for source of GI bleeding Assessment & Plan (07/21/2024 12:46 PM EDT): - patient has history of iron deficiency anemia and AUB - patient has fibroid and following with hiv cts specialist - will check anemia and will also [...] 12/19/2016 Allergic rhinitis 12/19/2016 Assessment & Plan (08/21/2025 12:04 PM EST): - previously on cetrizine and fluticasone nasal - patient had previous imaging CT scan showing a cyst in the nasal cavity - seen by ENT in Jul 2024 and was evaluated with nasal endoscopy - she was prescribed fexofenadine by ENT - recommended to resume antihistamine therapy and follow up with ENT Assessment & Plan (07/21/2024 12:45 PM EDT): - will restart cetrizine and flonase Vitamin D deficiency 06/18/2015 Lipoma of scalp 01/16/2014 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/2013 Assessment & Plan (08/21/2025 12:03 PM EST): - patient had previous imaging CT scan showing a cyst in the nasal cavity - seen by ENT in Jul 2024 and was evaluated with nasal endoscopy - recommended to follow up with ENT Assessment & Plan (07/21/2024 12:45 PM EDT): - patient had previous imaging CT scan showing a cyst in the nasal cavity Chronic sinusitis 07/28/2013 Assessment & Plan (07/21/2024 12:44 PM EDT): - will refer her to ENT Encounters Date Type Department Care Team Description 09/24/2025 Orders Only GENERIC EXTERNAL DATA DEPARTMENT Provider, Generic External Data 08/21/2025 9:00 AM EST Office [facility] [address] [place] [phone] Suzy Mabry MD Iron deficiency anemia due to chronic blood loss (Primary Dx); Leukocytosis, unspecified type; Hypokalemia; Screening for diabetes mellitus; Gastrointestinal hemorrhage, unspecified gastrointestinal hemorrhage type; Cyst of nasal sinus; Chronic sinusitis, unspecified location; Allergic rhinitis, unspecified seasonality, unspecified trigger; Vitamin D deficiency; Current severe episode of major depressive disorder without psychotic features, unspecified whether recurrent (CMS/HCC) (HCC); Nonintractable headache, unspecified chronicity pattern, unspecified headache type 08/21/2025 Travel 08/20/2025 Travel 08/18/2025 Telephone [facility] [address] [place] [phone] Suzy Mabry MD chartprep 08/17/2025 Telephone [facility] [address] [place] [address] Suzy Mabry MD Nurse Triage 08/16/2025 Orders Only [facility] External Provider, [facility] 07/05/2025 Orders Only GENERIC EXTERNAL DATA DEPARTMENT Provider, Generic External Data from Last 3 Months Immunizations Immunization Administration [...] Answer Date Recorded Patient Health Questionnaire-9 Score 18 08/21/2025 Patient Health Questionnaire-9 Score 18 08/21/2025 Last PHQ-9: Questionnaire Data Not on file 1 10/21/2024 Housing Stability Answer Date Recorded What is your housing situation today? I have francie ordoñez 08/21/[address] you li ve. Do you have problems with any of the following? None of the above 08/21/2025 Food Insecurity Answer Date Recorded Within the past 12 months, y ou worried that your food would run out before you got money to buy more: Never True 08/21/2025 Within the past 12 months,th e food you bought just didn't last and you didn't have enough money to get more: Never True Transportation Answer Date Recorded In the past 12 months, has l ack of transportation kept you from medical appts, meetings, work or from getting things needed for daily living? No 08/21/2025 Utilities Answer Date Recorded In the past 12 months, has t he electric, gas, oil or water company threatened to shut off services in your home? No 08/21/2025 Depression Answer Date Recorded Patient Health Questionnaire-2 Score 4 08/21/2025 Internet Access Answer Date Recorded Internet Access Q1 Yes 08/21/2025 Internet Access Q2 Not on file 08/21/2025 Comments No Sex and Gender Information Value Date Recorded Sex Assigned at Female 08/04/2022 10:20 AM EDT Legal Sex Female 10:20 AM EDT Gender Identity Female 02/20/2023 11:14 AM EDT Sexual Orientation Don't know 02/20/2023 11 :14 AM EDT Last Filed Vital Signs Vital Sign Reading Time Taken Comments Blood Pressure 110/76 08/21/2025 9:09 AM EST Pulse 88 08/21/2025 9:09 AM EST Temperature 36 C (96.8 F) 08/21/2025 9:09 AM EST Respiratory Rate 16 08/21/2025 9:09 AM EST Oxygen Saturation 100% 06/08/2025 10:34 AM EDT Inhaled Oxygen Concentration - - Weight 67 kg (147 lb 9.6 oz) 08/21/2025 9:09 AM EST Height 165.1 cm (5' 5 ) 08/21/2025 9:09 AM EST Body Mass Index 24.56 08/21/2025 9:09 AM EST Plan of Treatment Health Maintenance Due Date Last Done Comments Family Planning (PISQ) 02/07/2000 HPV Vaccines (1 - 3-dose series) 02/07/2000 Pneumococcal Vaccine: Pediatrics (0 to 5 Years) and At-Risk Patients (6 to 49) Years (1 of 2 - PCV) 02/07/2004 DTaP/Tdap/Td Vaccines (8 - Td or Tdap) 07/28/2023 07/28/2013, 05/04/1999, 12/17/1998, Additional history exists COVID-19 Vaccine (1 - season) 2025 Influenza Vaccine (#1) 2025 07/28/2013 Depression Monitoring 02/18/2026 08/21/2025, 025 Alcohol/Substance Use Screening 08/21/2026 08/21/2025 Disability Screening 08/21/2026 08/21/2025 SDOH Screening 08/21/2026 08/21/2025 Tobacco Screening 08/21/2026 08/21/2025 Cervical Cancer Screening 02/28/2027 HPV/Cotest 02/28/2027 02/28/2022, [...] Procedure Name Priority Date/Time Associated Diagnosis Comments COMPREHENSIVE METABOLIC PANEL Routine 09/24/2025 11:06 AM EST CBC WITH AUTO DIFFERENTIAL Routine 09/24/2025 11:06 AM EST HEMOGLOBIN A1C Routine 08/21/2025 9:52 AM EST Screening for diabetes mellitus MAGNESIUM Routine 08/21/2025 9:52 AM EST Hypokalemia VITAMIN B12/FOLATE, SERUM PANEL Routine 08/21/2025 9:52 AM EST Iron deficiency anemia due to chronic blood loss RETICULOCYTE COUNT Routine 08/21/2025 9: 52 AM EST Iron deficiency anemia due to chronic blood loss IRON AND TOTAL IRON BINDING CAPACITY Routine 08/21/2025 9:52 AM EST Iron deficiency anemia due to chronic blood loss FERRITIN Routine 08/21/2025 9:52 AM EST Iron deficiency anemia due to chronic blood loss TSH W/REFLEX TO FT4 Routine 08/21/2025 9 :52 AM EST Iron deficiency anemia due to chronic blood loss COMPREHENSIVE METABOLIC PANEL Routine 08/21/2025 9:52 AM EST Hypokalemia CBC WITH AUTO DIFFERENTIAL Routine 08/21/2025 9:52 AM EST Iron deficiency anemia due to chronic blood loss Leukocytosis, unspecified type CULTURE, URINE, ROUTINE Routine 08/21/2025 9:52 AM EST UTI symptoms CT ABDOMEN PELVIS W CONTRAST Routine 08/16/2025 10:53 AM EST CHLAMYDIA/N. GONORRHOEAE RNA, TMA, UROGENITAL Routine 07/05/2025 3:11 PM EDT BACTERIAL VAGINOSIS PANEL Routine 07/05/2025 3:11 PM EDT BI MAMMOGRAM SCREENING TOMOSYNTHESIS BILATERAL Routine 04/13/2025 8:05 AM EDT HEPATITIS C ANTIBODY Routine 10/08/2023 3:40 PM EST HIV 1/2 ANTIGEN/ANTIBODY, FOURTH GENERATION W/RFL Routine 10/08/2023 3:40 PM EST HM PAP/HPV Routine 02/28/2022 from Last 3 Months or Most Recently Relevant to Health Maintenance Results * (ABNORMAL) CBC auto differential (09/24/2025 11:06 AM EST) Only the most recent of2 resultswithin the time period is included. White Blood Count 9.5 4.8 - 10.8 X10*3/uL [facility] Red Blood Count 4.26 4.20 - 5.50 X10*6/uL [facility] Hemoglobin 10.3(L) 12.0 - 16.0 g/dl [facility] Hematocrit 31.4(L) 37.0 - 47.0 % [facility] Mean Corpuscular Volume 73.7(L) 80.0 - 98.0 fL [facility] Mean Corpuscular Hemoglobin 24.2(L) 27.0 - 33.0 pg [facility] Mean Corpuscular HGB Conc 32.8 31.0 - 35.0 g/dl [facility] Red Cell Distribution Width 14.6 11.0 - 16.0 % [facility] Platelet Count 321 160 - 400 X10*3/uL [facility] Mean Platelet Volume 9.8 9.4 - 12.3 fL [facility] Neutrophils Percent Auto 65.2 45 - 73 % [facility] Imm Gran Pct Auto 0.3 0.0 - 0.4 % [facility] Lymphocytes Percent Auto 24.0 20 - 40 % [facility] Monocytes Percent Auto 6.7 2 - 11 % [facility] Eosinophils Percent Auto 2.9 0 - 4 % [facility] Basophils Percent Auto 0.9 0 - 2 % [facility] NRBC Pct Auto 0.0 0.0 - 0.2 /100WBC [facility] Neutrophils Absolute Auto 6.2 2.0 - 8.3 x10*3/uL [facility] Imm Gran Abs Auto 0.03 0.00 - 0.03 X10*3/uL [facility] Lymphocytes Absolute Auto 2.3 1.2 - 4.9 X10*3/uL [facility] Monocytes Absolute Auto 0.6 0.1 - 1.2 X10*3/uL [facility] Eosinophils Absolute Auto 0.3 0.0 - 0.4 X10*3/uL [facility] Basophils Absolute Auto 0.1 0.0 - 0.2 X10*3/uL [facility] NRBC Abs Auto 0.000 0.0 - 0.012 X10*3/uL [facility] 09/24/2025 11:0 6 AM EST 09/24/2025 11:08 AM EST us Generic External Data Provider LAB BLOOD ORDERAB LES Final Result [facility] [address] [place] [phone] * (ABNORMAL) Comprehensive Metabolic Panel (09/24/2025 11:06 AM EST) Only the most recent of2 resultswithin the time period is included. Sodium 141 135 - 145 mmol/L [facility] Potassium 3.6 3.3 - 5.1 mmol/L [facility] Chloride 110(H) 96 - 108 mmol/L [facility] Carbon Dioxide 25 22 - 29 mmol/L [facility] Anion Gap 10(L) 12 - 20 [facility] Urea Nitrogen (BUN) 8(L) 9 - 16 mg/dL [facility] Creatinine, Serum 0.60 0.5 - 1.4 mg/dL [facility] Creatinine Clr Calc Pharmacy 112.1 [facility] Comment:Provided height and weight: 165.1 cm,68.039 kg.eGFR (calculated from the MDRD study equation) and eCrCl(calculated from the Cockcroft-Gault equation) are based ondifferent parameters and may not yield comparable results.If eCrCl result is absurd, please check patient'sheight/weight. Estimated Glomerular Filt Rate >60 [facility] Comment:Chronic Kidney Disea se: Estimated GFR < 60 mL/min/1.64u4Ybplqt Kidney Disease: Estimated GFR < 15 mL/min/1.73m2 Glucose 99 60 - 115 mg/dL [facility] Calcium 9.1 8.4 - 10.2 mg/dL [facility] Bilirubin, Total 0.7 0.0 - 1.0 mg/dL [facility] Aspartate Amino Transferase 18 5 - 31 U/L [facility] Alanine Aminotransferase 6 0 - 31 U/L [facility] Total Protein 7.1 6.5 - 8.0 g/dL [facility] Albumin Level 4.1 3.5 - 5.0 g/dL [facility] Alkaline Phosphatase 60 39 - 117 U/L [facility] 09/24/2025 11:0 6 AM EST 09/24/2025 11:08 AM EST us Generic External Data Provider LAB BLOOD ORDERAB LES Final Result [facility] [address] [place] [phone] * Vitamin B12 (Cobalamin) and Folate Panel, Serum (08/21/2025 9:52 AM EST) Vitamin B12 597 200 - 900 pg/mL [facility] Comment:NORMAL 200-900 PG/ML INDETERMINATE 160-199 PG/ML DEFICIENT < 160 PG/ML Folate 10.7 > or = 4.0 ng/mL [facility] Comment:Reference Values:> o r = 4.0 ng/mL< 4.0 ng/mL suggests folate deficiency Methotrexate, aminopterin and folinic acid(leucovorin) are chemotherapeutic agents whose molecularstructures are similar to folate; therefore, the Architectfolate assay cannot be used for patients using these drugs. Blood 08/21/2025 9:52 AM EST 08/21/2025 12:06 PM EST us Suzy Mabry MD LAB BLOOD ORDERABLES Final Resul t Performing Organization Address City/[facility]/ZIP Co de Phone Number [facility] [address] [place] [phone] * TSH with Reflex to Free T4 (08/21/2025 9:52 AM EST) TSH reflex Free T4 0.72 0.32 - 4.0 uIU/mL [facility] Blood 08/21/2025 9:52 AM EST 08/21/2025 12:06 PM EST us Suzy Mabry MD LAB BLOOD ORDERABLES Final Resul t Performing Organization Address [facility] Co de Phone Number [facility] [address] [place] [phone] * (ABNORMAL) Iron And Total Iron Binding Capacity (08/21/2025 9:52 AM EST) Iron 42 30 - 160 mcg/dL [facility] Total Iron Binding Capacity 310 228 - 428 mcg/dL [facility] Percent Iron Saturation 14(L) 15 - 50 % [facility] Unsaturated Iron Binding 268 ug/dL [facility] Blood Venous blood specimen / Unknown 08/21/2025 9:52 AM EST 08/21/2025 12:06 PM EST us Suzy Mabry MD LAB BLOOD ORDERABLES Final Resul t Performing Organization Address [facility] Co de Phone Number [facility] [address] [place] [phone] * (ABNORMAL) Reticulocyte Count (08/21/2025 9:52 AM EST) Reticulocytes Absolute 0.079 0.026 - 0.095 X10*6/uL [facility] Immature Retic Fraction 30.8(H) 3.0 - 15.9 % [facility] Retic HGB Equivalent 26.0(L) 30.0 - 35.0 pg [facility] Reticulocyte Percent 1.8 0.5 - 1.8 % [facility] Blood Venous blood specimen / Unknown 08/21/2025 9:52 AM EST 08/21/2025 11:41 AM EST Suzy Mabry MD LAB BLOOD ORDERABLES Final Resul t Performing Organization Address City/[facility]/ZIP Co de Phone Number [facility] [address] [place] [phone] * Culture, Urine, Routine (08/21/2025 9:52 AM EST) Urine Urine specimen obtained by clean catch procedure / Unknown 08/21/2025 9:52 AM EST 08/21/2025 11:33 AM EST Comment:UACC Narrative [facility] - 08/22/2025 11:16 AM EST Urine Culture Report Result Urine Culture 10,000 to 50,000 cfu/ml Urine Culture Mixed bacterial saw characteristic of Urine Culture urogenital contamination. Specimen Source: Urine clean catch Miesha Hutchinson NP LAB MICROBIOLOGY - GENERAL ORDMegan GARG Final Result [facility] [address] [place] [phone] * Magnesium (08/21/2025 9:52 AM EST) Magnesium 2.2 1.6 - 2.6 mg/dL [facility] Blood Venous blood specimen / Unknown 08/21/2025 9:52 AM EST 08/21/2025 12:06 PM EST us Suzy Mabry MD LAB BLOOD ORDERABLES Final Resul t Performing Organization Address [facility] Co de Phone Number [facility] [address] [place] [phone] * Hemoglobin A1c (08/21/2025 9:52 AM EST) Hemoglobin A1c 4.8 <6.0 % [facility] Comment:Hemoglobin A1C Refer ence Range Adults: 4.8 - 6.0 % Non diabetic: < 6.0 % Goal: < 7.0 %Additional Action Suggested: > 8.0 %Note: Hemoglobin A1c results are invalid for patients with abnormal amounts of HbF. Blood transfusions may impact the HbA1c concentration in the patient sample. Estimated Average Glucose 91 mg/dL [facility] Comment:eAG = Estimated ave rage glucose which is %A1C expressed asaverage glucose, using the formula of the X2Y-OvsxxigBbqhoob Glucose study (ADAG), Diabetes Care, Vol.31,#8,May. 2007 Blood Venous blood specimen / Unknown 08/21/2025 9:52 AM EST 08/21/2025 12:06 PM EST us Suzy Mabry MD LAB BLOOD ORDERABLES Final Resul t Performing Organization Address [facility] Co de Phone Number [facility] [address] [place] [phone] * Ferritin (08/21/2025 9:52 AM EST) Ferritin 91 10 - 250 ng/mL [facility] Blood Venous blood specimen / Unknown 08/21/2025 9:52 AM EST 08/21/2025 12:06 PM EST us Suzy Mabry MD LAB BLOOD ORDERABLES Final Resul t Performing Organization Address [facility] Co de Phone Number [facility] [address] [place] [phone] * CT Abdomen Pelvis w/ Contrast (08/16/2025 10:53 AM EST) Anatomical Region Laterality Modality Body, Pelvis, Abdomen Computed T omography 08/16/2025 10:5 3 AM EST Narrative 08/16/2025 11:27 AM EST [place] [address] CT Scan Report Signed Patient: Irish Pope MR#: [id number] : 1985 Acct:[id number] Age/Sex: 40 / F ADM Date: 08/16/25 Loc: HO.ED Attending Dr: Ordering Physician: China Camp Date of Service: 08/16/25 Procedure(s): CT abdomen pelvis w IV con Accession Number(s): [id number] cc: China Camp; Suzy Mabry MD Report Number: [id number]: Total DLP = 0.00 mGy-cm Reason for Exam: Leukocytosis. Generalized weakness. Diarrhea. EXAMINATION: CT ABDOMEN PELVIS WITH IV CONTRAST HISTORY: Leukocytosis. Generalized weakness. Diarrhea. COMPARISON: Previous CT of the abdomen and pelvis April 2021 and pelvic ultrasound September 2024 TECHNIQUE: CT scan of the abdomen and pelvis was performed following administration of 85 mL Omnipaque 350 using standard departmental protocol. Coronal and sagittal reformatted images were generated and reviewed. This CT exam was performed with one or more of the following dose reduction techniques: automated exposure control, adjustment of the mA and/or kV according to patient size, use of iterative reconstruction technique. DLP: 411 mGy-cm FINDINGS: LOWER CHEST: The visualized lung bases are clear. There is no pleural effusion. CARDIOVASCULATURE: The heart is normal in size. There is no pericardial effusion. LIVER: The liver is normal in size and contour. No liver mass is identified. The hepatic and portal veins are patent. GALLBLADDER / BILE DUCTS: The gallbladder is attracted.. There is no intra or extrahepatic biliary ductal dilatation. SPLEEN: The spleen is normal in size. No focal splenic lesion is identified. PANCREAS: The pancreas is unremarkable in appearance. ADRENAL GLANDS: Within normal limits. KIDNEYS/RETROPERITONEUM: No renal calculi are identified. There is no hydronephrosis. No renal masses are identified. LYMPH NODES: No abdominal or pelvic lymphadenopathy. VASCULATURE: The abdominal aorta is normal in caliber. MESENTERY/PERITONEUM: No free fluid. No masses. There is no free intraperitoneal gas. STOMACH: Normal SMALL BOWEL: The small bowel is normal in caliber. COLON: The colon is unremarkable. APPENDIX: Normal. URINARY BLADDER/PELVIC ORGANS: The urinary bladder is unremarkable. Uterus and adnexa are normal. BONES / SOFT TISSUES: Small umbilical hernia containing fat. Bony structures are unremarkable. CT/CT abdomen pelvis w IV con IMPRESSION: No acute findings. Small umbilical hernia containing fat. Electronically signed by: Margaret Muniz MD 08/16/2025 11:24 AM EST Dictated By: Margaret Muniz MD Signed By: <Electronically signed by Margaret Muniz MD in OV> 08/16/25 1124 DD/ 1053 TD/TT: 08/16/25 1058 Flooring Grader: JOVANNA Procedure Note Donotuseinterpreter, Image - 08/16/[address] [place] [address] [address] Scan Report Signed Patient: Irish Pope GMR#: [id number] : 1985Acct:[id number] Age/Sex: 40 / FADM Date: 08/16/25 Loc: HO.ED Attending Dr: Ordering Physician: China Camp Date of Service: 08/16/25 Procedure(s): CT abdomen pelvis w IV con Accession Number(s): [id number] cc: China Camp; Suzy Mabry MD Report Number: [id number]: Total DLP = 0.00 mGy-cm Reason for Exam: Leukocytosis. Generalized weakness. Diarrhea. EXAMINATION: CT ABDOMEN PELVIS WITH IV CONTRAST HISTORY: Leukocytosis. Generalized weakness. Diarrhea. COMPARISON: Previous CT of the abdomen and pelvis April 2021 and pelvic ultrasound September 2024 TECHNIQUE: CT scan of the abdomen and pelvis was performed following administration of 85 mL Omnipaque 350 using standard departmental protocol. Coronal and sagittal reformatted images were generated and reviewed. This CT exam was performed with one or more of the following dose reduction techniques: automated exposure control, adjustment of the mA and/or kV according to patient size, use of iterative reconstruction technique. DLP: 411 mGy-cm FINDINGS: LOWER CHEST: The visualized lung bases are clear. There is no pleural effusion. CARDIOVASCULATURE: The heart is normal in size. There is no pericardial effusion. LIVER: The liver is normal in size and contour. No liver mass is identified. The hepatic and portal veins are patent. GALLBLADDER / BILE DUCTS: The gallbladder is attracted.. There is no intra or extrahepatic biliary ductal dilatation. SPLEEN: The spleen is normal in size. No focal splenic lesion is identified. PANCREAS: The pancreas is unremarkable in appearance. ADRENAL GLANDS: Within normal limits. KIDNEYS/RETROPERITONEUM: No renal calculi are identified. There is no hydronephrosis. No renal masses are identified. LYMPH NODES: No abdominal or pelvic lymphadenopathy. VASCULATURE: The abdominal aorta is normal in caliber. MESENTERY/PERITONEUM: No free fluid. No masses. There is no free intraperitoneal gas. STOMACH: Normal SMALL BOWEL: The small bowel is normal in caliber. COLON: The colon is unremarkable. APPENDIX: Normal. URINARY BLADDER/PELVIC ORGANS: The urinary bladder is unremarkable. Uterus and adnexa are normal. BONES / SOFT TISSUES: Small umbilical hernia containing fat. Bony structures are unremarkable. CT/CT abdomen pelvis w IV con IMPRESSION: No acute findings. Small umbilical hernia containing fat. Electronically signed by: Margaret Muniz MD 08/16/2025 11:24 AM [facility] Dictated By: Margaret Muniz MD Signed By: <Electronically signed by Margaret Muniz MD in OV> 08/16/25 1124 DD/ 1053 TD/TT: 08/16/25 1058 Flooring Grader: JOVANNA [facility] External Provider IMG CT PROCEDURES Final Result * (ABNORMAL) Bacterial Vaginosis (07/05/2025 3:11 PM EDT) TRICHOMONAS VAGINALIS DETECTION BY PCR NOT DETECTED Not Detect [facility] BACTERIAL VAGINOSIS DETECTION BY PCR NEGATIVE Negative [facility] Comment:The BV organism targ ets of [...] GROUP DETECTION BY PCR DETECTED(A) Not Detect [facility] Kimberly glab krusei PCR NOT DETECTED Not Detect [facility] 07/05/2025 3:11 PM EDT 07/06/2025 3:21 PM EDT us Generic External Data Provider LAB MICROBIOLOGY - GENERAL ORDERABLES Final Result [facility] [address] [place] [phone] * Chlamydia/N. Gonorrhoeae RNA, TMA, Urogenitial (07/05/2025 3:11 PM EDT) CT PCR NOT DETECTED Not Detect. [facility] Comment:A not detected test result does [...] psychologicalconsequences. NG PCR NOT DETECTED Not Detect. [facility] Comment:A not detected test result does [...] lead to adverse medical, social or psychologicalconsequences. 07/05/2025 3:11 PM EDT 07/06/2025 3:21 PM EDT Generic External Data Provider LAB MICROBIOLOGY - GENERAL ORDERABLES Final Result Performing Organization Address City/State/[facility] Co de Phone Number [facility] [address] [place] [phone] * BI Mammogram Screening Tomosynthesis Bilateral (04/13/2025 8:05 AM EDT) Anatomical Region Laterality Modality Breast Bilateral Mammography 04/13/2025 8:05 AM EDT Narrative 04/25/2025 8:34 PM EDT [facility] [address] [place] [address] Mammography Report Signed Patient: Irish Pope MR#: [id number] : 1985 Acct:[id number] Age/Sex: 40 / F ADM Date: 04/13/25 Loc: ANGY Attending Dr: Chantelle Bernal CNM Ordering Physician: Chantelle Bernal CNM Results: 1Nega tive Date of Service: 04/13/25 Follow Up: 1 Year From Orig inal Mammogram Procedure(s): MM tomosynthesis screening BI Accession Number(s): [id number] cc: Chantelle Bernal CNM; Suzy Mabry MD [...] in OV> 04/25/252031 DD/ 4 TD/TT: 04/13/25824 Flooring Grader: Procedure Note Donotuseinterpreter, Image - 04/25/2025 [facility] [address] [place] [address] Mammography Report Signed Patient: Irish Pope GMR#: [id number] : 1985Acct:[id number] Age/Sex: 40 / FADM Date: 04/13/25 Loc: HO.MAMMO Attending Dr: Chantelle Bernal CNM Ordering Physician: Chantelle BernalMResults: 1Nega tive Date of Service: 04/13/25Follow Up: 1 Year From Orig inal Mammogram Procedure(s): MM tomosynthesis screening BI Accession Number(s): [id number] cc: Chantelle Bernal CNM; Suzy Mabry MD [...] in OV> 04/25/252031 DD/ 4 TD/TT: 04/13/25824 Flooring Grader: [facility] External Provider IMG BI PROCEDURES Final Result * Hepatitis C Ab (10/08/2023 3:40 PM EST) Hepatitis C Antibody Nonreactive Nonreactive [facility] Comment:Antibodies to HCV no t detected; does not exclude early acuteHCV infection. 10/08/2023 3:40 PM EST 10/08/2023 3:45 PM EST Generic External Data Provider LAB BLOOD ORDERAB LES Final Result [facility] [address] [place] [phone] * HIV-1/2 Antigen and Antibodies, Fourth Generation, with Reflexes (10/08/2023 3:40 PM EST) HIV AB/AG Nonreactive Nonreactive [facility] Comment:HIV-1 p24 Ag and/or HIV-1/HIV-2 Ab not detected.A test result that is nonreactive does not exclude thepossibility of exposure to or infection with HIV-1 and/orHIV-2. Nonreactive results in this assay for individualswith prior exposure to HIV-1 and/or HIV-2 may be due toantigen and antibody levels that are below the limit ofdetection of this assay.The [employer] HIV Ag/Ab Combo assay result andsupplemental assay results should be interpreted inconjunction with the patient's clinical presentation,history and other laboratory results. If the results areinconsistent with clinical evidence, additional testing issuggested to confirm the result. 10/08/2023 3:40 PM EST 10/08/2023 3:45 PM EST us Generic External Data Provider LAB BLOOD ORDERAB LES Final Result Performing Organization Address [facility]/ZIP Co de Phone Number [facility] [address] [place] [phone] * Hm Pap Smear (02/28/2022) Pap Negative for intraephithelial lesion or malignancy Negative for intraephithelial lesion or malignancy, Other HPV Undetected Historical Provider HEALTH MAINTENANCE Final Result from Last 3 Months or Most Recently Relevant to Health Maintenance [place] [address] [address] [address] [place] [id number] Care Teams It Integration Architect Relationship Specialty Start Date End Date Suzy Mabry MD [address] [place] [phone] PCP - General Family Medicine 10/05/18
--- OUTSIDE RECORDS SUMMARY | 2025-09-24 11:39 | XMS_ITS | Encounter Summary ---
Author Organization [employer] Address [address] [place] [address] 7 [place] [address] Care Team Providers Care Area Supervisor Name Role Phone Suzy Mabry MD Primary Care Provider [phone] Encounter Details Date Type Department Care Team ([facility] st Contact Info) Description 04/16/2023 Orders Only [facility] MED[facility] [address] [place], [place] [phone] Suzy Mabry MD [address] [place], [place] [phone] Social History Tobacco Use Types Packs/Day Years [...] documented as of this encounter Care Teams Area Supervisor Relationship Specialty Start Date End Date Suzy Mabry MD [address] [place] [address] PCP - General Family Medicine 10/05/18 documented as of this encounter
--- OUTSIDE RECORDS SUMMARY | 2025-09-24 11:39 | XMS_ITS | Clinical Summary ---
Author Organization [facility] Address [address] [place] [phone] Phone Care Team Providers Care Integration Solution Architect Name Role Phone Unavailable Primary Care Provider [...]
--- OUTSIDE RECORDS SUMMARY | 2025-09-24 11:39 | XMS_ITS | Encounter Summary ---
Author Organization [employer] Address [address] [facility] 7[address] [place] [address] Care Team Providers Care Stripping Shovel Oiler Name Role Phone Suzy Mabry MD Primary Care Provider [phone] Encounter Details Date Type Department Care Team ([facility] st Contact Info) Description 07/26/2024 Orders Only [facility]INE [address] [place], [place] [phone] Suzy Mabry MD [address] [place], [place] [phone] Visual impairment (Primary Dx) Social History Tobacco [...] documented as of this encounter Care Teams Stripping Shovel Oiler Relationship Specialty Start Date End Date Suzy Mabry MD [address] [place] [phone] PCP - General Family Medicine 10/05/18 documented as of this encounter
--- OUTSIDE RECORDS SUMMARY | 2025-09-24 11:39 | XMS_ITS | Encounter Summary ---
Author Organization [facility] Address [address] [place] [phone] Phone Care Team Providers Care Commissioner Of Internal Revenue Name Role Phone Rigoberto Carias MD Primary Care Provider [phone] Encounter Details Date Type Department Care Team (Late st Contact Info) Description 11/05/2011 Documentation [facility] Family Medicine [address] [place] [address] Family Medicine, Physician [address] [place] [address] Social History Tobacco Use Types [...] on filedocumented in this encounter Care Teams Commissioner Of Internal Revenue Relationship Specialty Start Date End Date Rigoberto Carias MD [address] [facility] [place] [address] PCP - General 05/15/17 03/11/23 documented as of this encounter
--- OUTSIDE RECORDS SUMMARY | 2025-09-24 11:39 | XMS_ITS | Encounter Summary ---
Author Organization [employer] Address [address] [place] [address] [address] [place] [address] Care Team Providers Care Tariff Expert Name Role Phone Suzy Mabry MD Primary Care Provider [phone] Encounter Details Date Type Department Care Team (Late st Contact Info) Description 05/01/2023 Abstract [facility]INE [address] [place], [place] [phone] Suzy Mabry MD [address] [place], [place] [phone] Social History Tobacco Use Types Packs/Day Years [...] documented as of this encounter Care Teams Tariff Expert Relationship Specialty Start Date End Date Suzy Mabry MD [address] [place] [address] PCP - General Family Medicine 10/05/18 documented as of this encounter
--- OUTSIDE RECORDS SUMMARY | 2025-09-24 11:39 | XMS_ITS | Encounter Summary ---
Author Organization [employer] Address [address] [place] [address] 7[place] [address] Care Team Providers Care Nuclear Licensing Engineer Name Role Phone Suzy Mabry MD Primary Care Provider [phone] Reason for Referral * Consultation (Urgent) - Closed Specialty Diagnoses / Procedures Referred By Corina livingston Referred To Contact Obstetrics and Gynecology Diagnoses Encounter for well woman exam with routine gynecological exam Pelvic pain Suzy Mabry MD [address] [place] [phone] Phone: tel: fax: [facility] Referral ID Status Reason Start Date Expiration Date V isits Requested Visits Authorized [id number] Closed Specialty Services Required 06/27/2024 06/27/2025 9 9 Encounter Details Date Type Department Care Team (Late st Contact Info) Description 06/28/2024 Orders Only [facility] MEDICINE [address] [place], [place] [phone] Suzy Mabry MD [address] [place], [place] [phone] Encounter for well woman exam with routine [...] Reticulocytes Absolute 0.069 0.026 - 0.095 X10*6/uL [facility] Immature Retic Fraction 16.3(H) 3.0 - 15.9 % [facility] Retic HGB Equivalent 29.1(L) 30.0 - 35.0 pg [facility] Reticulocyte Percent 1.5 0.5 - 1.8 % [facility] Blood Venous blood specimen / Unknown 07/21/2024 2:50 PM EDT 07/21/2024 4:18 PM EDT Suzy Mabry MD LAB BLOOD ORDERABLES Final Resul t Performing Organization Address [facility]/ZIP Co de Phone Number [facility] [address] [place] [phone] * Iron And Total Iron Binding Capacity (07/21/2024 2:50 PM EDT) Iron 65 30 - 160 mcg/dL [facility] Total Iron Binding Capacity 292 228 - 428 mcg/dL [facility] Percent Iron Saturation 22 15 - 50 % [facility] Unsaturated Iron Binding 227 ug/dL [facility] Blood Venous blood specimen / Unknown 07/21/2024 2:50 PM EDT 07/21/2024 4:18 PM EDT Suzy Mabry MD LAB BLOOD ORDERABLES Final Resul t Performing Organization Address [facility]/ZIP Co de Phone Number [facility] [address] [place] [phone] * Ferritin (07/21/2024 2:50 PM EDT) Ferritin 26 10 - 122 ng/mL [facility] Blood Venous blood specimen / Unknown 07/21/2024 2:50 PM EDT 07/21/2024 4:18 PM EDT us Suzy Mabry MD LAB BLOOD ORDERABLES Final Resul t [facility] [address] [place] [phone] * (ABNORMAL) CBC auto differential (07/21/2024 2:50 PM EDT) White Blood Count 9.4 4.8 - 10.8 X10*3/uL [facility] Red Blood Count 4.68 4.20 - 5.50 X10*6/uL [facility] Hemoglobin 11.8(L) 12.0 - 16.0 g/dl [facility] Hematocrit 35.7(L) 37.0 - 47.0 % [facility] Mean Corpuscular Volume 76.3(L) 80.0 - 98.0 fL [facility] Mean Corpuscular Hemoglobin 25.2(L) 27.0 - 33.0 pg [facility] Mean Corpuscular HGB Conc 33.1 31.0 - 35.0 g/dl [facility] Red Cell Distribution Width 13.1 11.0 - 16.0 % [facility] Platelet Count 244 160 - 400 X10*3/uL [facility] Mean Platelet Volume 11.4 9.4 - 12.3 fL [facility] Neutrophils Percent Auto 66.0 45 - 73 % [facility] Imm Gran Pct Auto 0.3 0.0 - 0.4 % [facility] Lymphocytes Percent Auto 26.3 20 - 40 % [facility] Monocytes Percent Auto 5.3 2 - 11 % [facility] Eosinophils Percent Auto 1.4 0 - 4 % [facility] Basophils Percent Auto 0.7 0 - 2 % [facility] NRBC Pct Auto 0.0 0.0 - 0.2 /100WBC [facility] Neutrophils Absolute Auto 6.2 2.0 - 8.3 x10*3/uL [facility] Imm Gran Abs Auto 0.03 0.00 - 0.03 X10*3/uL [facility] Lymphocytes Absolute Auto 2.5 1.2 - 4.9 X10*3/uL [facility] Monocytes Absolute Auto 0.5 0.1 - 1.2 X10*3/uL [facility] Eosinophils Absolute Auto 0.1 0.0 - 0.4 X10*3/uL [facility] Basophils Absolute Auto 0.1 0.0 - 0.2 X10*3/uL [facility] NRBC Abs Auto 0.000 0.0 - 0.012 X10*3/uL [facility] Blood Venous blood specimen / Unknown 07/21/2024 2:50 PM EDT 07/21/2024 4:18 PM EDT us Suzy Mabry MD LAB BLOOD ORDERABLES Final Resul t [facility] [address] [place] [phone] documented in this encounter Visit Diagnoses [...] documented as of this encounter Care Teams Nuclear Licensing Engineer Relationship Specialty Start Date End Date Suzy Mabry MD [address] [place] [phone] PCP - General Family Medicine 10/05/18 documented as of this encounter
--- OUTSIDE RECORDS SUMMARY | 2025-09-24 11:39 | XMS_ITS | Encounter Summary ---
Author Organization [facility] Address [address] [place] [phone] Phone Care Team Providers Care Green Building Design Specialist Name Role Phone Rigoberto Carias MD Primary Care Provider [phone] Encounter Details Date Type Department Care Team (Late st Contact Info) Description 05/18/[address] [facility] Family Medicine [address] [place] [address] Family Medicine, Physician [address] [place] [address] Social History Tobacco Use Types [...] on filedocumented in this encounter Care Teams Green Building Design Specialist Relationship Specialty Start Date End Date Rigoberto Carias MD [address] [facility] [place] [address] PCP - General 05/15/17 03/11/23 documented as of this encounter
--- OUTSIDE RECORDS SUMMARY | 2025-09-24 11:39 | XMS_ITS | Encounter Summary ---
Author Organization [employer] Address [address] [place] [address] Care Team Providers Care Phlebotomy Services Technician Name Role Phone Suzy Mabry MD Primary Care Provider [phone] Encounter Details Date Type Department Care Team (Late st Contact Info) Description 09/24/2025 Orders Only GENERIC EXTERNAL DATA DEPARTMENT Provider, Generic External Data Social History Tobacco Use Types Packs/Day Years [...] Diagnosis Comments CBC WITH AUTO DIFFERENTIAL Routine 09/24/2025 11:06 AM EST COMPREHENSIVE METABOLIC PANEL Routine 09/24/2025 11:06 AM EST documented in this encounter Results * (ABNORMAL) Comprehensive Metabolic Panel (09/24/2025 11:06 AM EST) Sodium 141 135 - 145 mmol/L [facility] Potassium 3.6 3.3 - 5.1 mmol/L [facility] Chloride 110(H) 96 - 108 mmol/L [facility] Carbon Dioxide 25 22 - 29 mmol/L [facility] Anion Gap 10(L) 12 - 20 [facility] Urea Nitrogen (BUN) 8(L) 9 - 16 mg/dL [facility] Creatinine, Serum 0.60 0.5 - 1.4 mg/dL [facility] Creatinine Clr Calc Pharmacy 112.1 [facility] Comment:Provided height and weight: 165.1 cm,68.039 kg.eGFR (calculated from the MDRD study equation) and eCrCl(calculated from the Cockcroft-Gault equation) are based ondifferent parameters and may not yield comparable results.If eCrCl result is absurd, please check patient'sheight/weight. Estimated Glomerular Filt Rate >60 [facility] Comment:Chronic Kidney Disea se: Estimated GFR < 60 mL/min/1.36m4Cdkwvw Kidney Disease: Estimated GFR < 15 mL/min/1.73m2 Glucose 99 60 - 115 mg/dL [facility] Calcium 9.1 8.4 - 10.2 mg/dL [facility] Bilirubin, Total 0.7 0.0 - 1.0 mg/dL [facility] Aspartate Amino Transferase 18 5 - 31 U/L [facility] Alanine Aminotransferase 6 0 - 31 U/L [facility] Total Protein 7.1 6.5 - 8.0 g/dL [facility] Albumin Level 4.1 3.5 - 5.0 g/dL [facility] Alkaline Phosphatase 60 39 - 117 U/L [facility] 09/24/2025 11:0 6 AM EST 09/24/2025 11:08 AM EST us Generic External Data Provider LAB BLOOD ORDERAB LES Final Result Performing Organization Address City/State/[facility] Co de Phone Number [facility] [address] [place] [phone] * (ABNORMAL) CBC auto differential (09/24/2025 11:06 AM EST) White Blood Count 9.5 4.8 - 10.8 X10*3/uL [facility] Red Blood Count 4.26 4.20 - 5.50 X10*6/uL [facility] Hemoglobin 10.3(L) 12.0 - 16.0 g/dl [facility] Hematocrit 31.4(L) 37.0 - 47.0 % [facility] Mean Corpuscular Volume 73.7(L) 80.0 - 98.0 fL [facility] Mean Corpuscular Hemoglobin 24.2(L) 27.0 - 33.0 pg [facility] Mean Corpuscular HGB Conc 32.8 31.0 - 35.0 g/dl [facility] Red Cell Distribution Width 14.6 11.0 - 16.0 % [facility] Platelet Count 321 160 - 400 X10*3/uL [facility] Mean Platelet Volume 9.8 9.4 - 12.3 fL [facility] Neutrophils Percent Auto 65.2 45 - 73 % [facility] Imm Gran Pct Auto 0.3 0.0 - 0.4 % [facility] Lymphocytes Percent Auto 24.0 20 - 40 % [facility] Monocytes Percent Auto 6.7 2 - 11 % [facility] Eosinophils Percent Auto 2.9 0 - 4 % [facility] Basophils Percent Auto 0.9 0 - 2 % [facility] NRBC Pct Auto 0.0 0.0 - 0.2 /100WBC [facility] Neutrophils Absolute Auto 6.2 2.0 - 8.3 x10*3/uL [facility] Imm Gran Abs Auto 0.03 0.00 - 0.03 X10*3/uL [facility] Lymphocytes Absolute Auto 2.3 1.2 - 4.9 X10*3/uL [facility] Monocytes Absolute Auto 0.6 0.1 - 1.2 X10*3/uL [facility] Eosinophils Absolute Auto 0.3 0.0 - 0.4 X10*3/uL [facility] Basophils Absolute Auto 0.1 0.0 - 0.2 X10*3/uL [facility] NRBC Abs Auto 0.000 0.0 - 0.012 X10*3/uL [facility] 09/24/2025 11:0 6 AM EST 09/24/2025 11:08 AM EST us Generic External Data Provider LAB BLOOD ORDERAB LES Final Result [facility] [address] [place] [phone] documented in this encounter Visit Diagnoses Not on filedocumented in this encounter Additional Health Concerns Assessment Noted Time PHQ-9 Depression Total Score: 18 025 9:13 AM EST documented as of this encounter Care Teams Phlebotomy Services Technician Relationship Specialty Start Date End Date Suzy Mabry MD [address] [place] [phone] PCP - General Family Medicine 10/05/18 documented as of this encounter
[2025-09-24 11:49] VITALS: BP 113/73; PULSE 79; RESP 16; TEMP 36.6; O2SAT 100
--- NOTE | 2025-09-24 12:21 | ED.GENADULT ---
HPI - General Adult General Chief complaint: General Medical Stated complaint: BC came out? Bleeding and in pain Time Seen by Provider: 09/24/25 11:25 Source: patient, RN notes reviewed and old records reviewed Mode of arrival: ambulatory Limitations: no limitations History of Present Illness ED Provider: Herman HPI narrative: Patient is a 40-year-old female with history of tubal ligation, AUB, anemia, recent placement of Mirena IUD on 09/12 for her AUB presenting to the emergency department stating that she noted a string from her IUD fell onto the toilet this morning. Also complains of always having lower abdominal cramping around the time of her. She also complains of white vaginal discharge and vaginal itching, requesting testing for jovita. Denies concern for STIs. States that she was told the provider cut the string during insertion of the IUD (normal procedure) and so thinks this may be the cut piece which fell out. Also notes that she just had an appointment with Hematology Oncology regarding her anemia. MD complaint: abdominal pain Related Data Home Medications ?Medication ?Instructions ?Recorded ?Confirmed multivitamin (Daily Multi-Vitamin 1 tab PO DAILY 06/27/24 09/21/25 tablet) omega-3 fatty acids 500 mg capsule 500 mg PO DAILY 07/05/25 09/21/25 vit B complex 100 combo no.2 100 See Rx Instructions .Route .COMPLEX 07/05/25 09/21/25 mg tablet,extended release (B-100 Complex ER) Previous Rx's ?Medication ?Instructions ?Recorded ferrous sulfate 325 mg (65 mg 325 mg PO DAILY anemia 30 days #30 07/10/25 iron) tablet,delayed release tabs cholecalciferol (vitamin D3) 25 25 mcg PO DAILY 3 months #90 caps 07/11/25 mcg (1,000 unit) capsule cefuroxime axetil 250 mg tablet 250 mg PO BID #14 tabs 09/24/25 fluconazole 150 mg tablet 150 mg PO Q3D 2 doses #2 tabs 09/24/25 Allergies Allergy/AdvReac Type Severity Reaction Status Date / Time No Known Allergies (No Known Allergy Verified 09/24/25 10:54 Allergies*) Review of Systems Review of Systems: As per HPI Yes all other systems are reviewed and are negative Constitutional: Constitutional: Reports as per HPI PMFSH Past Medical History Medical History IUD (intrauterine device) in place Vitamin D deficiency Heavy menses Possible exposure to STD Bleeding hemorrhoids Asthma Family history of ovarian cancer Family history of breast cancer Hx of lipoma Surgical History History of hernia surgery H/O tubal ligation Family History Family History (Updated 09/21/25 @ 13:35 by Gamal Doyle) Paternal Aunt Hx of ovarian cancer Hx of breast cancer Maternal Aunt History of uterine cancer Father History of prostate cancer Paternal Grandmother History of colon cancer Paternal Uncle History of prostate cancer Social History Social History Household Members: Children Housing: Apartment Alcohol intake: never Patient Tobacco Use Status: Never used Tobacco Smoked in Last 30 Days: No Advance Directives: No Advance Directives Information Provided: No Patient : No Current occupational status: employed 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 Blood pressure normal. Heart rate normal. Respiratory rate normal. Temperature normal. Oxygen saturation normal. Const General: cooperative, healthy appearing and no acute distress Orientation/consciousness: oriented to person, oriented to place, oriented to time and patient oriented x3 Limitations: no limitations HENMT Head: Yes normocephalic and Yes atraumatic Ears: external ears normal General nose exam: Normal external nose present Face and sinus: Yes face symmetric Mouth: oropharynx normal and moist mucous membranes Throat: Yes uvula midline Eyes Pupils: Equal, round and reactive pupils present Neck Neck: Yes normal visual inspection and Yes supple Resp Effort & Inspection: normal respiratory effort and able to speak in complete sentences Auscultation: clear to auscultation bilaterally Cardio Rate: regular rate Rhythm: regular rhythm Heart sounds: S1 normal heart sound present and S2 normal heart sound present GI Palpation (GI): Soft to palpation and nontender Auscultation: normoactive bowel sounds General: Yes no CVA tenderness Back/Spine/Pelvis Back: no CVA tenderness Skin General skin exam: elasticity normal and turgor normal Neuro General: oriented to person, oriented to place, oriented to time, patient oriented x3, moves all extremities, no focal motor deficits and CN's II-XI intact bilaterally Cranial nerves: Yes Equal, round and reactive pupils present Cognition (Neuro): normal cognition Extrem General: Yes full ROM, Yes no pedal edema and Yes no calf tenderness Psych Mental Status: mental status grossly normal Affect: normal affect Thought process: Normal thought process present Medications Administered Discontinued Medications Generic Name Dose Route Start Last Admin Trade Name Miguel Angelq PRN Reason Stop Dose Admin Ibuprofen 400 mg 09/24/25 10:59 09/24/25 11:10 Ibuprofen 400 Mg Tablet PO 09/24/25 11:00 400 mg ONCE ONE Administration Medical Decision Making Medical Decision Making [facility] Narrative: Patient is a 40-year-old female with history of tubal ligation, AUB, anemia, recent placement of Mirena IUD on 09/12 for her AUB presenting to the emergency department stating that she noted a string from her IUD fell onto the toilet this morning. On exam patient is awake, A+Ox3, VS WNL, afebrile, normal neurological exam without focal deficits, physical exam findings as above. Given reported symptoms and physical exam findings, initial differential includes but is not limited to dislodgement of IUD, anemia, UTI, BV/vulvovginal candidiasis. Labs notable for chronic stable anemia, neg hcg. Ultrasound notable for IUD in appropriate position, R ovarian cyst without evidence of torsion. My interpretation is in agreement with the radiologist's interpretation. UA notable for 1+ leukocytes, 11-20 WBCs, 1+ bacteria. Discussed treatment now versus waiting for urine culture, patient would like to start treatment with abx now. I am comfortable with this. BV panel pending, patient requesting treatment for vulvovaginal candidiasis with diflucan. Prescription sent to pharmacy. Advised close follow up with OBGYN. Return precautions discussed. Patient verbalized understanding of and agreement with plan. Differential Diagnosis Differential Diagnoses: The differential diagnosis associated with the presentation includes as per mdm Admission/Observation Consideration of admission/observation: Escalation of care including admission/observation considered Patient would have been admitted to the hospital and transferred to appropriate facility had their clinical presentation warranted hospital admission. Lab Data [facility] Lab Attestation statement: I reviewed the patient's lab results. as per [facility] 09/24/25 11:06 09/24/25 11:06 Labs: Lab Results 09/24/25 09/24/25 Range/Units 11:06 13:08 WBC 9.5 (4.8-10.8) X10*3/uL RBC 4.26 (4.20-5.50) X10*6/uL Hgb 10.3 L (12.0-16.0) g/dl Hct 31.4 L (37.0-47.0) % MCV 73.7 L (80.0-98.0) fL MCH 24.2 L (27.0-33.0) pg MCHC 32.8 (31.0-35.0) g/dl RDW 14.6 (11.0-16.0) % Plt Count 321 (160-400) X10*3/uL MPV 9.8 (9.4-12.3) fL Immature Gran % (Auto) 0.3 (0.0-0.4) % Neut % (Auto) 65.2 (45-73) % Lymph % (Auto) 24.0 (20-40) % Lipscomb % (Auto) 6.7 (2-11) % Eos % (Auto) 2.9 (0-4) % Baso % (Auto) 0.9 (0-2) % Lymph # (Auto) 2.3 (1.2-4.9) X10*3/uL Lipscomb # (Auto) 0.6 (0.1-1.2) X10*3/uL Eos # (Auto) 0.3 (0.0-0.4) X10*3/uL Baso # (Auto) 0.1 (0.0-0.2) X10*3/uL Abs Immat Gran (auto) 0.03 (0.00-0.03) X10*3/uL Absolute Neuts (auto) 6.2 (2.0-8.3) x10*3/uL Absolute Nucleated RBC 0.000 (0.0-0.012) X10*3/uL Nucleated RBC % (auto) 0.0 (0.0-0.2) /100WBC Sodium 141 (135-145) mmol/L Potassium 3.6 (3.3-5.1) mmol/L Chloride 110 H (96-108) mmol/L Carbon Dioxide 25 (22-29) mmol/L Anion Gap 10 L (12-20) BUN 8 L (9-16) mg/dL Creatinine 0.60 (0.5-1.4) mg/dL Estim Creat Clear Calc 112.1 Estimated GFR > 60 Random Glucose 99 (60-115) mg/dL Calcium 9.1 D (8.4-10.2) mg/dL Total Bilirubin 0.7 (0.0-1.0) mg/dL AST 18 (5-31) U/L ALT 6 (0-31) U/L Alkaline Phosphatase 60 (39-117) U/L Total Protein 7.1 (6.5-8.0) g/dL Albumin 4.1 (3.5-5.0) g/dL Beta HCG, Quant < 2 mIU/mL Urine Color Yellow Urine Appearance Turbid Urine pH 8.5 (5.0-9.0) Ur Specific [place] 1.025 (1.005-1.025) Urine Protein Negative (Neg-Trace) mg/dL Urine Glucose (UA) Negative (Negative) mg/dL Urine Ketones Trace (Negative) mg/dL Urine Blood Negative (Negative) Urine Nitrite Negative (Negative) Ur Leukocyte Esterase Small (1+) H (Negative) Urine RBC 0-2 (0-2) /HPF Urine WBC 11-20 H (0-5) /HPF Ur Squamous Epith Cells 6-10 (0-2) /HPF Urine Bacteria 1+ (None Seen) Hyaline Casts 0-2 (0-2) /LPF Independent Interpretation I performed an independent interpretation of an: Ultrasound Interpretation: Pelvic ultrasound notable for IUD in appropriate position, enlarged right ovary without torsion secondary to simple cyst. Radiology Impression Discussion of test interpretation with radiology: I have reviewed the radiologist's reading. Radiologist Impression: US/CT/SR - US PELVIS TRANSABDOMINAL AND TRANSVAGINAL - 10/15/23 14:37 EST Findings: Anteverted uterus measuring 9.9 x 4.1 x 5.8cm without masses. Intrauterine device in appropriate position. Normal endometrial thickness of 0.1cm. The right ovary is mildly enlarged, measuring 4.8 x 3.2 x 4.2cm, volume of 33.8mL. There is normal echogenicity and arterial/venous vascularity. Simple cyst measuring 4.0 x 2.7 x 3.7 cm.. The left ovary is normal in size, measuring 2.2 x 1.0 x 1.5cm, volume of 1.7mL. There is normal echogenicity and arterial/venous color Doppler and arterial spectral Doppler. No lesions. No free fluid. Impression: Intrauterine device in appropriate position. Enlarged right ovary without torsion secondary to a 4.0 cm simple cyst. No follow up is required. External Record Review External record reviewed: Inpatient record, Office record and Outpatient record Prescription Management I considered prescription management with: Antibiotic and Other Discharge Plan Discharge Clinical Impression: UTI (urinary tract infection), Vulvovaginal candidiasis Patient Disposition: Home, Self-Care Instructions: Urinary Tract Infection in Women (DC), Yeast Infection (ED) Additional Instructions: You were evaluated in the emergency department today to confirm appropriate placement of your IUD. Your ultrasound showed that the IUD is in the correct placement. You are being treated for urinary tract infection with antibiotics, complete the full course as prescribed. You are also being treated with Diflucan for a vaginal yeast infection. Take this as prescribed. We recommend that you follow-up with your OBGYN as needed. Return to the emergency department with any new or concerning symptoms. Prescriptions: New cefuroxime axetil 250 mg tablet 250 mg PO BID Qty: 14 0RF fluconazole 150 mg tablet 150 mg PO Q3D Qty: 2 0RF Rx Instructions: Take on tablet now, if symptoms persist, take second tablet in 72 hours (3 days) No Action ferrous sulfate 325 mg (65 mg iron) tablet,delayed release (DR/EC) 325 mg PO DAILY 30 Days Qty: 30 1RF cholecalciferol (vitamin D3) 25 mcg (1,000 unit) capsule 25 mcg PO DAILY 90 Days Qty: 90 1RF multivitamin [Daily Multi-Vitamin] Tablet 1 tab PO DAILY omega-3 fatty acids 500 mg capsule 500 mg PO DAILY B-100 Complex 100 mg tablet extended release See Rx Instructions .ROUTE .COMPLEX Rx Instructions: as directed. Print Language: Vincentian
--- NOTE | 2025-09-24 13:14 | PC.NURSE ---
Patient resting quietly. Call miles placed within reach. Visitor at the bedside. No signs of distress. Awaiting dispo.
[2025-09-24 13:15] LABS: Appearance Urine Turbid; Glucose Urine UA Negative (Negative); PH 8.5 (5.0-9.0); Specific Gravity - Urine 1.025 (1.005-1.025); UMIC TRIGGER UACC YES
[2025-09-24 13:20] LABS: UACC Culture Trigger YES
[2025-09-24 14:12] VITALS: BP 113/73; PULSE 79; RESP 16; TEMP 36.6; O2SAT 100
[2025-09-24 14:13] LABS: Bacterial Vaginosis PCR NEGATIVE (Negative); Candida Group PCR NOT DETECTED (Not Detect); Candida glab krusei PCR NOT DETECTED (Not Detect); Trichomonas vaginalis PCR NOT DETECTED (Not Detect)
== END 2025-09-24 14:12 | disposition home or self-care (01) ==
PROVIDERS: Physician Assistant Medical; Registered Nurse Emergency; Emergency Provider Emergency Medicine Emergency Medical Services; PCP Family Medicine
DX: N39.0 Urinary tract infection, site not specified (principal); B37.31 Acute candidiasis of vulva and vagina; R10.30 Lower abdominal pain, unspecified
CPT/HCPCS: 36415; 76830; 76856; 80053; 81001; 81515; 84702; 85025; 87086; 87088; 87186; 99284

== ENCOUNTER → 2025-09-24 10:59 | Outpatient (BNV) | payer MEDICAID, SELFPAY | PROVIDERS: Emergency Provider Emergency Medicine Emergency Medical Services; PCP Family Medicine; Visit Provider Radiology Diagnostic Radiology | DX: N83.291 Other ovarian cyst, right side (principal); Z97.5 Presence of (intrauterine) contraceptive device | CPT/HCPCS: 76830; 76856 ==